=== PATIENT | female | born 1970 ===

== ENCOUNTER 2020-09-25 07:52 | Outpatient (REF) | payer OTHER, SELFPAY ==
--- NOTE | 2020-09-25 | US_ITS ---
EXAMINATION: US RETROPERITONEAL LIMITED (RENAL ONLY) CLINICAL INFORMATION: Follow-up renal cyst. History of nephroblastoma. COMPARISON: None. TECHNIQUE: Routine grayscale imaging of kidneys was performed. FINDINGS: RIGHT KIDNEY: 14.6 x 5.8 x 7.7 cm (SAG x AP x TRV). The kidney is normal in size, contour, and echogenicity. Renal cortical thickness is normal. No calculi or focal parenchymal lesions. No hydronephrosis. LEFT KIDNEY: Left kidney removed 4 years ago. US/US renal BI IMPRESSION: Unremarkable right kidney. The left kidney has been surgically removed.
== END 2020-09-25 07:53 | disposition home or self-care (01) ==
LOC: HO.US 07:52
PROVIDERS: PCP Internal Medicine; Visit Provider Internal Medicine Nephrology
DX: C64.2 Malignant neoplasm of left kidney, except renal pelvis (principal); N28.1 Cyst of kidney, acquired; Z90.5 Acquired absence of kidney
CPT/HCPCS: 76775

== ENCOUNTER → 2020-10-10 07:59 | Outpatient (BNVA) | payer OTHER, SELFPAY | PROVIDERS: PCP Internal Medicine; Referring Provider Internal Medicine; Visit Provider Student in an Organized Health Care Education/Training Program | DX: Z76.89 Persons encountering health services in other specified circumstances (principal) ==

== ENCOUNTER 2020-12-15 09:30 | Outpatient (REF) | payer OTHER, SELFPAY ==
--- NOTE | 2020-12-15 | MM_ITS ---
EXAMINATION: MM SCREENING DIGITAL BREAST TOMOSYNTHESIS, BILATERAL CLINICAL INFORMATION: Screening. Asymptomatic. The lifetime risk of breast cancer based on the Tyrer-Cuzick Model is 14%. COMPARISON: Mammography: 12/10/2019, 08/28/2018, 07/15/2017 TECHNIQUE: Digital breast tomosynthesis is performed in both the craniocaudal and mediolateral oblique views along with computer-aided detection (CAD). Synthesized 2D images are generated from the tomosynthesis. FINDINGS: There are scattered areas of fibroglandular density (ACR BI-RADS breast composition Category b). There are no significant masses, abnormal calcifications, or other abnormalities. Parenchymal pattern is similar to prior exams. No significant changes. MM/MM tomosynthesis screening BI IMPRESSION: No mammographic evidence of malignancy. ASSESSMENT: BI-RADS 1: Negative RECOMMENDATION: Routine annual mammography screening. This patient's information was entered into a reminder system with a target due date for their next mammogram.
== END 2020-12-15 09:31 | disposition home or self-care (01) ==
LOC: HO.MAMMO 09:30
PROVIDERS: PCP Internal Medicine; Visit Provider Internal Medicine
DX: Z12.31 Encounter for screening mammogram for malignant neoplasm of breast (principal)
CPT/HCPCS: 77063; 77067

== ENCOUNTER 2021-01-29 09:54 | Outpatient (REF) | payer OTHER, SELFPAY ==
[2021-01-30 13:32] LABS: C. trachomatis RNA TMA NOT DETECTED (NOT DETECTED); N. gonorrhoeae RNA TMA NOT DETECTED (NOT DETECTED)
== END 2021-01-29 09:55 | disposition home or self-care (01) ==
LOC: HO.LAB 09:54
PROVIDERS: PCP Internal Medicine; Visit Provider Obstetrics & Gynecology
DX: Z01.419 Encounter for gynecological examination (general) (routine) without abnormal findings (principal); K64.9 Unspecified hemorrhoids; Z86.010 Personal history of colon polyps; Z79.899 Other long term (current) drug therapy; R10.2 Pelvic and perineal pain
CPT/HCPCS: 36415; 87491; 87591

== ENCOUNTER 2021-02-27 06:54 | Day surgery (SDC) | payer OTHER, SELFPAY ==
--- NOTE | 2021-02-26 08:51 | P.CONAN_ITS ---
Documented by User: Anisa Casarez 02/26/21 08:54 HPI - Anesthesia Eval Consult details Narrative: 50yo F for Colonoscopy PMFSH Active Problems Active Problems: All Active Problems (Updated 01/30/21 @ 15:25 by Sindhu Ocasio PA-C) Left wrist pain (Acute) Annual physical exam (Acute) Impaired glucose tolerance (Acute) Well woman exam (Acute) Pelvic pain (Acute) History of colon polyps (Acute) Anxiety and depression (Acute) GERD (gastroesophageal reflux disease) (Acute) Hypercholesterolemia (Acute) Obesity (BMI 30-39.9) (Acute) Asthma (Acute) MARIO positive (Acute) Past Medical History Medical History (Updated 02/27/21 @ 08:27 by Shannan Howard) Abdominal wall hernia MARIO positive Anxiety and depression Asthma Dysplasia of cervix, low grade (REGINE 1) GERD (gastroesophageal reflux disease) History of colon polyps History of pulmonary embolism Hypercholesterolemia Insomnia Irritable bowel syndrome Obesity (BMI 30-39.9) Peroneal tendon rupture Tubular adenoma of colon Wilms' tumor Family History Family History Father Diabetes Chronic mental illness Mother Hypertension CVD (cardiovascular disease) Cancer Maternal Grandfather Breast cancer Paternal Grandmother Breast cancer Paternal Aunt Breast cancer Brother Pancreatic cancer Daughter In good health Maternal Uncle Myocardial infarction Maternal Aunt CHF (congestive heart failure) Surgical History Surgical History History of abdominal hysterectomy History of cystoscopy History of nephrectomy Hx of breast reduction, elective Hx of colonoscopy Hx of tonsillectomy S/P peroneal tendon repair Social History Social History Household Members: Spouse and Children Alcohol intake: current Alcohol intake frequency: does not drink Alcohol type: wine Smoking Status: Never smoker Use of substances other than those prescribed or required for medical reasons: No Advance Directives: No Advance Directives Information Provided: Yes Current occupational status: employed 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 Allergies Allergy/AdvReac Type Severity Reaction Status Date / Time No Known Allergies Allergy Verified 02/20/21 16:35 Home Medications Medication Instructions Recorded Confirmed Last Taken Type acetaminophen 650 mg 650 mg PO Q8H 10/10/20 02/20/21 Unknown History tablet,extended release biotin 10 mg tablet 10 mg PO DAILY 10/10/20 02/20/21 Unknown History cholecalciferol (vitamin D3) 50 50 mcg PO DAILY 10/10/20 02/20/21 Unknown History mcg (2,000 unit) capsule fluticasone furoate 100 1 inh INHALATION DAILY 10/10/20 02/27/21 02/27/21 05:30 History mcg-vilanterol 25 mcg/dose inhalation powder multivitamin 1 tab PO DAILY 10/10/20 02/20/21 Unknown History mometasone 50 mcg/actuation nasal 2 spray INTRANASAL DAILY 12/15/20 02/20/21 Unknown History spray prenat.vits,alyce,wwo-gusk-fxhtq 1 tab PO BEDTIME 12/15/20 02/20/21 Unknown History albuterol sulfate 2 puff PO Q6H PRN 02/20/21 02/20/21 Unknown History fluticasone propionate 2 spray INTRANASAL DAILY 02/20/21 02/20/21 Unknown History Exam Exam Date and Time: February 26, 2021 0851 Assessment and Plan Assessment Anesthesia Assessment: Chart Reviewed Documented by User: Shannan Howard 02/27/21 08:31 [facility] Past Medical History Medical History (Updated 02/27/21 @ 08:27 by Shannan Howard) Abdominal wall hernia MARIO positive Anxiety and depression Asthma Dysplasia of cervix, low grade (REGINE 1) GERD (gastroesophageal reflux disease) History of colon polyps History of pulmonary embolism Hypercholesterolemia Insomnia Irritable bowel syndrome Obesity (BMI 30-39.9) Peroneal tendon rupture Tubular adenoma of colon Wilms' tumor Family History Family History Father Diabetes Chronic mental illness Mother Hypertension CVD (cardiovascular disease) Cancer Maternal Grandfather Breast cancer Paternal Grandmother Breast cancer Paternal Aunt Breast cancer Brother Pancreatic cancer Daughter In good health Maternal Uncle Myocardial infarction Maternal Aunt CHF (congestive heart failure) Family history of problems with anesthesia: No Surgical History Surgical History History of abdominal hysterectomy History of cystoscopy History of nephrectomy Hx of breast reduction, elective Hx of colonoscopy Hx of tonsillectomy S/P peroneal tendon repair History of Problems with Anesthesia: No Social History Social History Household Members: Spouse and Children Alcohol intake: current Alcohol intake frequency: does not drink Alcohol type: wine Smoking Status: Never smoker Use of substances other than those prescribed or required for medical reasons: No Advance Directives: No Advance Directives Information Provided: Yes Current occupational status: employed 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 Allergies Allergy/AdvReac Type Severity Reaction Status Date / Time No Known Allergies Allergy Verified 02/20/21 16:35 Home Medications Medication Instructions Recorded Confirmed Last Taken Type acetaminophen 650 mg 650 mg PO Q8H 10/10/20 02/20/21 Unknown History tablet,extended release biotin 10 mg tablet 10 mg PO DAILY 10/10/20 02/20/21 Unknown History cholecalciferol (vitamin D3) 50 50 mcg PO DAILY 10/10/20 02/20/21 Unknown Hi story mcg (2,000 unit) capsule fluticasone furoate 100 1 inh INHALATION DAILY 10/10/20 02/27/21 02/27/21 05:30 History mcg-vilanterol 25 mcg/dose inhalation powder multivitamin 1 tab PO DAILY 10/10/20 02/20/21 Unknown History mometasone 50 mcg/actuation nasal 2 spray INTRANASAL DAILY 12/15/20 02/20/21 Unknown History spray prenat.vits,alyce,aks-jayx-cpmii 1 tab PO BEDTIME 12/15/20 02/20/21 Unknown History albuterol sulfate 2 puff PO Q6H PRN 02/20/21 02/20/21 Unknown History fluticasone propionate 2 spray INTRANASAL DAILY 02/20/21 02/20/21 Unknown History Exam Height,Weight and Vital Signs: Height 5 ft 2 in Weight 73.028 kg Vital Signs Temp Pulse Resp BP Pulse Ox 02/27/21 07:47 97.1 F 80 16 119/60 100 Airway Mallampati Class: II TM Dist: >3cm Neck ROM: Full Loose/Missing/Broken Teeth: No (Posts in place for dental implants) Heart: RRR Lungs: CTAB Assessment and Plan Assessment Anesthesia Assessment: Anesthesia Plan Discussed and Chart Reviewed Final Anesthetic Review NPO: Yes ASA Class: II Final Preanesthetic Review: No Changes in Pt Med Stat, Meds/Allgs Chart Reviewed, Consent Obtained/Reviewed and Anes Risks/Benef Reviewed Patient Risk: Low Procedure Risk: Low Assessment/Block/Sedation in SS: Assess/Block/Sedation-SS Anesthetic Plan Anesthetic Plan: MAC: Disposition: Standard PACU
[2021-02-27 07:47] VITALS: BP 119/60; PULSE 80; RESP 16; TEMP 36.2; O2SAT 100
[2021-02-27] MEDS: Lactated Ringers 1,000 ML 100 ML IVCONT (07:54)
[2021-02-27 08:26] VITALS: BMI 29.4
--- NOTE | 2021-02-27 08:38 | MHC.SHP ---
Pre-Procedural Eval Section A The patient is an INPATIENT: No Changes since office visit: Yes Patient answered all questions; No Cold of Flu in the past 2 weeks, No New Medical Problems and No Changes in Medication The History & Physical has been completed within 30 days and I have reviewed it.: Yes Section B Chief Complaint: Hx of Colon Polyp Allergies: Allergies Allergy/AdvReac Type Severity Reaction Status Date / Time No Known Allergies Allergy Verified 02/20/21 16:35 Plan I have reviewed the history and physical and performed a pertinent physical examination on my patient. No changes have occurred unless specified.
--- NOTE | 2021-02-27 08:48 | MHC.SHP ---
Pre-Procedural Eval Section A The patient is an INPATIENT: No Changes since office visit: No Cold of Flu in the past 2 weeks, No New Medical Problems and No Changes in Medication The History & Physical has been completed within 30 days and I have reviewed it.: Yes Section B Chief Complaint: Hx of Colon Polyp; TUBULAR ADENOMA SPLENIC FLEXURE Allergies: Allergies Allergy/AdvReac Type Severity Reaction Status Date / Time No Known Allergies Allergy Verified 02/20/21 16:35 Plan I have reviewed the history and physical and performed a pertinent physical examination on my patient. No changes have occurred unless specified.YES
[2021-02-27 09:34] VITALS: BP 108/62; PULSE 90; RESP 12; TEMP 36.6; O2SAT 100
--- NOTE | 2021-02-27 09:37 | PM.OP ---
Brief Operative Note Date of Service: 02/27/21 Pre-op diagnosis: COLON CANCER SCREENING, HX [id number] FLEXURE, 2015-NEG Post-op diagnosis: other (COLON POLYPS) Procedure: COLONOSCOPY WITH EXCISIONAL POLYPECTOMY X 2(COLD BX FORCEPS) Implants: NONE Surgeon: Rebecca Baez MD Anesthesia: MAC (Jude ODEN CRNA) Estimated blood loss (mL): 5 Pathology: other (70 CM) Condition: stable Disposition: PACU
[2021-02-27 09:49] VITALS: BP 120/65; PULSE 83; RESP 17; TEMP 36.6; O2SAT 98
--- NOTE | 2021-02-27 09:51 | W.PM.OPN ---
Operative Note Operative Note Date of Service: 02/27/21 Narrative: Pre-op diagnosis: COLON CANCER SCREENING, HX [id number] FLEXURE, 2015-NEG Post-op diagnosis: other (COLON POLYPS) Procedure: COLONOSCOPY WITH EXCISIONAL POLYPECTOMY X 2(COLD BX FORCEPS) Implants: NONE Surgeon: Rebecca Baez MD Anesthesia: MAC (Jude ODEN CRNA) FINDINGS: BHAVIN:Normal sphincter tone Adult slim videocolonoscope was introduced with out difficulty. There was residual fluid retained with some turbidity. This necessitated ongoing flushing and suctioning as I advanced from rectum to ascending colon into the cecum. 1000cc of sterile water was used to allow adequated visibility. Appendiceal orifice, ileocecal valve was seen. Slow withdrawal of scope good rotational views I did identify and remove 2 polyps in the region of 70 cm.(Cold bx forceps technique.) No additional lesions seen. ARV was clear. Estimated blood loss (mL): 5 Pathology: 70 CM 2 polyps--PATH REPORT BACK @ [facility]: TUBULAR ADENOMA. Condition: stable Disposition: PACU Plan: REPEAT SCREENING IN 5 YEARS--CONSIDER 2 DAY PREP.
== END 2021-02-27 10:25 | disposition home or self-care (01) ==
PROVIDERS: PCP Internal Medicine; Visit Provider Internal Medicine Gastroenterology
PROC: 0DJD8ZZ Inspection of Lower Intestinal Tract, Via Natural or Artificial Opening Endoscopic (ICD-10-PCS; CPT 45378; principal; 2021-02-27 08:20)
DX: Z12.11 Encounter for screening for malignant neoplasm of colon (principal); Z86.010 Personal history of colon polyps; D12.4 Benign neoplasm of descending colon
CPT/HCPCS: 45380; 88305

== ENCOUNTER 2021-03-19 13:48 | Outpatient (REF) | payer OTHER, SELFPAY ==
--- NOTE | ~2021-03-19 | US_ITS ---
EXAMINATION: PELVIC ULTRASOUND CLINICAL INFORMATION: Pelvic and perineal pain COMPARISON: Previous pelvic ultrasound exam most recent January [address] of the abdomen and pelvis July 2019 TECHNIQUE: Transabdominal and transvaginal pelvic ultrasound was performed. Transvaginal exam was performed for better visualization of the ovaries. The left ovary is seen transabdominally only. FINDINGS: The patient is post partial hysterectomy. There are nabothian cysts in the cervix. The right ovary is not seen. The left ovary is slightly enlarged measuring 5 x 2.2 x 3.7 cm. There are 2 simple left ovarian cysts measuring 1.7 x 1.3 x 1.5 cm and 1.3 x 1.2 x 1.4 cm. These are new from previous exam. There is no fluid in the pelvis. US/US transvaginal IMPRESSION: Two left ovarian small simple cysts. Right ovary not seen.
--- NOTE | ~2021-03-19 | US_ITS ---
EXAMINATION: PELVIC ULTRASOUND CLINICAL INFORMATION: Pelvic and perineal pain COMPARISON: Previous pelvic ultrasound exam most recent January [address] of the abdomen and pelvis July 2019 TECHNIQUE: Transabdominal and transvaginal pelvic ultrasound was performed. Transvaginal exam was performed for better visualization of the ovaries. The left ovary is seen transabdominally only. FINDINGS: The patient is post partial hysterectomy. There are nabothian cysts in the cervix. The right ovary is not seen. The left ovary is slightly enlarged measuring 5 x 2.2 x 3.7 cm. There are 2 simple left ovarian cysts measuring 1.7 x 1.3 x 1.5 cm and 1.3 x 1.2 x 1.4 cm. These are new from previous exam. There is no fluid in the pelvis. US/US pelvic complete IMPRESSION: Two left ovarian small simple cysts. Right ovary not seen.
== END 2021-03-19 13:49 | disposition home or self-care (01) ==
LOC: HO.US 13:48
PROVIDERS: PCP Internal Medicine; Visit Provider Obstetrics & Gynecology
DX: R10.2 Pelvic and perineal pain (principal)
CPT/HCPCS: 76830; 76856

== ENCOUNTER → 2021-04-02 11:06 | Outpatient (BNVA) | payer OTHER, SELFPAY | PROVIDERS: PCP Internal Medicine; Visit Provider Obstetrics & Gynecology ==

== ENCOUNTER 2021-04-06 14:09 | Outpatient (REF) | payer OTHER, SELFPAY ==
[2021-04-06 15:04] LABS: MANUAL DIFF FLAG NO
[2021-04-06 15:07] LABS: Basophils Absolute Auto 0.1 X10*3/uL (0.0-0.2); Basophils Percent Auto 0.6 % (0-2); Eosinophils Absolute Auto 0.3 X10*3/uL (0.0-0.4); Eosinophils Percent Auto 3.2 % (0-4); Hematocrit 39.2 % (37-47); Imm Gran Abs Auto 0.02 X10*3/uL (0.00-0.03); Imm Gran Pct Auto 0.3 % (0.0-0.4); Lymphocytes Absolute Auto 2.2 X10*3/uL (1.2-4.9); Lymphocytes Percent Auto 28.2 % (20-40); Mean Corpuscular HGB Conc 33.2 g/dl (31.0-35.0); Mean Corpuscular Hemoglobin 29.8 pg (27.0-33.0); Mean Corpuscular Volume 89.9 fL (80-98); Mean Platelet Volume 10.8 fL (9.4-12.3); Monocytes Absolute Auto 0.6 X10*3/uL (0.1-1.2); Monocytes Percent Auto 7.1 % (2-11); Neutrophils Absolute Auto 4.8 X10*3/uL (2.0-8.3); Neutrophils Percent Auto 60.6 % (45-73); Platelet Count 276 X10*3/uL (160-400); Red Blood Count 4.36 X10*6/uL (4.20-5.50); Red Cell Distribution Width 12.5 % (11.0-16.0); White Blood Count 7.9 X10*3/uL (4.8-10.8)
[2021-04-06 15:33] LABS: Alanine Aminotransferase 21 U/L (0-31); Albumin Level 4.1 g/dL (3.5-5.0); Alkaline Phosphatase 81 U/L (39-117); Anion Gap 11 (12-20); Aspartate Amino Transferase 27 U/L (5-31); Bilirubin Total 0.5 mg/dL (0.0-1.0); Blood Urea Nitrogen 6 mg/dL (9-16); Calcium 9.1 mg/dL (8.4-10.2); Carbon Dioxide 24 mmol/L (22-29); Chloride 105 mmol/L (96-108); Cholesterol 235 mg/dL; Estimated Glomerular Filt Rate > 60; Glucose Random 89 mg/dL (60-115); HDL Cholesterol 57 mg/dL; LDL Cholesterol Calculated 163 mg/dl; Potassium 4.2 mmol/L (3.3-5.1); Sodium 136 mmol/L (135-145); Triglycerides 76 mg/dL
[2021-04-06 15:54] LABS: Free T4 (Free Thyroxine) 1.02 ng/dL (0.71-1.85); Vitamin D 25-OH Total 32.3 ng/mL (>30)
[2021-04-06 16:04] LABS: Folate 16.7 ng/mL (> or = 4.0); Vitamin B12 865 pg/mL (200-900)
[2021-04-07 01:14] LABS: CT PCR NOT DETECTED (Not Detect.); NG PCR NOT DETECTED (Not Detect.)
[2021-04-09 04:26] LABS: HBS Num1 5.35 mIU/mL (0-7.99); HBc Num1 0.05 S/CO (0.00-0.79); HBsAGNum1 0.22 S/CO (0.00-0.99); Hepatitis B Core Antibody Nonreactive (Nonreactive); Hepatitis B Surface Antigen Negative (Negative); ~Hepatitis B Surface Antibody NONREACTIVE (Nonreactive)
[2021-04-21 01:47] LABS: Estradiol, Ultrasensitive 157 pg/mL
== END 2021-04-06 14:10 | disposition home or self-care (01) ==
LOC: HO.LAB 14:09
PROVIDERS: Obstetrics & Gynecology; PCP Internal Medicine; Visit Provider Internal Medicine
DX: R10.2 Pelvic and perineal pain (principal); E78.00 Pure hypercholesterolemia, unspecified; K21.9 Gastro-esophageal reflux disease without esophagitis
CPT/HCPCS: 36415; 80053; 80061; 82306; 82607; 82670; 82681; 82746; 84439; 84443; 85025; 86704; 86706; 87340; 87491; 87591

== ENCOUNTER 2021-10-25 13:04 | Outpatient (REF) | payer OTHER, SELFPAY ==
[2021-10-25 10:05] LABS: Anion Gap 8 (12-20); Blood Urea Nitrogen 8 mg/dL (9-16); Calcium 8.9 mg/dL (8.4-10.2); Carbon Dioxide 26 mmol/L (22-29); Chloride 108 mmol/L (96-108); Estimated Glomerular Filt Rate > 60; Potassium 4.1 mmol/L (3.3-5.1); Sodium 138 mmol/L (135-145)
[2021-10-25 10:14] LABS: Appearance Urine CLEAR; Color Urine YELLOW; Glucose Urine UA NEG (NEG); Leukocyte Esterase Urine NEG (NEG); Nitrite Urine NEG (NEG); PH 6.5 (5.0-8.0); Urine Blood NEG (NEG); Urine Ketones NEG (NEG); Urine Protein NEG (NEG-TRACE)
[2021-10-25 11:02] LABS: Total Protein Urine Random 10 mg/dL (<12)
== END 2021-10-25 13:05 | disposition home or self-care (01) ==
LOC: HO.LAB 13:04
PROVIDERS: PCP Internal Medicine; Visit Provider Internal Medicine Nephrology
DX: C64.9 Malignant neoplasm of unspecified kidney, except renal pelvis (principal); N18.9 Chronic kidney disease, unspecified
CPT/HCPCS: 36415; 80051; 81003; 82310; 82565; 84156; 84520

== ENCOUNTER 2021-12-24 11:48 | Outpatient (REF) | payer OTHER, SELFPAY ==
--- NOTE | ~2021-12-24 | MM_ITS ---
EXAMINATION: MM SCREENING DIGITAL BREAST TOMOSYNTHESIS, BILATERAL CLINICAL INFORMATION: Screening. Asymptomatic. Prior reduction mammoplasty, 2017. Family history breast cancer, sister. The lifetime risk of breast cancer based on the Tyrer-Cuzick Model is 18%. COMPARISON: Mammography: 12/15/2020, 12/10/2019, 08/28/2018, 07/15/2017, MRI breasts 07/19/2019 TECHNIQUE: Digital breast tomosynthesis is performed in both the craniocaudal and mediolateral oblique views along with computer-aided detection (CAD). Synthesized 2D images are generated from the tomosynthesis. FINDINGS: There are scattered areas of fibroglandular density (ACR BI-RADS breast composition Category b). Parenchymal pattern is similar to prior studies. There is stable minor scarring consistent with the reduction mammoplasty. There is no interval mass or architectural abnormality or developing density. Some scattered benign round and rim calcifications are again noted. There are no significant changes. MM/MM tomosynthesis screening BI IMPRESSION: No significant changes from prior studies. ASSESSMENT: BI-RADS 2: Benign RECOMMENDATION: Routine annual mammography screening. This patient's information was entered into a reminder system with a target due date for their next mammogram.
== END 2021-12-24 11:49 | disposition home or self-care (01) ==
LOC: HO.MAMMO 11:48
PROVIDERS: Visit Provider Internal Medicine
DX: Z12.31 Encounter for screening mammogram for malignant neoplasm of breast (principal)
CPT/HCPCS: 77063; 77067

== ENCOUNTER 2022-01-30 11:34 | Outpatient (REF) | payer OTHER, SELFPAY ==
--- NOTE | ~2022-01-30 | XR_ITS ---
EXAMINATION: XR wrist RT w scaphoid CLINICAL INFORMATION: Pain COMPARISON: None TECHNIQUE: 4 views of the wrist XR/XR wrist RT w scaphoid FINDINGS/IMPRESSION: No fracture or dislocation. Joint spaces are maintained. No cortical erosion. Soft tissues are unremarkable.
== END 2022-01-30 11:35 | disposition home or self-care (01) ==
LOC: HO.XRAY 11:34
PROVIDERS: PCP Internal Medicine; Visit Provider Nurse Practitioner Family
DX: M25.531 Pain in right wrist (principal)
CPT/HCPCS: 73110

== ENCOUNTER 2022-02-04 09:56 | Outpatient (REF) | payer OTHER, SELFPAY ==
[2022-02-04 14:41] LABS: CT PCR NOT DETECTED (Not Detect.); NG PCR NOT DETECTED (Not Detect.)
[2022-02-05 14:10] LABS: BV Int Neg Control Negative (Negative); BV Int Pos Control Positive (Positive)
[2022-02-07 11:00] LABS: HPV mRNA E6/E7 rflx Not Detected (Not Detected)
== END 2022-02-04 09:57 | disposition home or self-care (01) ==
LOC: HO.LAB 09:56
PROVIDERS: Visit Provider Obstetrics & Gynecology
DX: Z01.419 Encounter for gynecological examination (general) (routine) without abnormal findings (principal); B37.3 Candidiasis of vulva and vagina
CPT/HCPCS: 87480; 87491; 87510; 87591; 87624; 87660; 88142

== ENCOUNTER → 2022-02-22 08:07 | Outpatient (BNVA) | payer OTHER, SELFPAY | PROVIDERS: Visit Provider Physician Assistant | DX: Z13.89 Encounter for screening for other disorder (principal) ==

== ENCOUNTER 2022-03-29 10:53 | Outpatient (REF) | payer OTHER, SELFPAY ==
--- NOTE | ~2022-03-29 | XR_ITS ---
EXAMINATION: BILATERAL HAND AND WRIST X-RAY CLINICAL INFORMATION: Pain. History of right wrist injury COMPARISON: None TECHNIQUE: 4 views of both hands and wrists FINDINGS: Left: Bone alignment is normal. No fracture or dislocation is seen. The joint spaces are normal. Soft tissues are normal. Right: Bone alignment is normal. No fracture or dislocation is seen. The joint spaces are normal. XR/XR hand wrist LT IMPRESSION: Unremarkable exam.
--- NOTE | ~2022-03-29 | XR_ITS ---
EXAMINATION: BILATERAL HAND AND WRIST X-RAY CLINICAL INFORMATION: Pain. History of right wrist injury COMPARISON: None TECHNIQUE: 4 views of both hands and wrists FINDINGS: Left: Bone alignment is normal. No fracture or dislocation is seen. The joint spaces are normal. Soft tissues are normal. Right: Bone alignment is normal. No fracture or dislocation is seen. The joint spaces are normal. XR/XR hand wrist RT IMPRESSION: Unremarkable exam.
[2022-03-29 11:05] LABS: MANUAL DIFF FLAG NO
[2022-03-29 11:29] LABS: Basophils Percent Auto 0.5 % (0-2); Eosinophils Absolute Auto 0.3 X10*3/uL (0.0-0.4); Hematocrit 39.1 % (37.0-47.0); Hemoglobin 12.8 g/dl (12.0-16.0); Imm Gran Abs Auto 0.02 X10*3/uL (0.00-0.03); Imm Gran Pct Auto 0.3 % (0.0-0.4); Lymphocytes Absolute Auto 2.4 X10*3/uL (1.2-4.9); Lymphocytes Percent Auto 32.4 % (20-40); Mean Corpuscular HGB Conc 32.7 g/dl (31.0-35.0); Mean Corpuscular Hemoglobin 29.2 pg (27.0-33.0); Mean Corpuscular Volume 89.3 fL (80.0-98.0); Mean Platelet Volume 10.7 fL (9.4-12.3); Monocytes Absolute Auto 0.6 X10*3/uL (0.1-1.2); Monocytes Percent Auto 7.5 % (2-11); Neutrophils Absolute Auto 4.1 x10*3/uL (2.0-8.3); Neutrophils Percent Auto 55.3 % (45-73); Platelet Count 282 X10*3/uL (160-400); Red Blood Count 4.38 X10*6/uL (4.20-5.50); White Blood Count 7.5 X10*3/uL (4.8-10.8)
[2022-03-29 11:46] LABS: Estimated Average Glucose 114 mg/dL; Hemoglobin A1c % 5.6 %
[2022-03-29 12:14] LABS: Alanine Aminotransferase 21 U/L (0-31); Albumin Level 4.1 g/dL (3.5-5.0); Alkaline Phosphatase 79 U/L (39-117); Anion Gap 11 (12-20); Aspartate Amino Transferase 25 U/L (5-31); Bilirubin Total 0.5 mg/dL (0.0-1.0); Blood Urea Nitrogen 11 mg/dL (9-16); Calcium 9.6 mg/dL (8.4-10.2); Carbon Dioxide 25 mmol/L (22-29); Chloride 109 mmol/L (96-108); Cholesterol 238 mg/dL; Estimated Glomerular Filt Rate > 60; Glucose Random 100 mg/dL (60-115); HDL Cholesterol 57 mg/dL; LDL Cholesterol Calculated 170 mg/dl; Potassium 4.2 mmol/L (3.3-5.1); Sodium 141 mmol/L (135-145); Total Protein 7.3 g/dL (6.5-8.0); Triglycerides 59 mg/dL
[2022-03-29 12:29] LABS: Thyroid Stimulating Hormone 0.95 uIU/mL (0.32-4.0); Vitamin D 25-OH Total 29.8 ng/mL (>30)
[2022-03-29 12:32] LABS: Folate 18.6 ng/mL (> or = 4.0); Vitamin B12 995 pg/mL (200-900)
== END 2022-03-29 10:54 | disposition home or self-care (01) ==
LOC: HO.XRAY 10:53
PROVIDERS: PCP Internal Medicine; Visit Provider Internal Medicine
DX: M25.532 Pain in left wrist (principal); M25.531 Pain in right wrist; E78.00 Pure hypercholesterolemia, unspecified; R73.02 Impaired glucose tolerance (oral)
CPT/HCPCS: 36415; 73110; 73130; 80053; 80061; 82306; 82607; 82746; 83036; 84439; 84443; 85025

== ENCOUNTER → 2022-04-12 08:16 | Outpatient (BNVA) | payer OTHER, SELFPAY | PROVIDERS: PCP Internal Medicine; Visit Provider Physician Assistant | DX: M65.4 Radial styloid tenosynovitis [de Quervain] (principal) | CPT/HCPCS: 99212; J1100 ==

== ENCOUNTER 2022-09-21 11:23 | Outpatient (REF) | payer OTHER, SELFPAY ==
--- NOTE | ~2022-09-21 | XR_ITS ---
EXAMINATION: XR ABDOMEN KUB CLINICAL INDICATION: Gross hematuria COMPARISON: Renal ultrasound 09/25/[address] abdomen pelvis 08/11/2019 TECHNIQUE: Single view, two film KUB of the abdomen was obtained. Overlying stool limits sensitivity for small renal calculi. FINDINGS: No focal densities are appreciated overlying the renal shadows or expected course of the ureters. Calcifications in the pelvis are most consistent with phleboliths. Nonobstructive bowel gas pattern. Moderate colonic stool burden. No acute osseous abnormality. XR/XR KUB IMPRESSION: No radiographic evidence of renal calculi overlying the renal shadows or expected course of the ureters.
== END 2022-09-21 11:24 | disposition home or self-care (01) ==
LOC: HO.HMGCX 11:23
PROVIDERS: PCP Internal Medicine; Visit Provider Physician Assistant
DX: R31.0 Gross hematuria (principal)
CPT/HCPCS: 74018

== ENCOUNTER 2022-09-27 10:35 | Outpatient (REF) | payer OTHER, SELFPAY ==
[2022-09-27 10:49] LABS: MANUAL DIFF FLAG NO
[2022-09-27 11:00] LABS: Basophils Absolute Auto 0.1 X10*3/uL (0.0-0.2); Basophils Percent Auto 0.7 % (0-2); Eosinophils Absolute Auto 0.3 X10*3/uL (0.0-0.4); Eosinophils Percent Auto 3.5 % (0-4); Hemoglobin 13.2 g/dl (12.0-16.0); Imm Gran Abs Auto 0.03 X10*3/uL (0.00-0.03); Imm Gran Pct Auto 0.4 % (0.0-0.4); Lymphocytes Absolute Auto 2.1 X10*3/uL (1.2-4.9); Lymphocytes Percent Auto 29.1 % (20-40); Mean Corpuscular Hemoglobin 29.2 pg (27.0-33.0); Mean Corpuscular Volume 88.5 fL (80.0-98.0); Mean Platelet Volume 10.5 fL (9.4-12.3); Monocytes Absolute Auto 0.5 X10*3/uL (0.1-1.2); Monocytes Percent Auto 6.8 % (2-11); Neutrophils Absolute Auto 4.2 x10*3/uL (2.0-8.3); Neutrophils Percent Auto 59.5 % (45-73); Platelet Count 297 X10*3/uL (160-400); Red Blood Count 4.52 X10*6/uL (4.20-5.50); Red Cell Distribution Width 12.7 % (11.0-16.0); White Blood Count 7.1 X10*3/uL (4.8-10.8)
[2022-09-27 11:28] LABS: Alanine Aminotransferase 15 U/L (0-31); Albumin Level 4.3 g/dL (3.5-5.0); Alkaline Phosphatase 88 U/L (39-117); Anion Gap 16 (12-20); Aspartate Amino Transferase 23 U/L (5-31); Bilirubin Total 0.5 mg/dL (0.0-1.0); Blood Urea Nitrogen 11 mg/dL (9-16); Calcium 9.6 mg/dL (8.4-10.2); Carbon Dioxide 22 mmol/L (22-29); Chloride 107 mmol/L (96-108); Estimated Glomerular Filt Rate > 60; Glucose Random 108 mg/dL (60-115); Magnesium 2.1 mg/dL (1.6-2.6); Sodium 141 mmol/L (135-145); Total Protein 7.3 g/dL (6.5-8.0)
[2022-09-27 14:56] LABS: Free T4 (Free Thyroxine) 1.35 ng/dL (0.71-1.85); Thyroid Stimulating Hormone 0.83 uIU/mL (0.32-4.0)
== END 2022-09-27 10:36 | disposition home or self-care (01) ==
LOC: HO.LAB 10:35
PROVIDERS: PCP Internal Medicine; Visit Provider Internal Medicine
DX: K52.9 Noninfective gastroenteritis and colitis, unspecified (principal)
CPT/HCPCS: 36415; 80053; 83735; 84439; 84443; 85025

== ENCOUNTER 2022-09-28 07:27 | Outpatient (REF) | payer OTHER, SELFPAY | END 2022-09-28 07:28 | disposition home or self-care (01) | LOC: HO.LNP 07:27 | PROVIDERS: Visit Provider Internal Medicine | DX: K52.9 Noninfective gastroenteritis and colitis, unspecified (principal) | CPT/HCPCS: 87177; 87209 ==

== ENCOUNTER 2022-09-30 15:06 | Outpatient (REF) | payer OTHER, SELFPAY ==
[2022-09-30 15:43] LABS: Leukocytes Stool Qualitative NEGATIVE (NEGATIVE)
[2022-09-30 17:13] LABS: CDiff Gene PCR NEGATIVE (Negative)
== END 2022-09-30 15:07 | disposition home or self-care (01) ==
LOC: HO.LNP 15:06
PROVIDERS: Visit Provider Internal Medicine
DX: K52.9 Noninfective gastroenteritis and colitis, unspecified (principal)
CPT/HCPCS: 87177; 87209; 87338; 87493; 89055

== ENCOUNTER → 2022-12-04 13:20 | Outpatient (BNVA) | payer OTHER, SELFPAY | PROVIDERS: PCP Internal Medicine; Visit Provider Internal Medicine | DX: Z13.89 Encounter for screening for other disorder (principal) ==

== ENCOUNTER 2022-12-30 11:30 | Outpatient (REF) | payer OTHER, SELFPAY ==
--- NOTE | ~2022-12-30 | MM_ITS ---
EXAMINATION: MM SCREENING DIGITAL BREAST TOMOSYNTHESIS, BILATERAL CLINICAL INFORMATION: Screening. Asymptomatic. Status post breast reduction surgery. Sister with history of breast cancer at age 32. The lifetime risk of breast cancer based on the Tyrer-Cuzick Model is 17.2%. COMPARISON: Mammography: 12/24/2021 and studies dating back to 01/22/2016. TECHNIQUE: Digital breast tomosynthesis is performed in both the craniocaudal and mediolateral oblique views along with computer-aided detection (CAD). Synthesized 2D images are generated from the tomosynthesis. FINDINGS: There are scattered areas of fibroglandular density (ACR BI-RADS breast composition Category b). Postoperative changes from reduction mammoplasty seen bilaterally. There is a stable parenchymal pattern within the left breast with no new abnormal dominant masses or suspicious grouping of microcalcifications. Within the inferior aspect of the right breast, there are a few groupings of calcifications, some of which appear to have increased in number and for which spot magnification views in craniocaudal and 90-degree mediolateral views are recommended. MM/MM tomosynthesis screening BI IMPRESSION: Right breast calcifications for further evaluation. ASSESSMENT: BI-RADS 0: Incomplete - Need additional imaging evaluation. RECOMMENDATION: 1. Additional views of the right breast. 2. Targeted ultrasound if warranted after review of the additional views. 3. Radiology department staff will contact the patient for additional imaging. This patient's information was entered into a reminder system with a target due date for their next mammogram.
== END 2022-12-30 11:31 | disposition home or self-care (01) ==
LOC: HO.MAMMO 11:30
PROVIDERS: PCP Internal Medicine; Visit Provider Internal Medicine
DX: Z12.31 Encounter for screening mammogram for malignant neoplasm of breast (principal)
CPT/HCPCS: 77063; 77067

== ENCOUNTER 2023-01-06 08:44 | Outpatient (REF) | payer OTHER, SELFPAY ==
--- NOTE | ~2023-01-06 | MM_ITS ---
EXAMINATION: MM DIAGNOSTIC DIGITAL MAMMOGRAPHY, RIGHT CLINICAL INFORMATION: Recall from screening for increased calcifications central lower right breast. Prior history reduction mammoplasty within past several years. Family history premenopausal breast cancer, sister age 32. COMPARISON: Mammography: 12/30/2022 and prior exams dating back to 03/25/2017. TECHNIQUE: Digital mammography is performed in the following views: Magnification CC, magnification ML, magnification MLO. FINDINGS: There are scattered areas of fibroglandular density (ACR BI-RADS breast composition Category b). The additional magnification views confirm some increased grouped and scattered calcifications posterior central lower right breast when compared with prior studies. Results are discussed with the patient at time of visit. Although the calcifications are of low suspicion, possibly related to the reduction mammoplasty, stereotactic sampling is suggested to confirm benignity particularly in light of family history. Patient is in agreement. MM/MM added views RT IMPRESSION: Increased calcifications posterior central lower right breast. ASSESSMENT: BI-RADS 4: Suspicious (subcategory 4A: Low suspicion for malignancy) RECOMMENDATION: Stereotactic sampling right breast calcifications. This patient's information was entered into a reminder system with a target due date for their next mammogram.
== END 2023-01-06 08:45 | disposition home or self-care (01) ==
LOC: HO.MAMMO 08:44
PROVIDERS: PCP Internal Medicine; Visit Provider Internal Medicine
DX: R92.1 Mammographic calcification found on diagnostic imaging of breast (principal)
CPT/HCPCS: 77065

== ENCOUNTER 2023-01-08 12:45 | Outpatient (REF) | payer OTHER, SELFPAY ==
--- NOTE | ~2023-01-08 | MM_ITS ---
EXAMINATION: STEREOTACTIC TOMOSYNTHESIS-GUIDED VACUUM-ASSISTED BREAST BIOPSY, RIGHT SPECIMEN RADIOGRAPH, RIGHT POST PROCEDURE DIGITAL MAMMOGRAM, RIGHT CLINICAL INFORMATION: Calcifications central lower inner right breast likely related to sequela from reduction mammoplasty. Family history premenopausal breast cancer, sister age 32. COMPARISON: Mammography 01/06/2023, 12/30/2022, 12/24/2021. TECHNIQUE/PROCEDURE: Informed consent was obtained from the patient after discussion of the benefits, risks, and alternatives to biopsy today. Patient appeared to understand. Gave opportunity for questions. Patient signed consent form. BIOPSY TABLE: [employer] Prone Biopsy System. LESION: Calcifications central lower inner right breast. LOCAL ANESTHESIA: 10 mL carbonated 1% lidocaine; 10 mL 1% lidocaine with epinephrine. DERMATOTOMY: Single skin orville dermatotomy performed. NEEDLE: Noteiva 9-gauge vacuum assisted core biopsy device. APPROACH: Medial lateral. TARGETING: Combination of digital breast tomosynthesis and stereotactic digital mammography used for targeting. CORES: 6. CLIP: Pose [employer] Cylinder-shaped marker. SPECIMEN RADIOGRAPH: Specimen radiograph is taken in separate room using digital mammography. The index calcifications are in the excised cores. There are over 12 calcifications in the cores. POST PROCEDURE UNILATERAL DIGITAL MAMMOGRAM: The post biopsy mammogram is performed in separate room using separate digital mammography equipment from the biopsy procedure. CC and LM views are obtained. There are scattered areas of fibroglandular density (breast composition category: b). The clip marker is deployed. Suspect mild medial accordion effect. No gross hematoma. The patient tolerated the procedure well. No immediate complications. Home instructions reviewed with the patient. Final pathology results are pending. MM/MM stereotactic biopsy RT IMPRESSION: 1. Digital tomosynthesis-guided core biopsy right breast with clip placement. 2. Specimen radiograph taken and post procedure mammogram. 3. Final pathology results pending. An addendum report will be issued.
[2023-01-08] MEDS: Lidocaine HCl 1 % 20 ML VIAL 9 ML SUBCUT (14:41)
[2023-01-08] MEDS: Sodium Bicarbonate 8.4% 50 MEQ/50 ML VIAL SUBCUT (14:42)
[2023-01-08] MEDS: Lidocaine HCl 1% PF/Epi 1:200,000 30 ML VIAL 10 ML SUBCUT (14:43)
== END 2023-01-08 12:46 | disposition home or self-care (01) ==
LOC: HO.MAMMO 12:45
PROVIDERS: PCP Internal Medicine; Visit Provider Surgery
DX: R92.0 Mammographic microcalcification found on diagnostic imaging of breast (principal); Z79.899 Other long term (current) drug therapy
CPT/HCPCS: 19081; 88305; A4648

== ENCOUNTER 2023-01-13 15:21 | Outpatient (REF) | payer OTHER, SELFPAY ==
[2023-01-13 16:15] LABS: C Reactive Protein 0.64 mg/dL (< or = 0.50)
[2023-01-14 14:33] LABS: Immunoglobulin A 271 mg/dL (47-310)
[2023-01-15 12:39] LABS: Transglutaminase IgA <1.0 U/mL
== END 2023-01-13 15:22 | disposition home or self-care (01) ==
LOC: HO.LAB 15:21
PROVIDERS: PCP Internal Medicine; Visit Provider Internal Medicine
DX: K52.9 Noninfective gastroenteritis and colitis, unspecified (principal)
CPT/HCPCS: 36415; 82784; 86140; 86364

== ENCOUNTER → 2023-01-14 11:14 | Outpatient (BNVA) | payer OTHER, SELFPAY | PROVIDERS: PCP Internal Medicine; Visit Provider Surgery | DX: R92.0 Mammographic microcalcification found on diagnostic imaging of breast (principal) ==

== ENCOUNTER 2023-01-14 12:50 | Outpatient (REF) | payer OTHER, SELFPAY ==
[2023-01-14 14:05] LABS: Leukocytes Stool Qualitative NEGATIVE (NEGATIVE)
[2023-01-14 15:04] LABS: Campylobacter Not Detected (Not Detect.); Cryptosporidium Not Detected (Not Detect.); E. coli EAEC Not Detected (Not Detect.); E. coli EPEC Not Detected (Not Detect.); E. coli ETEC Not Detected (Not Detect.); E. coli STEC Not Detected (Not Detect.); Plesiomonas shigelloides Not Detected (Not Detect.); Salmonella Not Detected (Not Detect.); Shigella sp./EIEC Not Detected (Not Detect.); Vibrio Not Detected (Not Detect.); Vibrio Cholerae Not Detected (Not Detect.); Yersinia enterocolitica Not Detected (Not Detect.)
[2023-01-14 15:05] LABS: Adenovirus F 40/41 Not Detected (Not Detect.); Astrovirus Not Detected (Not Detect.); Cyclospora cayetanensis Not Detected (Not Detect.); Entamoeba histolytica Not Detected (Not Detect.); Giardia lamblia Not Detected (Not Detect.); Norovirus GI/GII Not Detected (Not Detect.); Rotavirus A Not Detected (Not Detect.); Sapovirus Not Detected (Not Detect.)
[2023-01-21 00:40] LABS: Calprotectin, Fecal 6 mcg/g
== END 2023-01-14 12:51 | disposition home or self-care (01) ==
LOC: HO.LNP 12:50
PROVIDERS: Visit Provider Internal Medicine
DX: K52.9 Noninfective gastroenteritis and colitis, unspecified (principal)
CPT/HCPCS: 83993; 87507; 89055

== ENCOUNTER 2023-01-15 10:02 | Day surgery (SDC) | payer OTHER, SELFPAY ==
[2023-01-09 10:53] VITALS: BMI 27.4
[2023-01-15] VITALS (7 sets, daily range): BP systolic 113–141; BP diastolic 62–83; PULSE 76–97; RESP 18–20; TEMP 36.2–36.9; O2SAT 94–100; BMI 25.9
[2023-01-15] MEDS: Lactated Ringers 1,000 ML 50 ML IVCONT (12:28)
--- NOTE | 2023-01-15 12:55 | MHC.SHP ---
Pre-Procedural Eval Section A Date of Service: 01/15/23 Section B Chief Complaint: Chronic diarrhea, weight loss Details of Present Illness: Medical History Abdominal wall hernia MARIO positive Asthma De Quervain's disease (radial styloid tenosynovitis) Dysplasia of cervix, low grade (REGINE 1) GERD (gastroesophageal reflux disease) History of colon polyps History of pulmonary embolism Hypercholesterolemia Insomnia Irritable bowel syndrome Obesity (BMI 30-39.9) Peroneal tendon rupture Tubular adenoma of colon Wilms' tumor Surgical History History of abdominal hysterectomy History of cystoscopy History of nephrectomy Hx of breast reduction, elective Hx of colonoscopy Hx of tonsillectomy S/P peroneal tendon repair Allergies: Allergies Allergy/AdvReac Type Severity Reaction Status Date / Time No Known Allergies Allergy Verified 01/14/23 11:23 Review of Systems Review of Systems Comment: 10 point ROS negative except as above Exam Exam Comment: Gen appear: No acute distress, well nourished HEENT: no icterus Chest: No overt resp distress Abd: soft, nontender, nondistended Psych: Stable affect, answering questions appropriately Neuro: A/Ox3 noted to move all extremities spontaneously Ext: no peripheral edema Plan Diagnosis/Plan: Unchanged I have reviewed the history and physical and performed a pertinent physical examination on my patient. No changes have occurred unless specified. Time Spent With Patient Time: Total time managing care of this patient today ____ minutes.
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
--- NOTE | 2023-01-15 12:58 | P.OP_ITS ---
Operative Note Operative Note Date of Service: 01/15/23 Narrative: Procedure:?Esophagogastroduodenoscopy and Colonoscopy Indication:?Chronic diarrhea, weight loss Endoscopist:?Anna Marie Quiroz MD Anesthesia Provider:?Dr Winnie Jennings Anesthesia type:?MAC converted to general anesthesia. Instrument:?Olympus GIF-H190, [id number]-[id number] EGD Procedure:?? The procedure, indications, preparation and potential complications were reviewed with the patient, who indicated understanding and gave written informed consent to proceed. A physical exam was performed. The endoscope was introduced through the mouth, and advanced to the second part of the duodenum. The mucosa was carefully examined on slow withdrawal of the endoscope. The patient then developed laryngo and bronchospasm and dropped her O2 sats. She was intubated by the anesthesia provider and the procedure was then resumed. The patient tolerated the procedure well thereafter. There were no immediate complications.? ? EGD Findings:? * Esophagus: Normal mucosa noted in the entire esophagus. The Z line was at 39 cm. * Stomach:?Normal stomach mucosa. Random gastric biopsies were taken to rule out H Pylori infection. * Duodenum:? Normal mucosa to the extent seen.? Cold forceps biopsies were taken duodenal bulb and 2nd portion of the duodenum to rule out celiac sprue. Colonoscopy Procedure:? The patient was then turned for the colonoscopy. A digital rectal exam was performed which was normal. The colonoscope was then inserted through the anus and advanced through the colon to the cecum at 75 cm and terminal ileum. The appendiceal orifice and ileocecal valve was identified.? Mucosa was carefully examined under high definition white light as the instrument was slowly withdrawn in a retrograde panoramic fashion. Ascending colon was intubated twice. Retroflexion was performed in rectum. The procedure was somewhat difficult due to looping of scope in transverse colon. There were no immediate obvious complications. The quality of the prep was BBPS: 2+2+3 = adequate Withdrawal time 14 minutes. Limitations: No limitations. Colonoscopy Findings: Mucosa: Normal mucosa in whole colon and terminal ileum. Cold forceps biospies were taken from right and left side of the colon to rule out microscopic colitis. Protruding lesions: * 3 sessile polyp of size 3-6 mm in transverse colon. Cold snare polypectomy was performed. The polyps were completely removed and retrieved. * 1 pedunculated polyp of size 8 mm in transverse colon. Hot snare polypectomy was performed. The polyp was completely removed and retrieved. * Large internal hemorrhoids without stigmata of recent bleeding. Excavated lesions: * Moderate diverticulosis of sigmoid colon. Impression:? * Normal esophagus * Normal stomach (biopsy) * Normal duodenum (biopsy) * Normal terminal ileum mucosa * Normal colon mucosa (biopsy) * Internal hemorrhoids Recommendations:?? * Follow path results. * If microscopic colitis confirmed on path, will trial budesonide. * If all polyps are adenoma repeat colonoscopy recommended in 3 years. Above has been reviewed with the patient.
--- NOTE | 2023-01-15 15:10 | PC.NURSE ---
DR. ANDERSEN AWARE PATIENT LUNG SOUNDS TIGHT DRY COUGH. NEW ORDERS ANESTHESIA PULLED DUONEB TREATMENT
== END 2023-01-15 16:20 | disposition home or self-care (01) ==
PROVIDERS: PCP Internal Medicine; Visit Provider Internal Medicine
PROC: (CPT 45385; principal; 2023-01-15 11:20)
DX: K52.9 Noninfective gastroenteritis and colitis, unspecified (principal); Z86.010 Personal history of colon polyps; R63.4 Abnormal weight loss; Z68.27 Body mass index [BMI] 27.0-27.9, adult; D12.3 Benign neoplasm of transverse colon; K57.30 Diverticulosis of large intestine without perforation or abscess without bleeding; K64.8 Other hemorrhoids; K21.9 Gastro-esophageal reflux disease without esophagitis; J45.909 Unspecified asthma, uncomplicated; Z90.5 Acquired absence of kidney; Z85.528 Personal history of other malignant neoplasm of kidney; R76.0 Raised antibody titer; E78.00 Pure hypercholesterolemia, unspecified; Z79.899 Other long term (current) drug therapy
CPT/HCPCS: 45385; 45380; 43239; 88305; 88342; J0330; J1100; J2250; J2370; J2405; J3010

== ENCOUNTER → 2023-01-27 09:03 | Outpatient (BNVA) | payer OTHER, SELFPAY | PROVIDERS: PCP Internal Medicine; Visit Provider Internal Medicine | DX: Z13.89 Encounter for screening for other disorder (principal) ==

== ENCOUNTER 2023-03-04 10:08 | Outpatient (REF) | payer OTHER, SELFPAY ==
[2023-03-04 12:11] LABS: Appearance Urine Clear; Color Urine Yellow; Glucose Urine UA Negative (Negative); Leukocyte Esterase Urine Negative (Negative); Nitrite Urine Negative (Negative); PH 5.5 (5.0-9.0); Specific Gravity - Urine 1.015 (1.005-1.025); Urine Blood Negative (Negative); Urine Ketones Negative (Negative); Urine Protein Negative (Neg-Trace)
== END 2023-03-04 10:09 | disposition home or self-care (01) ==
LOC: HO.LAB 10:08
PROVIDERS: PCP Internal Medicine; Visit Provider Internal Medicine
DX: R31.0 Gross hematuria (principal)
CPT/HCPCS: 81003

== ENCOUNTER 2023-06-17 09:17 | Outpatient (AMB) | payer OTHER, SELFPAY ==
--- NOTE | 2023-06-17 09:35 | A.OFFVIS_ITS ---
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 No complaints. Last Pap/HPV was negative in 02/12 Last Mammogram was BI-RADS 4 a, biopsy showed benign tissue fibroadenoma Last Colonoscopy was in 01/16, the recommendation was to repeat in 5 years [facility] Medical History Abdominal wall hernia MARIO positive Asthma De Quervain's disease (radial styloid tenosynovitis) Dysplasia of cervix, low grade (REGINE 1) GERD (gastroesophageal reflux disease) History of colon polyps History of pulmonary embolism Hypercholesterolemia Insomnia Irritable bowel syndrome Obesity (BMI 30-39.9) Peroneal tendon rupture Tubular adenoma of colon Wilms' tumor Surgical History History of abdominal hysterectomy History of cystoscopy History of esophagogastroduodenoscopy (EGD) History of nephrectomy Hx of breast biopsy Hx of breast reduction, elective Hx of colonoscopy Hx of tonsillectomy S/P peroneal tendon repair Family History Father Diabetes Chronic mental illness Mental health disorder Mother Hypertension CVD (cardiovascular disease) Cancer Maternal Grandfather Breast cancer Paternal Grandmother Breast cancer Paternal Aunt Breast cancer Brother Pancreatic cancer Daughter In good health Maternal Uncle Myocardial infarction Maternal Aunt CHF (congestive heart failure) Social History Household Members: Spouse and Children Housing: Apartment Are you a primary certified social workers in health care to a significant other at home: No Do you presently have visiting nurse or other home services: No Alcohol intake: current Alcohol intake frequency: holidays/special occasions only Alcohol type: wine Patient Tobacco Use Status: Never used Tobacco e-Cigarette/Vaping Use: Never Used Second Hand Smoke Exposure: No service: No Current occupational status: unemployed 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 Sexually active: Yes Sexual orientation: Straight/Heterosexual Gender identity: Female Cognitive needs: No Hearing needs: No Vision needs: No Female Reproductive History Menstrual Age of Menarche: 10 Menopause type: natural Total pregnancies: 3 Full term: 3 Number of Living Children: 3 Date of last pap smear: 02/05/22 Date of Mammogram: 01/06/23 Review of Systems Const All systems reviewed & are unremarkable except as noted in HPI and below Card Reports as per HPI Resp Reports as per HPI GI Reports as per HPI and Reports no additional complaints Reports as per HPI Physical Exam Vital Signs: Last Vital Signs BP 116/68 06/17/23 09:36 BMI result Body Mass Index 28.5 Const General: cooperative, healthy appearing and comfortable Chest Chest palpation & inspection: normal inspection of the chest and normal palpation of entire chest wall Breast/axilla inspection: normal inspection of the breasts and normal inspection of the axillae Breast/axilla palpation: normal palpation of the breasts, normal palpation of the axillae and no axillary lymphadenopathy Resp Effort & Inspection: normal respiratory effort Auscultation: clear to auscultation bilaterally Percussion: percussion normal Cardio Palpation: normal PMI Rate: regular rate Rhythm: regular rhythm Heart sounds: no murmurs and no rubs Peripheral pulses: Peripheral pulses 2+ throughout GI Inspection: Yes normal to inspection Palpation (GI): Soft to palpation, nontender, no guarding, not rigid and No hepatosplenomegaly present Percussion: Yes normal to percussion Auscultation: normal bowel sounds Rectal Exam - Female: deferred General: Yes bladder normal to palpation External Female Exam: No lesion Speculum Exam - Vagina: normal appearance of the vagina, normal palpation, normal vaginal discharge and not erythematous Speculum Exam - Cervix: normal appearance of the cervix and normal palpation Bimanual exam- vagina & uterus: normal bimanual exam, normal palpation, uterine size normal, bladder normal to palpation, consistency normal and normal palpation Bimanual Exam- Adnexa, other: normal adnexae, no masses and no tenderness Assessment & Plan Assessment & Plan (1) Well woman exam: Code(s): Z01.419 - Encounter for gynecological examination (general) (routine) without abnormal findings Plan: Co testing not indicated this year. Counseled the patient about the recommended dietary allowance of 1200 mg of Calcium & 600 IU of vitamin D. Instructions given the patient to schedule her next screening Mammogram in 01/17, the patient is up-to-date with her screening colonoscopy . The patient was instructed to perform monthly self-breast exams and schedule annual exam in a year; all questions answered and the patient verbalized understanding. Coding Level of Care Code Est Pt Prev Care 40-64y(85438) Diagnoses Well woman exam Z01.419
[2023-06-17 09:36] VITALS: BP 116/68; BMI 28.5
== END 2023-06-17 10:13 | disposition home or self-care (01) ==
LOC: HO.HWS 09:17
PROVIDERS: PCP Internal Medicine; Visit Provider Obstetrics & Gynecology
DX: Z01.419 Encounter for gynecological examination (general) (routine) without abnormal findings (principal)
CPT/HCPCS: 99396

== ENCOUNTER → 2023-06-17 09:17 | Outpatient (BNVA) | payer OTHER, SELFPAY | PROVIDERS: PCP Internal Medicine; Visit Provider Obstetrics & Gynecology ==

== ENCOUNTER 2023-07-22 12:03 | Outpatient (REF) | payer OTHER, SELFPAY ==
--- NOTE | ~2023-07-22 | MM_ITS ---
EXAMINATION: MM DIAGNOSTIC DIGITAL MAMMOGRAPHY, RIGHT CLINICAL INFORMATION: Follow-up right breast calcifications status post benign stereotactic biopsy. COMPARISON: Mammography: 01/06/2023, 12/30/2022, 12/24/2021, and stereotactic biopsy 01/08/2023. TECHNIQUE: Digital mammography is performed utilizing 2-D spot magnification right CC and ML views. FINDINGS: There are scattered areas of fibroglandular density (ACR BI-RADS breast composition Category b). There is a biopsy clip in the approximately 5:00 location just inferior to the nipple line marking site of biopsy. There is a cylinder-shaped clip in this region, and a markedly decreased amount of calcifications in this region. No new calcifications, or aggressive changes are apparent. Findings are benign. Results are provided to the patient at time of visit by the technologist. MM/MM diagnostic mammo unilat RT IMPRESSION: Stable post biopsy changes right breast 5:00 axis without new aggressive features. Recommend the patient resume annual screening routine mammography. ASSESSMENT: BI-RADS BI-RADS 2 - Benign Findings RECOMMENDATION: 1 year F/U This patient's information was entered into a reminder system with a target due date for their next mammogram.
== END 2023-07-22 12:04 | disposition home or self-care (01) ==
LOC: HO.MAMMO 12:03
PROVIDERS: Visit Provider Surgery
DX: R92.8 Other abnormal and inconclusive findings on diagnostic imaging of breast (principal)
CPT/HCPCS: 77062; 77065

== ENCOUNTER → 2023-07-22 12:30 | Outpatient (BNV) | payer OTHER, SELFPAY | PROVIDERS: Visit Provider Radiology Diagnostic Radiology | DX: R92.1 Mammographic calcification found on diagnostic imaging of breast (principal) | CPT/HCPCS: 77065 ==

== ENCOUNTER 2023-07-31 09:43 | Outpatient (AMB) | payer OTHER, SELFPAY ==
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
[2023-07-31 09:46] VITALS: BP 144/90; PULSE 95; O2SAT 98; BMI 27.1
== END 2023-07-31 10:19 | disposition home or self-care (01) ==
PROVIDERS: PCP Internal Medicine; Visit Provider Nurse Practitioner Family
DX: F41.1 Generalized anxiety disorder (principal); F32.A Depression, unspecified
CPT/HCPCS: 99213

== ENCOUNTER 2023-09-17 10:00 | Outpatient (AMB) | payer OTHER, SELFPAY ==
--- NOTE | 2023-09-17 10:04 | MHC.PC.OV ---
Vital Signs 09/17/23 10:06 Height 5 ft 2 in Weight 148 lb BMI 27.1 BP 122/72 Blood Pressure Location Lt brachial Position Sitting Intake Visit Reasons: [facility], Hallucinations, 09/05-09/05 Intake Note: Patient is here for hospital discharge follow up. Patient was discharged from [facility] on 09/05/23 . Machine I Cutter Required: No Dispatcher Bus And Trolley: Present Accompanied by: Spouse Allergies No Known Allergies Allergy (Verified 09/28/23 13:06) Medication List - Last Reconciled 09/28/23 by Byron Kat MD acetaminophen ER (Tylenol Arthritis Pain) 650 mg PO Q8H albuterol sulfate 90 mcg/actuation 2 puffs PO Q6H PRN budesonide-formoterol 160-4.5 mcg/actuation (Symbicort) 2 puffs inhalation Q12H bupropion HCl 100 mg PO BID cholecalciferol (vitamin D3) 50 mcg PO DAILY fluticasone propionate 50 mcg/actuation 2 sprays intranasal DAILY hydroxyzine HCl 25 mg PO BID PRN multivitamin 1 tab PO DAILY quetiapine 25 mg PO BEDTIME Tobacco use date assessed: 09/17/23 Dental Screening Dental Screen Date: 09/17/23 HPI [facility], Hallucinations, 09/05-09/05 HPI Details 52-year-old female presents to the office after a recent hospitalization. Patient was in the psychiatry wing of the hospital after she had an acute episode of hallucinations. Her noted that she was talking to inanimate objects and took her to the hospital. She was there for a week and has been discharged home on Seroquel. Patient feels fine and reports she is at baseline state of health. [facility] Medical History (Updated 07/31/23 @ 10:19 by SAURAV King) De Quervain's disease (radial styloid tenosynovitis) Hypercholesterolemia History of colon polyps Peroneal tendon rupture Abdominal wall hernia History of pulmonary embolism Wilms' tumor Insomnia Dysplasia of cervix, low grade (REGINE 1) GERD (gastroesophageal reflux disease) Tubular adenoma of colon Obesity (BMI 30-39.9) Asthma Irritable bowel syndrome MARIO positive Surgical History History of esophagogastroduodenoscopy (EGD) Hx of breast biopsy History of cystoscopy Hx of colonoscopy S/P peroneal tendon repair History of nephrectomy Hx of breast reduction, elective Hx of tonsillectomy History of abdominal hysterectomy Family History Father Diabetes Chronic mental illness Mental health disorder Mother Hypertension CVD (cardiovascular disease) Cancer Maternal Grandfather Breast cancer Paternal Grandmother Breast cancer Paternal Aunt Breast cancer Brother Pancreatic cancer Daughter In good health Maternal Uncle Myocardial infarction Maternal Aunt CHF (congestive heart failure) Social History Household Members: Spouse and Children Housing: Apartment Are you a primary lawn care professional to a significant other at home: No Do you presently have visiting nurse or other home services: No Alcohol intake: current Alcohol intake frequency: holidays/special occasions only Alcohol type: wine Patient Tobacco Use Status: Never used Tobacco e-Cigarette/Vaping Use: Never Used Second Hand Smoke Exposure: No service: No Current occupational status: unemployed 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 Harsh Levy, Jacqueline Renee, Fransisco Granger and colleagues, with an educational valery from [employer]. Physical exam (Primary Care) Vital Signs: Last Vital Signs BP 122/72 09/17/23 10:06 BMI result Body Mass Index 27.1 Tobacco/Smoking Status: Tobacco use Status Tobacco use date assessed 09/17/23 09/17/23 10:13 Patient Tobacco Use Status Never used Tobacco 09/17/23 10:13 e-Cigarette/Vaping Use Never Used 09/17/23 10:13 Thrive Assessment: Date of Thrive Assessment Date Thrive assessed 12/27/22 09/17/23 10:13 Const General: cooperative and healthy appearing Nutritional Appearance: well nourished Orientation/consciousness: patient oriented x3 Limitations: no limitations HENMT Head: Yes normal to inspection Eyes General: appearance normal, both eyes and all related structures Neck Neck: Yes normal visual inspection Chest Chest palpation & inspection: normal palpation of entire chest wall Resp Effort & Inspection: normal respiratory effort Neuro General: patient oriented x3 Assessment and Plan Assessment & Plan (1) Depression: Code(s): F32.A - Depression, unspecified Plan: Patient does not have any psychotic symptoms now. She has an appointment with a psychiatrist. Encouraged her to keep it. Medications: Changed From fluticasone propionate 50 mcg/actuation 2 sprays intranasal DAILY 48 mL 3RF To fluticasone propionate 50 mcg/actuation 2 sprays intranasal DAILY 48 mL 3RF From albuterol sulfate 90 mcg/actuation 2 puffs PO Q6H PRN 8.5 grams 2RF Wheezing J45.909 - Unspecified asthma, uncomplicated To albuterol sulfate 90 mcg/actuation 2 puffs PO Q6H PRN 8.5 grams 2RF Wheezing J45.909 - Unspecified asthma, uncomplicated Refilled hydroxyzine HCl 25 mg PO BID PRN 14 tabs 0RF anxietyu F41.1 - Generalized anxiety disorder Coding Level of Care Code Est Pt Level 4 (85290) Diagnoses Depression F32.A
[2023-09-17 10:06] VITALS: BP 122/72; BMI 27.1
== END 2023-09-17 10:52 | disposition home or self-care (01) ==
PROVIDERS: PCP Internal Medicine; Visit Provider Internal Medicine
DX: F32.A Depression, unspecified (principal)
CPT/HCPCS: 99214

== ENCOUNTER 2023-10-22 13:50 | Outpatient (AMB) | payer OTHER, SELFPAY ==
--- NOTE | 2023-10-22 14:12 | HO.NEPHOV_ITS ---
HPI HPI Comments History of Present Illness Details I had the privilege of seeing Marlen in follow-up of her acquired solitary kidney and a renal cyst. 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 She does not have any hematuria, night sweats, urinary symptoms, nausea, vomiting, diarrhea, chest pain, shortness of breath, proximal nocturnal dyspnea or orthopnea. She does not have any pedal edema. Her blood pressure has been at goal. She has no protein or blood in the urine. Her renal functions had been stable. She recently had hospitalization for hallucinations. Currently she does not have any systemic complaints. She does not take any nonsteroidal anti-inflammatory medications and tries to keep herself well hydrated. [facility] Medical History (Updated 10/22/23 @ 14:42 by Srinivas Pinto MD) De Quervain's disease (radial styloid tenosynovitis) Hypercholesterolemia History of colon polyps Peroneal tendon rupture Abdominal wall hernia History of pulmonary embolism Wilms' tumor Insomnia Dysplasia of cervix, low grade (REGINE 1) GERD (gastroesophageal reflux disease) Tubular adenoma of colon Obesity (BMI 30-39.9) Asthma Irritable bowel syndrome MARIO positive Surgical History History of esophagogastroduodenoscopy (EGD) Hx of breast biopsy History of cystoscopy Hx of colonoscopy S/P peroneal tendon repair History of nephrectomy Hx of breast reduction, elective Hx of tonsillectomy History of abdominal hysterectomy Family History Father Diabetes Chronic mental illness Mental health disorder Mother Hypertension CVD (cardiovascular disease) Cancer Maternal Grandfather Breast cancer Paternal Grandmother Breast cancer Paternal Aunt Breast cancer Brother Pancreatic cancer Daughter In good health Maternal Uncle Myocardial infarction Maternal Aunt CHF (congestive heart failure) Social History Household Members: Spouse and Children Housing: Apartment Are you a primary rn complex care to a significant other at home: No Do you presently have visiting nurse or other home services: No Alcohol intake: current Alcohol intake frequency: holidays/special occasions only Alcohol type: wine Patient Tobacco Use Status: Never used Tobacco e-Cigarette/Vaping Use: Never Used Second Hand Smoke Exposure: No service: No Current occupational status: unemployed 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 Sexual orientation: Straight/Heterosexual Gender identity: Female Cognitive needs: No Hearing needs: No Vision needs: No Female Reproductive History Menstrual Age of Menarche: 10 Vital Signs 10/22/23 14:14 Height 5 ft 2 in Weight 147 lb 6 oz BMI 27.0 BP 130/80 Blood Pressure Location Lt brachial Position Sitting Pulse 69 Pulse Source Pulse Oximeter Physical Exam Vital Signs: Last Vital Signs Pulse 69 10/22/23 14:14 BP 130/80 10/22/23 14:14 BMI result Body Mass Index 27.0 Const General: comfortable and no acute distress Orientation/consciousness: patient oriented x3 HEENT Head: Yes normocephalic Mouth: Normal oral and palatal mucosa present Eyes EOM: EOMs intact bilaterally Neck Neck: Yes supple Resp Auscultation: clear to auscultation bilaterally Cardio Jugular venous distension: no JVD Rate: regular rate GI Palpation (GI): Soft to palpation Auscultation: normal bowel sounds General: Yes no CVA tenderness Back/Spine/Pelvis Back: no CVA tenderness Skin General skin exam: no rashes or lesions noted Neuro General: patient oriented x3 and moves all extremities Extrem General: Yes no pedal edema Assessment & Plan Assessment & Plan (1) Solitary kidney, acquired: Code(s): Z90.5 - Acquired absence of kidney Plan 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 Her renal functions are at baseline. She does not have blood or protein in the urine. Her blood pressure is at goal. Her volume status is optimal. She needs to lose weight. She needs to hydrate herself well and avoid nonsteroidal anti-inflammatory medications. Her last renal imaging studies were unremarkable. I did not make any medication changes today. All her and her 's questions were answered. Follow-up laboratory workup ordered. Time spent retrieving data, documentation and patient encounter 24 minutes. Follow-up given. Orders: Orders Electrolytes 11 Months Z90.5 - Acquired absence of kidney Blood Urea Nitrogen 11 Months Z90.5 - Acquired absence of kidney Creatinine 11 Months Z90.5 - Acquired absence of kidney Calcium 11 Months Z90.5 - Acquired absence of kidney UA and rflx microscopic 11 Months Z90.5 - Acquired absence of kidney Protein Creatinine Ratio, Ur 11 Months Z90.5 - Acquired absence of kidney Coding Level of Care Code Est Pt Level 3 (80104) Diagnoses Solitary kidney, acquired Z90.5
[2023-10-22 14:14] VITALS: BP 130/80; PULSE 69; BMI 27.0
== END 2023-10-22 14:44 | disposition home or self-care (01) ==
PROVIDERS: PCP Internal Medicine; Visit Provider Internal Medicine Nephrology
DX: Z90.5 Acquired absence of kidney (principal)
CPT/HCPCS: 99213

== ENCOUNTER → 2023-10-22 13:50 | Outpatient (BNVA) | payer OTHER, SELFPAY | PROVIDERS: PCP Internal Medicine; Visit Provider Internal Medicine Nephrology ==

== ENCOUNTER 2023-12-04 13:02 | Outpatient (AMB) | payer OTHER, SELFPAY ==
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
[2023-12-04 13:11] VITALS: BP 124/72; BMI 26.2
== END 2023-12-04 14:04 | disposition home or self-care (01) ==
PROVIDERS: PCP Internal Medicine; Visit Provider Nurse Practitioner Family
DX: R41.89 Other symptoms and signs involving cognitive functions and awareness (principal); R44.3 Hallucinations, unspecified
CPT/HCPCS: 99204

== ENCOUNTER → 2023-12-04 13:02 | Outpatient (BNVA) | payer OTHER, SELFPAY | PROVIDERS: PCP Internal Medicine; Visit Provider Nurse Practitioner Family ==

== ENCOUNTER 2023-12-26 06:14 | Outpatient (REF) | payer OTHER, SELFPAY ==
--- NOTE | 2023-12-26 06:27 | EEG_ITS ---
This is a 16-channel EEG with an EKG lead. The patient is reported awake and drowsy during the tracing. Background EEG rhythm is mostly medium amplitude theta range with intermittent right hemispheric sharp and slow wave complexes. Photic stimulation does not produce any significant abnormality. Hyperventilation is not performed. Cardiac lead does not reveal any significant abnormality. IMPRESSION: Abnormal EEG suggestive of right hemispheric seizure focus, which could result in partial and complex partial seizure disorder. MD MIRYAM Shepherd/DENZEL / [phone]
== END 2023-12-26 06:15 | disposition home or self-care (01) ==
LOC: HO.NEURO 06:14
PROVIDERS: PCP Internal Medicine; Visit Provider Nurse Practitioner Family
DX: R41.89 Other symptoms and signs involving cognitive functions and awareness (principal)
CPT/HCPCS: 95819

== ENCOUNTER 2024-01-05 11:23 | Outpatient (REF) | payer OTHER, SELFPAY ==
--- NOTE | ~2024-01-05 | MM_ITS ---
EXAMINATION: MM SCREENING DIGITAL BREAST TOMOSYNTHESIS, BILATERAL CLINICAL INFORMATION: Screening. Asymptomatic. Patient is status post bilateral breast reduction surgery. COMPARISON: Mammography: This study is compared with prior exams dating back to 2018. TECHNIQUE: Digital breast tomosynthesis is performed in both the craniocaudal and mediolateral oblique views along with computer-aided detection (CAD). Synthesized 2D images are generated from the tomosynthesis. FINDINGS: There are scattered areas of fibroglandular density (ACR BI-RADS breast composition Category b). There are no significant masses, abnormal calcifications, or other abnormalities. There is a tissue marker in the medial aspect of the right breast from prior benign stereotactic biopsy. Few, benign residual calcifications remain in close association with the tissue marker in the deep third of the right breast. There are minor post reduction changes in each breast. MM/MM tomosynthesis screening BI IMPRESSION: No mammographic evidence of malignancy. ASSESSMENT: BI-RADS BI-RADS 2 - Benign Findings RECOMMENDATION: Routine annual mammography screening. 1 year F/U This examination should not preclude the clinical evaluation of a suspicious palpable abnormality. This patient's information was entered into a reminder system with a target due date for their next mammogram.
== END 2024-01-05 11:24 | disposition home or self-care (01) ==
LOC: HO.MAMMO 11:23
PROVIDERS: PCP Internal Medicine; Visit Provider Internal Medicine
DX: Z12.31 Encounter for screening mammogram for malignant neoplasm of breast (principal)
CPT/HCPCS: 77063; 77067

== ENCOUNTER → 2024-01-05 11:30 | Outpatient (BNV) | payer OTHER, SELFPAY | PROVIDERS: PCP Internal Medicine; Visit Provider Radiology Diagnostic Radiology | DX: Z12.31 Encounter for screening mammogram for malignant neoplasm of breast (principal) | CPT/HCPCS: 77063; 77067 ==

== ENCOUNTER 2024-01-08 09:57 | Outpatient (AMB) | payer OTHER, SELFPAY ==
[2024-01-08 10:08] VITALS: BP 130/68; PULSE 71; O2SAT 98; BMI 26.0
--- NOTE | 2024-01-08 10:08 | A.OFFPC_ITS ---
Vital Signs 01/08/24 10:08 Height 5 ft 2 in Weight 142 lb BMI 26.0 BP 130/68 Blood Pressure Location Lt brachial Position Sitting Pulse 71 Pulse Source Pulse Oximeter Pulse Oximetry (%) 98 Oxygen Delivery Method Room Air Intake Visit Reasons: Annual Exam Allergies No Known Allergies Allergy (Verified 01/08/24 10:08) Medication List - Last Reconciled 01/08/24 by Danitza Headley MD acetaminophen ER (Tylenol Arthritis Pain) 650 mg PO Q8H albuterol sulfate 90 mcg/actuation 2 puffs PO Q6H PRN alprazolam mg PO aripiprazole 15 mg PO DAILY budesonide-formoterol 160-4.5 mcg/actuation (Symbicort) 2 puffs inhalation Q12H fluticasone propionate 50 mcg/actuation 2 sprays intranasal DAILY multivitamin 1 tab PO DAILY quetiapine 25 mg PO BEDTIME sertraline 25 mg PO DAILY Tobacco use date assessed: 01/08/24 Dental Screening Dental Screen Date: 01/08/24 Did you have a dental visit in the last 12 months?: Yes Did you have a dental problem in the last 6 months where you did not have access to dental care?: No Was dental information given to patient?: Patient has dentist HPI Annual Exam HPI Details 53-year-old overweight female with a his tory of solitary kidney, generalized anxiety disorder impaired glucose tolerance hypercholesterolemia and GERD coming in for physical exam last seen July 2023. Patient's mammogram is due this month colonoscopy is up-to-date December 2022. Review of the notes had an EEG done showing/suggestive of right hemispheric seizure focus which could result in partial/complex partial seizure. This workup was done due to concerns about hallucinations and memory problems patient has schizophrenia issues. Noted MMSE score of 15. Patient also follows up with Nephrology history of nephrolithiasis stoma years old had nephrectomy. MRI planned February 03, 2024 [facility] Medical History (Updated 01/08/24 @ 10:46 by Danitza Headley MD) Obesity (BMI 30-39.9) De Quervain's disease (radial styloid tenosynovitis) Hypercholesterolemia History of colon polyps Peroneal tendon rupture Abdominal wall hernia History of pulmonary embolism Wilms' tumor Insomnia Dysplasia of cervix, low grade (REGINE 1) GERD (gastroesophageal reflux disease) Tubular adenoma of colon Asthma Irritable bowel syndrome MARIO positive Surgical History History of esophagogastroduodenoscopy (EGD) Hx of breast biopsy History of cystoscopy Hx of colonoscopy S/P peroneal tendon repair History of nephrectomy Hx of breast reduction, elective Hx of tonsillectomy History of abdominal hysterectomy Family History Father Diabetes Chronic mental illness Mental health disorder Mother Hypertension CVD (cardiovascular disease) Cancer Maternal Grandfather Breast cancer Paternal Grandmother Breast cancer Paternal Aunt Breast cancer Brother Pancreatic cancer Daughter In good health Maternal Uncle Myocardial infarction Maternal Aunt CHF (congestive heart failure) Social History (Updated 01/08/24 @ 10:55 by Danitza Headley MD) Household Members: Spouse and Children Housing: Apartment Are you a primary respiratory care specialist to a significant other at home: No Do you presently have visiting nurse or other home services: No Alcohol intake: current Alcohol intake frequency: holidays/special occasions only Alcohol type: wine Comment: glass 1-2 x a week Patient Tobacco Use Status: Never used Tobacco e-Cigarette/Vaping Use: Never Used Second Hand Smoke Exposure: No service: No Current occupational status: unemployed 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 1. Little interest or pleasure in doing things: more than half the days 2. Feeling down, depressed, or hopeless: nearly every day 3. Trouble falling or staying asleep, or sleeping too much: not at all 4. Feeling tired or having little energy: nearly every day 5. Poor appetite or overeating: more than half the days 6. Feeling bad about yourself - or that you are a failure or have let yourself or your family down: nearly every day 7. Trouble concentrating on things, such as reading the newspaper or watching television: more than half the days 8. Moving or speaking so slowly that other people could have noticed. Or the opposite - being so fidgety or restless that you have been moving around a lot more than usual: several days 9. Thoughts that you would be better off or of hurting yourself in some way: not at all Total score: 16 Depression Screening Interpretation: Positive Depression Screening Done: Yes 18598 - PHQ-9 Billing: Yes Source: Developed by Drs. Harsh Levy, Jacqueline Renee, Fransisco Granger and colleagues, with an educational valery from [employer]. Thrive Questionnaire Date Thrive assessed: 01/08/24 I am a: Patient What is your living situation today?: I have a steady place to live Within the past 12 months, did the food you bought not last and you didn't have the money to get more?: Never true Within the past 12 months, did you worry whether your food would run out before you got money to buy more?: Never true Do you have trouble paying for medicines?: No Do you have trouble getting transportation to medical appointments?: No Do you have trouble paying your heating and electricity bill?: No Do you have trouble taking care of your child, family member or friend?: No Do you have trouble with day-to-day activities such as bathing, preparing meals, shopping, managing finances, etc.?: No Are you currently unemployed and looking for a job?: No Are you interested in more education?: No Currently or been in a relationship where the following occur: no concerns reported THRIVE Score: 0 AUDIT C Alcohol Use Questionnaire (AUDIT-C) 1. How often do you have a drink containing alcohol?: Monthly or less 2. How many drinks containing alcohol do you have on a typical day when you are drinking?: 1 or 2 3. How often do you have six or more drinks on one occasion?: Never Total Score: 1 Score Reviewed/Action Taken: No MARY JO-7 AMB Questionnaire MARY JO-7 Date MARY JO - 7 assessed: 01/08/24 Feeling nervous, anxious, or on edge: 2 = More than half the days Not being able to stop or control worryin = More than half the days Worrying too much about different things: 2 = More than half the days Trouble relaxin = Several days Being so restless that it is hard to sit still: 1 = Several days Becoming easily annoyed or irritable: 0 = Not at all Feeling afraid as if something awful might happen: 2 = More than half the days Total MARY JO-7 score (0-4 normal; 5-9 mild; 10-14 moderate; 15-21 severe): 10 Source: Developed by Drs. Harsh Levy, Jacqueline Renee, Fransisco Granger and colleagues, with an educational valery from [employer]. Review of Systems Const Denies poor appetite and Denies weakness Eyes Denies no additional complaints ENT Reports Normal hearing present, Denies dizziness, Denies nasal congestion, Denies tinnitus and Denies sore throat Card Denies chest pain, Denies syncope, Denies rapid heart rate and Denies dyspnea Resp Denies cough and Denies dyspnea GI Denies change in stool character, Reports constipation, Denies diarrhea, Denies nausea and Denies vomiting Denies urinary frequency, Denies difficulty voiding and Denies dysuria Neuro Reports Normal hearing present, Denies confusion, Denies dizziness, Denies syncope and Denies weakness Psych Denies confusion Physical exam (Primary Care) Vital Signs: Last Vital Signs Pulse 71 01/08/24 10:08 BP 130/68 01/08/24 10:08 Pulse Ox 98 01/08/24 10:08 Oxygen Delivery Method Room Air 01/08/24 10:08 BMI result Body Mass Index 26.0 Tobacco/Smoking Status: Tobacco use Status Tobacco use date assessed 01/08/24 01/08/24 10:11 Patient Tobacco Use Status Never used Tobacco 01/08/24 10:11 e-Cigarette/Vaping Use Never Used 01/08/24 10:11 PHQ-9: PHQ-9 Score PHQ-9: Total score 16 01/08/24 10:27 Depression Screening Interpretation: Positive Thrive Assessment: Date of Thrive Assessment Date Thrive assessed 01/08/24 01/08/24 10:11 Currently or been in a relationship where the following occur: no concerns reported Const General: No confusion Orientation/consciousness: No confusion HENMT Head: Yes normocephalic Ears: external ears normal and TM's normal bilaterally Face and sinus: Yes normal facial exam Mouth: moist mucous membranes Throat: Yes tonsils normal Eyes Conjunctivae: conjunctivae normal Pupils: Equal, round and reactive pupils present and Pupil accommodation reflex normal Direct Ophthalmoscopy: normal light reflex Neck Neck: No lymphadenopathy Thyroid: Thyroid normal Chest Chest palpation & inspection: normal inspection of the chest Resp Effort & Inspection: normal respiratory effort and no audible wheezes Auscultation: clear to auscultation bilaterally, no crackles, no wheezes and lung sounds not diminished Cardio Rate: regular rate Rhythm: regular rhythm Peripheral pulses: radial pulses present and dorsalis pedis present GI Palpation (GI): no masses Auscultation: normal bowel sounds and normoactive bowel sounds Rectal Exam - Female: deferred Skin General skin exam: no rashes or lesions noted Rashes: no rashes Neuro General: No confusion Cranial nerves: Yes Equal, round and reactive pupils present and Yes Normal hearing present Cognition (Neuro): normal cognition Gait exam (Neuro): Normal gait present Motor exam (neuro): 5/5 motor strength present throughout Deep tendon reflexes (DTR's): Right brachioradialis reflex intensity grade: 2+, Left brachioradialis reflex intensity grade: 2+, Right patellar reflex intensity grade: 2+ and Left patellar reflex intensity grade: 2+ Extrem General: No edema Assessment and Plan Assessment & Plan (1) Annual physical exam: Code(s): Z00.00 - Encounter for general adult medical examination without abnormal findings (2) Asthma: Comment: Stable Code(s): J45.909 - Unspecified asthma, uncomplicated Qualifiers: Asthma severity: mild Asthma persistence: intermittent Asthma complication type: uncomplicated Qualified Code(s): J45.20 - Mild intermittent asthma, uncomplicated Plan: Continue with the inhaler as needed on Symbicort (3) GERD (gastroesophageal reflux disease): Code(s): K21.9 - Gastro-esophageal reflux disease without esophagitis Qualifiers: Esophagitis presence: without esophagitis Qualified Code(s): K21.9 - Gastro-esophageal reflux disease without esophagitis Plan: Avoid the foods that causes that usually spicy foods, tomato products, juices, coffee, soda and foods that your sensitive to. After eating do not lie down, allow 3-4 hours before in lie down. And keep the head of bed above 30 degrees to avoid the acid from going up. (4) Generalized anxiety disorder: Code(s): F41.1 - Generalized anxiety disorder Plan: Continue with present medication (5) Impaired glucose tolerance: Code(s): R73.02 - Impaired glucose tolerance (oral) Plan: Decrease the amount of carbohydrate intake, pasta, bread, rice and potatoes are all sugar and that is aside from all the sweet stuff, remember that fruits are good but they are Sweet also. (6) Hypercholesterolemia: Code(s): E78.00 - Pure hypercholesterolemia, unspecified Plan: Avoid fried foods, chicken skin, eggs, butter margarine, pastries and meat. 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 Renal function is stable (8) Cognitive impairment: Code(s): R41.89 - Other symptoms and signs involving cognitive functions and awareness Plan: Patient has met with Neurology and workup presently underway. Had an EEG done showing abnormal EEG seizure focus. Coding Level of Care Code Est Pt Prev Care 40-64y(98021) Diagnoses Annual physical exam Z00.00 Mild intermittent asthma without complication J45.20 Asthma severity: mild Asthma persistence: intermittent Asthma complication type: uncomplicated Gastroesophageal reflux disease without esophagitis K21.9 Esophagitis presence: without esophagitis Generalized anxiety disorder F41.1 Impaired glucose tolerance R73.02 Hypercholesterolemia E78.00 Solitary kidney, acquired Z90.5 Cognitive impairment R41.89
== END 2024-01-08 11:09 | disposition home or self-care (01) ==
PROVIDERS: PCP Internal Medicine; Visit Provider Internal Medicine
DX: Z00.00 Encounter for general adult medical examination without abnormal findings (principal); J45.20 Mild intermittent asthma, uncomplicated; K21.9 Gastro-esophageal reflux disease without esophagitis; F41.1 Generalized anxiety disorder; R73.02 Impaired glucose tolerance (oral); E78.00 Pure hypercholesterolemia, unspecified; Z90.5 Acquired absence of kidney; R41.89 Other symptoms and signs involving cognitive functions and awareness
CPT/HCPCS: 99396

== ENCOUNTER 2024-02-04 09:23 | Outpatient (REF) | payer OTHER, SELFPAY ==
--- NOTE | ~2024-02-04 | MR_ITS ---
EXAMINATION: MR BRAIN WITH AND WITHOUT CONTRAST CLINICAL INFORMATION: Abnormal EEG suggestive of right hemispheric seizure focus COMPARISON: None. TECHNIQUE: MRI of the brain was obtained using routine sequences before and following administration of intravenous contrast. A total of 6.5 mL of Gadavist was administered intravenously. FINDINGS: Dedicated coronal oblique imaging through the temporal lobes reveal symmetric appearance of the bilateral hippocampi with normal morphology and signal intensity. No evidence of mesial temporal sclerosis. No identifiable malformation of cortical development. No acute infarct. The GRE sequence is without susceptibility artifact to suggest acute or chronic blood products. No extra-axial fluid collection. Mild global cerebral volume loss. Left cerebellar developmental venous anomaly. No significant mass effect or herniation pattern. The intracranial dural venous sinus and arterial flow voids are preserved. Minimally low-lying cerebellar tonsils terminating just below the foramen magnum. The orbits are grossly unremarkable. The paranasal sinuses and mastoids are well aerated. Normal marrow signal. MR/MR head/brain wo/w con IMPRESSION: No structural epileptogenic lesion identified within limitations of a 1.5 [facility] examination. No hippocampal pathology. Mild global cerebral volume loss.
[2024-02-04] MEDS: gadobutroL 7.5 ML VIAL IVPUSH (10:24)
== END 2024-02-04 09:24 | disposition home or self-care (01) ==
LOC: HO.MRI 09:23
PROVIDERS: PCP Internal Medicine; Visit Provider Nurse Practitioner Family
DX: R41.89 Other symptoms and signs involving cognitive functions and awareness (principal); R94.01 Abnormal electroencephalogram [EEG]
CPT/HCPCS: 70553; A9585

== ENCOUNTER 2024-02-10 15:00 | Outpatient (AMB) | payer OTHER, SELFPAY ==
--- NOTE | 2024-02-10 15:03 | MHC.OFFVIS ---
Vital Signs 02/10/24 15:10 Height 5 ft 2 in Weight 140 lb 4 oz BMI 25.6 BP 132/80 Blood Pressure Location Lt brachial Position Sitting Pulse 66 Pulse Source Pulse Oximeter Pulse Oximetry (%) 96 Oxygen Delivery Method Room Air Intake Visit Reasons: 2m memory loss and EEG - LVM w/address Intake Note: Patient presents 2 months f/u. Allergies No Known Allergies Allergy (Verified 01/08/24 10:08) HPI Comments Details: 53 y/o female patient presents for follow up of hallucination and cognitive impairment. Brain MRI result reviewed. No structural epileptogenic lesion identified within limitations of a 1.5 [facility] examination. No hippocampal pathology. Mild global cerebral volume loss. EEG result was Abnormal EEG suggestive of right hemispheric seizure focus, which could result in partial and complex partial seizure disorder. PET scan of brain ordered, but not done yet. Pt's states that patient has hard time figuring out the dressing, needs help for. She can take a shower herself and brush her teeth. She is on aripirazole, and seroquel, she is doing much better, no visual or auditory hallucination. She trying to keep writing journal for daily tasks and activities, but having difficulty keeping it. [facility] Medical History (Updated 03/15/24 @ 15:13 by Ethan Alvarez CNP) Obesity (BMI 30-39.9) De Quervain's disease (radial styloid tenosynovitis) Hypercholesterolemia History of colon polyps Peroneal tendon rupture Abdominal wall hernia History of pulmonary embolism Wilms' tumor Insomnia Dysplasia of cervix, low grade (REGINE 1) GERD (gastroesophageal reflux disease) Tubular adenoma of colon Asthma Irritable bowel syndrome MARIO positive Surgical History History of esophagogastroduodenoscopy (EGD) Hx of breast biopsy History of cystoscopy Hx of colonoscopy S/P peroneal tendon repair History of nephrectomy Hx of breast reduction, elective Hx of tonsillectomy History of abdominal hysterectomy Family History Father Diabetes Chronic mental illness Mental health disorder Mother Hypertension CVD (cardiovascular disease) Cancer Maternal Grandfather Breast cancer Paternal Grandmother Breast cancer Paternal Aunt Breast cancer Brother Pancreatic cancer Daughter In good health Maternal Uncle Myocardial infarction Maternal Aunt CHF (congestive heart failure) Social History Household Members: Spouse and Children Housing: Apartment Are you a primary career technology teacher to a significant other at home: No Do you presently have visiting nurse or other home services: No Alcohol intake: current Alcohol intake frequency: holidays/special occasions only Alcohol type: wine Comment: glass 1-2 x a week Patient Tobacco Use Status: Never used Tobacco e-Cigarette/Vaping Use: Never Used Second Hand Smoke Exposure: No service: No Current occupational status: unemployed 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 Sexual orientation: Straight/Heterosexual Gender identity: Female Cognitive needs: No Hearing needs: No Vision needs: Yes Female Reproductive History Menstrual Age of Menarche: 10 Physical Exam Vital Signs: Last Vital Signs Pulse 66 02/10/24 15:10 BP 132/80 02/10/24 15:10 Pulse Ox 96 02/10/24 15:10 Oxygen Delivery Method Room Air 02/10/24 15:10 BMI result Body Mass Index 25.6 Assessment & Plan Assessment & Plan (1) Cognitive impairment: Code(s): R41.89 - Other symptoms and signs involving cognitive functions and awareness Category: Medical (2) Hallucination: Code(s): R44.3 - Hallucinations, unspecified Category: Medical (3) Partial seizure: Code(s): R56.9 - Unspecified convulsions Category: Medical Plan Start trileptal 300 mg daily for a week and then increased to 300 mg BID. Continue to take abilify 15 mg daily and quetiapine 25 mg daily to manage hallucination. Continue to participate in physical, social and cognitive activities. Medications: New oxcarbazepine (Trileptal) 300 mg PO BID 60 tabs 1RF 30 days
[2024-02-10 15:10] VITALS: BP 132/80; PULSE 66; O2SAT 96; BMI 25.6
== END 2024-02-10 15:30 | disposition home or self-care (01) ==
PROVIDERS: PCP Internal Medicine; Visit Provider Nurse Practitioner Family
DX: R41.89 Other symptoms and signs involving cognitive functions and awareness (principal); R44.3 Hallucinations, unspecified; R56.9 Unspecified convulsions
CPT/HCPCS: 99214

== ENCOUNTER → 2024-02-10 15:00 | Outpatient (BNVA) | payer OTHER, SELFPAY | PROVIDERS: PCP Internal Medicine; Visit Provider Nurse Practitioner Family ==

== ENCOUNTER 2024-03-24 08:29 | Outpatient (REF) | payer OTHER, SELFPAY | END 2024-03-24 08:30 | disposition home or self-care (01) | LOC: HO.HKASLDS 08:29 | PROVIDERS: PCP Internal Medicine; Visit Provider Nurse Practitioner Family | DX: Z13.89 Encounter for screening for other disorder (principal) ==

== ENCOUNTER 2024-03-24 08:29 | Outpatient (AMB) | payer OTHER, SELFPAY ==
--- NOTE | 2024-03-24 08:35 | MHC.OFFVIS ---
Vital Signs 03/24/24 08:41 Height 5 ft 2 in Weight 142 lb 6 oz BMI 26.0 BP 134/80 Blood Pressure Location Lt brachial Position Sitting Pulse 75 Pulse Source Pulse Oximeter Pulse Oximetry (%) 95 Oxygen Delivery Method Room Air Intake Visit Reasons: 2m memory loss and EEG - LVM w/address Intake Note: Patient presents for 2 months f/u. Allergies No Known Allergies Allergy (Verified 03/24/24 08:40) HPI Comments Details: 53 y/o female patient presents with her for follow up of hallucination and cognitive impairment. Brain MRI result reviewed. No structural epileptogenic lesion identified within limitations of a 1.5 [facility] examination. No hippocampal pathology. Mild global cerebral volume loss. EEG result was Abnormal EEG suggestive of right hemispheric seizure focus, which could result in partial and complex partial seizure disorder. Pt started trileptal 300 mg BID. PET scan of brain ordered, but not done yet. Pt's states that patient is more confused, has hard time figuring out the dressing, needs help for. She is forgetting her name, too. She is physically active, but need assistance for ADLs. She is on aripirazole, and seroquel, she is doing much better, no visual or auditory hallucination. Pt was [facility] to [facility] for hallucination last year, and started abilify and seroquel. She is followed by psychiatrist. Pt has family hx of Alzheimer, her father and her sister, they all had early onset of Alzheimer. [facility] Medical History (Updated 03/15/24 @ 15:13 by Ethan Alvarez CNP) Obesity (BMI 30-39.9) De Quervain's disease (radial styloid tenosynovitis) Hypercholesterolemia History of colon polyps Peroneal tendon rupture Abdominal wall hernia History of pulmonary embolism Wilms' tumor Insomnia Dysplasia of cervix, low grade (REGINE 1) GERD (gastroesophageal reflux disease) Tubular adenoma of colon Asthma Irritable bowel syndrome MARIO positive Surgical History History of esophagogastroduodenoscopy (EGD) Hx of breast biopsy History of cystoscopy Hx of colonoscopy S/P peroneal tendon repair History of nephrectomy Hx of breast reduction, elective Hx of tonsillectomy History of abdominal hysterectomy Family History Father Diabetes Chronic mental illness Mental health disorder Mother Hypertension CVD (cardiovascular disease) Cancer Maternal Grandfather Breast cancer Paternal Grandmother Breast cancer Paternal Aunt Breast cancer Brother Pancreatic cancer Daughter In good health Maternal Uncle Myocardial infarction Maternal Aunt CHF (congestive heart failure) Social History Household Members: Spouse and Children Housing: Apartment Are you a primary healthcare network consultant to a significant other at home: No Do you presently have visiting nurse or other home services: No Alcohol intake: current Alcohol intake frequency: holidays/special occasions only Alcohol type: wine Comment: glass 1-2 x a week Patient Tobacco Use Status: Never used Tobacco e-Cigarette/Vaping Use: Never Used Second Hand Smoke Exposure: No service: No Current occupational status: unemployed 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 Sexual orientation: Straight/Heterosexual Gender identity: Female Cognitive needs: No Hearing needs: No Vision needs: Yes Female Reproductive History Menstrual Age of Menarche: 10 Review of Systems Const All systems reviewed & are unremarkable except as noted in HPI and below Physical Exam Vital Signs: Last Vital Signs Pulse 75 03/24/24 08:41 BP 134/80 03/24/24 08:41 Pulse Ox 95 03/24/24 08:41 Oxygen Delivery Method Room Air 03/24/24 08:41 BMI result Body Mass Index 26.0 Const General: cooperative Nutritional Appearance: overweight Orientation/consciousness: oriented to person Neck Neck: Yes full ROM and Yes supple Resp Effort & Inspection: normal respiratory effort and able to speak in complete sentences Neuro General: oriented to person Cranial nerves: Yes CN's II-XII intact bilaterally Gait exam (Neuro): Normal gait present Motor exam (neuro): 5/5 motor strength present throughout, Pronator motor function not present and no tremor noted Deep tendon reflexes (DTR's): Rt Biceps (C5, C6): 2+, Left biceps reflex intensity grade: 2+, Right brachioradialis reflex intensity grade: 2+, Left brachioradialis reflex intensity grade: 2+, Right patellar reflex intensity grade: 2+ and Left patellar reflex intensity grade: 2+ Coordination: [id number] test normal Psych Appearance: grossly normal Mental Status: mental status grossly normal Speech and movement: Normal speech and movement present Affect: normal affect Attitude: cooperative Assessment & Plan Assessment & Plan (1) Cognitive impairment: Code(s): R41.89 - Other symptoms and signs involving cognitive functions and awareness Category: Medical (2) Hallucination: Code(s): R44.3 - Hallucinations, unspecified Category: Medical (3) Partial seizure: Code(s): R56.9 - Unspecified convulsions Category: Medical Plan Pt was evaluated and discussed the plan of care with Dr. Bhatt. Continue trileptal 300 mg BID. Advised patient to start donepezil, 5 mg daily for two weeks and then increase to 10 mg daily. Start memantine titraion when donepeizl 10 mg starts. Will consider lumbar puncture after PET scan done. Continue to take abilify 15 mg daily and quetiapine 25 mg daily to manage hallucination. Continue to participate in physical, social and cognitive activities. Orders: Orders Complete Blood Count Auto Diff Today R41.89 - Other symptoms and signs involving cognitive functions and awareness, R56.9 - Unspecified convulsions Comprehensive Met. Panel Today R41.89 - Other symptoms and signs involving cognitive functions and awareness, R56.9 - Unspecified convulsions Medications: New memantine 7 mg PO DAILY 14 days 14 ea 0RF memantine Start after finishing memantine 7 mg. 14 mg PO DAILY 14 days 14 ea 0RF memantine 28 mg PO DAILY 90 ea 1RF donepezil 5 mg daily for 2 weeks and then increase to 10 mg daily. 10 mg PO BEDTIME 90 days 90 tabs 1RF memantine Start after finishing memantine 14 mg. 21 mg PO DAILY 14 days 14 ea 0RF Coding Level of Care Code Est Pt Level 4 (98012) Diagnoses Cognitive impairment R41.89 Hallucination R44.3 Partial seizure R56.9
[2024-03-24 08:41] VITALS: BP 134/80; PULSE 75; O2SAT 95; BMI 26.0
== END 2024-03-24 09:17 | disposition home or self-care (01) ==
PROVIDERS: PCP Internal Medicine; Visit Provider Nurse Practitioner Family
DX: R41.89 Other symptoms and signs involving cognitive functions and awareness (principal); R44.3 Hallucinations, unspecified; R56.9 Unspecified convulsions
CPT/HCPCS: 99214

== ENCOUNTER 2024-03-24 09:25 | Outpatient (REF) | payer OTHER, SELFPAY ==
[2024-03-24 14:24] LABS: MANUAL DIFF FLAG NO
[2024-03-24 14:41] LABS: Basophils Absolute Auto 0.1 X10*3/uL (0.0-0.2); Eosinophils Absolute Auto 0.4 X10*3/uL (0.0-0.4); Hematocrit 37.3 % (37.0-47.0); Hemoglobin 12.4 g/dl (12.0-16.0); Imm Gran Abs Auto 0.01 X10*3/uL (0.00-0.03); Imm Gran Pct Auto 0.2 % (0.0-0.4); Lymphocytes Absolute Auto 1.9 X10*3/uL (1.2-4.9); Lymphocytes Percent Auto 32.1 % (20-40); Mean Corpuscular HGB Conc 33.2 g/dl (31.0-35.0); Mean Corpuscular Hemoglobin 29.9 pg (27.0-33.0); Mean Corpuscular Volume 89.9 fL (80.0-98.0); Mean Platelet Volume 11.3 fL (9.4-12.3); Monocytes Absolute Auto 0.4 X10*3/uL (0.1-1.2); Monocytes Percent Auto 6.5 % (2-11); Neutrophils Absolute Auto 3.3 x10*3/uL (2.0-8.3); Neutrophils Percent Auto 54.2 % (45-73); Platelet Count 262 X10*3/uL (160-400); Red Blood Count 4.15 X10*6/uL (4.20-5.50); Red Cell Distribution Width 13.2 % (11.0-16.0)
[2024-03-24 14:46] LABS: Estimated Average Glucose 114 mg/dL; Hemoglobin A1c % 5.6 % (<6.0)
[2024-03-24 15:38] LABS: Alanine Aminotransferase 15 U/L (0-31); Alkaline Phosphatase 85 U/L (39-117); Anion Gap 12 (12-20); Aspartate Amino Transferase 24 U/L (5-31); Bilirubin Total 0.3 mg/dL (0.0-1.0); Blood Urea Nitrogen 10 mg/dL (9-16); Calcium 9.6 mg/dL (8.4-10.2); Carbon Dioxide 27 mmol/L (22-29); Chloride 108 mmol/L (96-108); Cholesterol 234 mg/dL (<200); Estimated Glomerular Filt Rate > 60; Glucose Random 92 mg/dL (60-115); HDL Cholesterol 72 mg/dL (>40); LDL Cholesterol Calculated 150 mg/dL (<100); Potassium 3.9 mmol/L (3.3-5.1); Sodium 143 mmol/L (135-145); Triglycerides 62 mg/dL (<150)
[2024-03-24 15:45] LABS: Folate 13.3 ng/mL (> or = 4.0); Vitamin B12 1082 pg/mL (200-900)
[2024-03-24 15:46] LABS: Thyroid Stimulating Hormone 0.84 uIU/mL (0.32-4.0); Vitamin D 25-OH Total 37.6 ng/mL (>30)
== END 2024-03-24 09:26 | disposition home or self-care (01) ==
LOC: HO.MAMMO 09:25
PROVIDERS: PCP Internal Medicine; Visit Provider Internal Medicine
DX: R73.02 Impaired glucose tolerance (oral) (principal); E78.00 Pure hypercholesterolemia, unspecified
CPT/HCPCS: 36415; 80053; 80061; 82306; 82607; 82746; 83036; 84439; 84443; 85025

== ENCOUNTER 2024-04-15 09:24 | Outpatient (AMB) | payer OTHER, SELFPAY ==
--- NOTE | 2024-04-15 09:26 | MHC.PC.OV ---
Vital Signs 04/15/24 09:28 Height 5 ft 2 in Weight 139 lb BMI 25.4 BP 118/70 Blood Pressure Location Lt brachial Position Sitting Pulse 79 Pulse Source Pulse Oximeter Pulse Oximetry (%) 98 Oxygen Delivery Method Room Air Intake Visit Reasons: seizure, MARY JO Allergies No Known Allergies Allergy (Verified 04/15/24 09:28) Tobacco use date assessed: 01/08/24 Dental Screening Dental Screen Date: 01/08/24 HPI seizure, MARY JO HPI Details 53-year-old female with a history of asthma GERD generalized anxiety disorder impaired glucose tolerance hypercholesterolemia coming in for follow-up. Last seen for physical exam in December 2023. Patient's mammogram is up-to-date colonoscopy done in December 2022 advised 3 years. Patient has been having problems with memory and has been referred to Neurology MRI done negative but an EEG done showing right hemispheric seizure focus question of partial/complex partial seizure disorder started on Trileptal. PET scan has been ordered patient has been placed on Abilify and Seroquel which helps the hallucinations she is followed up by psychiatrist patient advised to continue with Trileptal 300 mg twice a day donepezil 10 mg once a day and recommended mountain titration patient was advised to have lumbar puncture as well as the PET scan [facility] Medical History (Updated 03/15/24 @ 15:13 by Ethan Alvarez CNP) Obesity (BMI 30-39.9) De Quervain's disease (radial styloid tenosynovitis) Hypercholesterolemia History of colon polyps Peroneal tendon rupture Abdominal wall hernia History of pulmonary embolism Wilms' tumor Insomnia Dysplasia of cervix, low grade (REGINE 1) GERD (gastroesophageal reflux disease) Tubular adenoma of colon Asthma Irritable bowel syndrome MARIO positive Surgical History History of esophagogastroduodenoscopy (EGD) Hx of breast biopsy History of cystoscopy Hx of colonoscopy S/P peroneal tendon repair History of nephrectomy Hx of breast reduction, elective Hx of tonsillectomy History of abdominal hysterectomy Family History Father Diabetes Chronic mental illness Mental health disorder Mother Hypertension CVD (cardiovascular disease) Cancer Maternal Grandfather Breast cancer Paternal Grandmother Breast cancer Paternal Aunt Breast cancer Brother Pancreatic cancer Daughter In good health Maternal Uncle Myocardial infarction Maternal Aunt CHF (congestive heart failure) Social History Household Members: Spouse and Children Housing: Apartment Are you a primary director of healthcare systems to a significant other at home: No Do you presently have visiting nurse or other home services: No Alcohol intake: current Alcohol intake frequency: holidays/special occasions only Alcohol type: wine Comment: glass 1-2 x a week Patient Tobacco Use Status: Never used Tobacco e-Cigarette/Vaping Use: Never Used Second Hand Smoke Exposure: No service: No Current occupational status: unemployed 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 1. Little interest or pleasure in doing things: more than half the days 2. Feeling down, depressed, or hopeless: nearly every day 3. Trouble falling or staying asleep, or sleeping too much: not at all 4. Feeling tired or having little energy: nearly every day 5. Poor appetite or overeating: more than half the days 6. Feeling bad about yourself - or that you are a failure or have let yourself or your family down: nearly every day 7. Trouble concentrating on things, such as reading the newspaper or watching television: more than half the days 8. Moving or speaking so slowly that other people could have noticed. Or the opposite - being so fidgety or restless that you have been moving around a lot more than usual: several days 9. Thoughts that you would be better off or of hurting yourself in some way: not at all Total score: 16 Depression Screening Interpretation: Positive Depression Screening Done: Yes 00276 - PHQ-9 Billing: Yes Source: Developed by Drs. Harsh Levy, Jacqueline Renee, Fransisco Granger and colleagues, with an educational valery from [employer]. Thrive Questionnaire Date Thrive assessed: 01/08/24 AUDIT C Alcohol Use Questionnaire (AUDIT-C) 1. How often do you have a drink containing alcohol?: Monthly or less 2. How many drinks containing alcohol do you have on a typical day when you are drinking?: 1 or 2 3. How often do you have six or more drinks on one occasion?: Never Total Score: 1 Score Reviewed/Action Taken: No MARY JO-7 AMB Questionnaire MARY JO-7 Date MARY JO - 7 assessed: 01/08/24 Source: Developed by Drs. Harsh Levy, Jacqueline Renee, Fransisco Granger and colleagues, with an educational valery from [employer]. Physical exam (Primary Care) Vital Signs: Last Vital Signs Pulse 79 04/15/24 09:28 BP 118/70 04/15/24 09:28 Pulse Ox 98 04/15/24 09:28 Oxygen Delivery Method Room Air 04/15/24 09:28 BMI result Body Mass Index 25.4 Tobacco/Smoking Status: Tobacco use Status Tobacco use date assessed 01/08/24 04/15/24 09:28 Patient Tobacco Use Status Never used Tobacco 04/15/24 09:28 e-Cigarette/Vaping Use Never Used 04/15/24 09:28 PHQ-9: PHQ-9 Score PHQ-9: Total score 16 04/15/24 09:33 Depression Screening Interpretation: Positive Thrive Assessment: Date of Thrive Assessment Date Thrive assessed 01/08/24 04/15/24 09:28 Const General: alert; No acute distress Eyes Conjunctivae: conjunctivae normal Resp Auscultation: clear to auscultation bilaterally Cardio Rate: regular rate Rhythm: regular rhythm GI Inspection: Yes normal to inspection Extrem General: Yes normal to inspection and No edema Assessment and Plan Assessment & Plan (1) Partial seizure: Code(s): R56.9 - Unspecified convulsions Plan: Patient presently on Trileptal. (2) Cognitive impairment: Code(s): R41.89 - Other symptoms and signs involving cognitive functions and awareness Plan: Patient has met with the neurologist and PET scan requested and is going to be done next week. Long discussion with the family regarding help at home as the patient has progressed on seeing in the office. Will get back with them as far as options for home care. Family is presently able to cope up but patient is not able to read not able to do any ADLs on her own. (3) GERD (gastroesophageal reflux disease): Code(s): K21.9 - Gastro-esophageal reflux disease without esophagitis Qualifiers: Esophagitis presence: without esophagitis Qualified Code(s): K21.9 - Gastro-esophageal reflux disease without esophagitis Plan: Avoid the foods that causes that usually spicy foods, tomato products, juices, coffee, soda and foods that your sensitive to. After eating do not lie down, allow 3-4 hours before in lie down. And keep the head of bed above 30 degrees to avoid the acid from going up. (4) Generalized anxiety disorder: Code(s): F41.1 - Generalized anxiety disorder Plan: Continue with follow-up with psychiatry on quetiapine and Abilify (5) Hypercholesterolemia: Code(s): E78.00 - Pure hypercholesterolemia, unspecified Plan: Avoid fried foods, chicken skin, eggs, butter margarine, pastries and meat. Be it pork or beef they have a lot of cholesterol Coding Level of Care Code Est Pt Level 4 (36685) Diagnoses Partial seizure R56.9 Cognitive impairment R41.89 Gastroesophageal reflux disease without esophagitis K21.9 Esophagitis presence: without esophagitis Generalized anxiety disorder F41.1 Hypercholesterolemia E78.00
[2024-04-15 09:28] VITALS: BP 118/70; PULSE 79; O2SAT 98; BMI 25.4
== END 2024-04-15 10:10 | disposition home or self-care (01) ==
PROVIDERS: PCP Internal Medicine; Visit Provider Internal Medicine
DX: R56.9 Unspecified convulsions (principal); R41.89 Other symptoms and signs involving cognitive functions and awareness; K21.9 Gastro-esophageal reflux disease without esophagitis; F41.1 Generalized anxiety disorder; E78.00 Pure hypercholesterolemia, unspecified
CPT/HCPCS: 99214

== ENCOUNTER 2024-06-23 09:25 | Outpatient (AMB) | payer OTHER, SELFPAY ==
[2024-06-23 09:39] VITALS: BP 112/70; BMI 24.5
--- NOTE | 2024-06-23 09:39 | A.OFFVIS_ITS ---
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 No complaints. Last Pap/HPV was negative in 02/12 Last Mammogram was BI-RADS 2 in 01/17 Last Colonoscopy was done in 01/16 [facility] Medical History Obesity (BMI 30-39.9) De Quervain's disease (radial styloid tenosynovitis) Hypercholesterolemia History of colon polyps Peroneal tendon rupture Abdominal wall hernia History of pulmonary embolism Wilms' tumor Insomnia Dysplasia of cervix, low grade (REGINE 1) GERD (gastroesophageal reflux disease) Tubular adenoma of colon Asthma Irritable bowel syndrome MARIO positive Surgical History History of esophagogastroduodenoscopy (EGD) Hx of breast biopsy History of cystoscopy Hx of colonoscopy S/P peroneal tendon repair History of nephrectomy Hx of breast reduction, elective Hx of tonsillectomy History of abdominal hysterectomy Family History Father Diabetes Chronic mental illness Mental health disorder Mother Hypertension CVD (cardiovascular disease) Cancer Maternal Grandfather Breast cancer Paternal Grandmother Breast cancer Paternal Aunt Breast cancer Brother Pancreatic cancer Daughter In good health Maternal Uncle Myocardial infarction Maternal Aunt CHF (congestive heart failure) Social History Household Members: Spouse and Children Housing: Apartment Are you a primary career manager to a significant other at home: No Do you presently have visiting nurse or other home services: No Alcohol intake: current Alcohol intake frequency: holidays/special occasions only Alcohol type: wine Comment: glass 1-2 x a week Patient Tobacco Use Status: Never used Tobacco e-Cigarette/Vaping Use: Never Used Second Hand Smoke Exposure: No service: No Current occupational status: disabled Sexual orientation: Straight/Heterosexual Gender identity: Female Cognitive needs: No Hearing needs: No Vision needs: Yes Female Reproductive History Menstrual Age of Menarche: 10 Date of last pap smear: 02/05/22 Date of Mammogram: 01/05/24 Review of Systems Const All systems reviewed & are unremarkable except as noted in HPI and below Card Reports as per HPI and Reports no additional complaints Resp Reports as per HPI and Reports no additional complaints GI Reports as per HPI and Reports no additional complaints Reports as per HPI Physical Exam Const General: cooperative, healthy appearing and comfortable Chest Chest palpation & inspection: normal inspection of the chest Breast/axilla inspection: normal inspection of the breasts and normal inspection of the axillae Resp Effort & Inspection: normal respiratory effort Auscultation: clear to auscultation bilaterally Cardio Jugular venous distension: no JVD Rate: regular rate General: Yes bladder normal to palpation External Female Exam: No lesion Speculum Exam - Vagina: normal appearance of the vagina, normal vaginal discharge and not erythematous Speculum Exam - Cervix: normal appearance of the cervix and normal palpation Bimanual exam- vagina & uterus: bladder normal to palpation, normal palpation and uterus absent Bimanual Exam- Adnexa, other: Other (No masses detected) Assessment & Plan Assessment & Plan (1) Well woman exam: Code(s): Z01.419 - Encounter for gynecological examination (general) (routine) without abnormal findings Category: Medical Plan: Co testing not indicated this year. Counseled the patient about the recommended dietary allowance of 1200 mg of Calcium & 600 IU of vitamin D. Instructions given the patient to schedule next screening Mammogram in 01/18. The patient was instructed to perform monthly self-breast exams and schedule annual exam in a year. All questions answered and the patient verbalized understanding. Coding Level of Care Code Est Pt Prev Care 40-64y(86729) Diagnoses Well woman exam Z01.419
== END 2024-06-23 10:13 | disposition home or self-care (01) ==
PROVIDERS: PCP Internal Medicine; Visit Provider Obstetrics & Gynecology
DX: Z01.419 Encounter for gynecological examination (general) (routine) without abnormal findings (principal)
CPT/HCPCS: 99396

== ENCOUNTER → 2024-06-23 09:25 | Outpatient (BNVA) | payer OTHER, SELFPAY | PROVIDERS: PCP Internal Medicine; Visit Provider Obstetrics & Gynecology ==

== ENCOUNTER 2024-09-15 10:42 | Outpatient (AMB) | payer OTHER, SELFPAY ==
[2024-09-15 11:04] VITALS: BP 140/78; PULSE 75; O2SAT 98; BMI 24.0
--- NOTE | 2024-09-15 11:04 | MHC.PC.OV ---
Vital Signs 09/15/24 11:04 09/15/24 11:50 Height 5 ft 2 in Weight 131 lb BMI 24.0 BP 140/78 H 120/80 Blood Pressure Location Lt brachial Lt brachial Position Sitting Sitting Pulse 75 Pulse Source Pulse Oximeter Pulse Oximetry (%) 98 Oxygen Delivery Method Room Air Intake Visit Reasons: 5mth f/u Allergies No Known Allergies Allergy (Verified 09/15/24 11:04) Tobacco use date assessed: 01/08/24 Dental Screening Dental Screen Date: 01/08/24 HPI 5mth f/u HPI Details 53-year-old female with a history of seizures, cognitive impairment GERD generalized anxiety disorder hypercholesterolemia coming in for follow-up. last seen 03/2024. up to date with mammogram, colonoscopy. Review of the notes ER visit May 16 diagnosis of seizures and had injury. PET scan done in 04/19/2024 consistent with the diagnosis of Alzheimer's disease patient on Trileptal advised start new donepezil 5 mg for 2 weeks then increase to 10 mg once a day and patient was started on memantine on Abilify 15 mg and quetiapine 25 mg once a day MRI done no structural epileptogenic lesion identified mild global cerebral volume loss.. oriented to person , not to place and time, eating = not as big . [facility]- daughter [facility] Medical History Obesity (BMI 30-39.9) De Quervain's disease (radial styloid tenosynovitis) Hypercholesterolemia History of colon polyps Peroneal tendon rupture Abdominal wall hernia History of pulmonary embolism Wilms' tumor Insomnia Dysplasia of cervix, low grade (REGINE 1) GERD (gastroesophageal reflux disease) Tubular adenoma of colon Asthma Irritable bowel syndrome MARIO positive Surgical History History of esophagogastroduodenoscopy (EGD) Hx of breast biopsy History of cystoscopy Hx of colonoscopy S/P peroneal tendon repair History of nephrectomy Hx of breast reduction, elective Hx of tonsillectomy History of abdominal hysterectomy Family History Father Diabetes Chronic mental illness Mental health disorder Mother Hypertension CVD (cardiovascular disease) Cancer Maternal Grandfather Breast cancer Paternal Grandmother Breast cancer Paternal Aunt Breast cancer Brother Pancreatic cancer Daughter In good health Maternal Uncle Myocardial infarction Maternal Aunt CHF (congestive heart failure) Social History Household Members: Spouse and Children Housing: Apartment Are you a primary anesthesiologist and critical care to a significant other at home: No Do you presently have visiting nurse or other home services: No Alcohol intake: current Alcohol intake frequency: holidays/special occasions only Alcohol type: wine Comment: glass 1-2 x a week Patient Tobacco Use Status: Never used Tobacco e-Cigarette/Vaping Use: Never Used Second Hand Smoke Exposure: No service: No Current occupational status: disabled Sexual orientation: Straight/Heterosexual Gender identity: Female Cognitive needs: No Hearing needs: No Vision needs: Yes Female Reproductive History Menstrual Age of Menarche: 10 Questionnaire PHQ-9 Over the last 2 weeks, how often have you been bothered by any of the following problems? 1. Little interest or pleasure in doing things: more than half the days 2. Feeling down, depressed, or hopeless: nearly every day 3. Trouble falling or staying asleep, or sleeping too much: not at all 4. Feeling tired or having little energy: nearly every day 5. Poor appetite or overeating: more than half the days 6. Feeling bad about yourself - or that you are a failure or have let yourself or your family down: nearly every day 7. Trouble concentrating on things, such as reading the newspaper or watching television: more than half the days 8. Moving or speaking so slowly that other people could have noticed. Or the opposite - being so fidgety or restless that you have been moving around a lot more than usual: several days 9. Thoughts that you would be better off or of hurting yourself in some way: not at all Total score: 16 Depression Screening Interpretation: Positive Depression Screening Done: Yes 19325 - PHQ-9 Billing: Yes Source: Developed by Drs. Harsh Levy, Jacqueline Renee, Fransisco Granger and colleagues, with an educational valery from [employer]. Thrive Questionnaire Date Thrive assessed: 01/08/24 AUDIT C Alcohol Use Questionnaire (AUDIT-C) 1. How often do you have a drink containing alcohol?: Monthly or less 2. How many drinks containing alcohol do you have on a typical day when you are drinking?: 1 or 2 3. How often do you have six or more drinks on one occasion?: Never Total Score: 1 Score Reviewed/Action Taken: No MARY JO-7 AMB Questionnaire MARY JO-7 Date MARY JO - 7 assessed: 01/08/24 Source: Developed by Drs. Harsh Levy, Jacqueline Renee, Fransisco Granger and colleagues, with an educational valery from [employer]. Physical exam (Primary Care) Vital Signs: Last Vital Signs Pulse 75 09/15/24 11:04 BP 140/78 H 09/15/24 11:04 Pulse Ox 98 09/15/24 11:04 Oxygen Delivery Method Room Air 09/15/24 11:04 BMI result Body Mass Index 24.0 Tobacco/Smoking Status: Tobacco use Status Tobacco use date assessed 01/08/24 09/15/24 11:10 Patient Tobacco Use Status Never used Tobacco 09/15/24 11:10 e-Cigarette/Vaping Use Never Used 09/15/24 11:10 PHQ-9: PHQ-9 Score PHQ-9: Total score 16 09/15/24 11:10 Depression Screening Interpretation: Positive Thrive Assessment: Date of Thrive Assessment Date Thrive assessed 01/08/24 09/15/24 11:10 Const General: alert; No acute distress Eyes Conjunctivae: conjunctivae normal Resp Auscultation: clear to auscultation bilaterally Cardio Rate: regular rate Rhythm: regular rhythm GI Inspection: Yes normal to inspection Extrem General: Yes normal to inspection and No edema Coding Level of Care Code Est Pt Level 4 (82100) Diagnoses Alzheimer's dementia G30.9; F02.80 Partial seizure R56.9 Gastroesophageal reflux disease without esophagitis K21.9 Esophagitis presence: without esophagitis Mild intermittent asthma without complication J45.20 Asthma severity: mild Asthma persistence: intermittent Asthma complication type: uncomplicated Assessment & Plan Assessment & Plan (1) Alzheimer's dementia: Code(s): G30.9 - Alzheimer's disease, unspecified; F02.80 - Dementia in other diseases classified elsewhere, unspecified severity, without behavioral disturbance, psychotic disturbance, mood disturbance, and anxiety Category: Medical Plan: Patient has seen Neurology and has been advised to start on donepezil and memantine continuing with Abilify. (2) Partial seizure: Code(s): R56.9 - Unspecified convulsions Category: Medical Plan: Continue with Trileptal and quetiapine. (3) GERD (gastroesophageal reflux disease): Code(s): K21.9 - Gastro-esophageal reflux disease without esophagitis Category: Medical Qualifiers: Esophagitis presence: without esophagitis Qualified Code(s): K21.9 - Gastro-esophageal reflux disease without esophagitis Plan: Avoid the foods that causes that usually spicy foods, tomato products, juices, coffee, soda and foods that your sensitive to. After eating do not lie down, allow 3-4 hours before in lie down. And keep the head of bed above 30 degrees to avoid the acid from going up. (4) Asthma: Comment: Stable Code(s): J45.909 - Unspecified asthma, uncomplicated Category: Medical Qualifiers: Asthma severity: mild Asthma persistence: intermittent Asthma complication type: uncomplicated Qualified Code(s): J45.20 - Mild intermittent asthma, uncomplicated Plan: Stable and on albuterol as needed. Orders: Orders Complete Blood Count Auto Diff 3 Months K21.9 - Gastro-esophageal reflux disease without esophagitis Free T4 (Free Thyroxine) 3 Months K21.9 - Gastro-esophageal reflux disease without esophagitis Lipid Panel 3 Months E78.00 - Pure hypercholesterolemia, unspecified, K21.9 - Gastro-esophageal reflux disease without esophagitis Vitamin B12 and Folate 3 Months K21.9 - Gastro-esophageal reflux disease without esophagitis Vitamin D 25-OH Total 3 Months K21.9 - Gastro-esophageal reflux disease without esophagitis EEG electroencephalogram Today R56.9 - Unspecified convulsions Comprehensive Met. Panel 3 Months K21.9 - Gastro-esophageal reflux disease without esophagitis Thyroid Stimulating Hormone 3 Months K21.9 - Gastro-esophageal reflux disease without esophagitis UA CC w/rflx Micro + Cult 3 Months K21.9 - Gastro-esophageal reflux disease without esophagitis, R30.0 - Dysuria
[2024-09-15 11:50] VITALS: BP 120/80
== END 2024-09-15 12:02 | disposition home or self-care (01) ==
PROVIDERS: PCP Internal Medicine; Visit Provider Internal Medicine
DX: G30.9 Alzheimer's disease, unspecified (principal); F02.80 Dementia in other diseases classified elsewhere, unspecified severity, without behavioral disturbance, psychotic disturbance, mood disturbance, and anxiety; R56.9 Unspecified convulsions; K21.9 Gastro-esophageal reflux disease without esophagitis; J45.20 Mild intermittent asthma, uncomplicated

== ENCOUNTER → 2024-09-15 10:42 | Outpatient (BNVA) | payer OTHER, SELFPAY | PROVIDERS: PCP Internal Medicine; Visit Provider Internal Medicine ==

== ENCOUNTER 2024-09-30 10:01 | Outpatient (AMB) | payer OTHER, SELFPAY ==
[2024-09-30 10:03] VITALS: BMI 24.4
--- NOTE | 2024-09-30 10:03 | A.OFFVIS_ITS ---
Vital Signs 09/30/24 10:03 Height 5 ft 2 in Weight 133 lb 4 oz BMI 24.4 Intake Visit Reasons: 7 month F/U Intake Note: Patient presents for 7 month follow up. Patient had a seizure in April. Allergies No Known Allergies Allergy (Verified 09/30/24 10:07) Medication List - Last Reconciled 09/30/24 by Ciera Bhatt MD acetaminophen ER (Tylenol Arthritis Pain) 650 mg PO Q8H albuterol sulfate 90 mcg/actuation 2 puffs PO Q6H PRN alprazolam mg PO aripiprazole 15 mg PO DAILY budesonide-formoterol 160-4.5 mcg/actuation (Symbicort) 2 puffs inhalation Q12H donepezil 10 mg PO BEDTIME 90 days fluticasone propionate 50 mcg/actuation 2 sprays intranasal DAILY memantine 28 mg PO DAILY multivitamin 1 tab PO DAILY oxcarbazepine (Trileptal) 300 mg PO BID 30 days quetiapine 25 mg PO BEDTIME sertraline 25 mg PO DAILY HPI Comments Details: 53 y/o female patient presents with her for follow up of dementia 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 she is very calm - does not get excited, very confused . she has 27 year old daughter and 29 year old son. PET SCAN consistent with Alzheimers disease . Brain MRI result reviewed. No structural epileptogenic lesion identified within limitations of a 1.5 [facility] examination. No hippocampal pathology. Mild global cerebral volume loss. EEG result was Abnormal EEG suggestive of right hemispheric seizure focus, which could result in partial and complex partial seizure disorder. Pt started trileptal 300 mg BID. Pt's states that patient is more confused, has hard time figuring out the dressing, needs help for. She is forgetting her name, too. She is physically active, but need assistance for ADLs. She is on aripirazole, and seroquel, she is doing much better, no visual or auditory hallucination. Pt was admitted to [facility] for hallucination last year, and started abilify and seroquel. She is followed by psychiatrist. Pt has family hx of Alzheimer, her father and her sister, they all had early onset of Alzheimer. [facility] Medical History Obesity (BMI 30-39.9) De Quervain's disease (radial styloid tenosynovitis) Hypercholesterolemia History of colon polyps Peroneal tendon rupture Abdominal wall hernia History of pulmonary embolism Wilms' tumor Insomnia Dysplasia of cervix, low grade (REGINE 1) GERD (gastroesophageal reflux disease) Tubular adenoma of colon Asthma Irritable bowel syndrome MARIO positive Surgical History History of esophagogastroduodenoscopy (EGD) Hx of breast biopsy History of cystoscopy Hx of colonoscopy S/P peroneal tendon repair History of nephrectomy Hx of breast reduction, elective Hx of tonsillectomy History of abdominal hysterectomy Family History Father Diabetes Chronic mental illness Mental health disorder Mother Hypertension CVD (cardiovascular disease) Cancer Maternal Grandfather Breast cancer Paternal Grandmother Breast cancer Paternal Aunt Breast cancer Brother Pancreatic cancer Daughter In good health Maternal Uncle Myocardial infarction Maternal Aunt CHF (congestive heart failure) Social History Household Members: Spouse and Children Housing: Apartment Are you a primary care team assistant to a significant other at home: No Do you presently have visiting nurse or other home services: No Alcohol intake: current Alcohol intake frequency: holidays/special occasions only Alcohol type: wine Comment: glass 1-2 x a week Patient Tobacco Use Status: Never used Tobacco e-Cigarette/Vaping Use: Never Used Second Hand Smoke Exposure: No service: No Current occupational status: disabled Sexual orientation: Straight/Heterosexual Gender identity: Female Cognitive needs: No Hearing needs: No Vision needs: Yes Female Reproductive History Menstrual Age of Menarche: 10 Physical Exam Vital Signs: BMI result Body Mass Index 24.4 Const General: cooperative Nutritional Appearance: overweight Orientation/consciousness: oriented to person Neck Neck: Yes full ROM and Yes supple Resp Effort & Inspection: normal respiratory effort and able to speak in complete sentences Neuro General: oriented to person Cranial nerves: Yes CN's II-XII intact bilaterally Gait exam (Neuro): Normal gait present Motor exam (neuro): 5/5 motor strength present throughout, Pronator motor function not present and no tremor noted Deep tendon reflexes (DTR's): Rt Biceps (C5, C6): 2+, Left biceps reflex intensity grade: 2+, Right brachioradialis reflex intensity grade: 2+, Left brachioradialis reflex intensity grade: 2+, Right patellar reflex intensity grade: 2+ and Left patellar reflex intensity grade: 2+ Coordination: [id number] test normal Psych Appearance: grossly normal Mental Status: mental status grossly normal Speech and movement: Normal speech and movement present Affect: normal affect Attitude: cooperative Assessment & Plan Assessment & Plan (1) Alzheimer's dementia: Code(s): G30.9 - Alzheimer's disease, unspecified; F02.80 - Dementia in other diseases classified elsewhere, unspecified severity, without behavioral disturbance, psychotic disturbance, mood disturbance, and anxiety Category: Medical Qualifiers: Alzheimer's disease onset: early onset Dementia behavioral or psychological symptom: with other behavioral disturbance Dementia severity: severe Qualified Code(s): G30.0 - Alzheimer's disease with early onset; F02.C18 - Dementia in other diseases classified elsewhere, severe, with other behavioral disturbance (2) Partial seizure: Code(s): R56.9 - Unspecified convulsions Category: Medical (3) Neurodegenerative gait disorder: Code(s): R26.89 - Other abnormalities of gait and mobility Plan Discussed the diagnosis in detail . Discussed about newer advancements in early diagnosis and treatment for her son and daughter. she has fh/o early onset ALzheimers. Continue donepezil 10mg qd Namenda Xr 28 mg qd Trileptal 300mg bid [email or web address] [facility] elder care Orders: Referrals [facility] Referral F02.C18 - Dementia in other diseases classified elsewhere, severe, with other behavioral disturbance, G30.0 - Alzheimer's disease with early onset, R26.89 - Other abnormalities of gait and mobility Coding Level of Care Code Est Pt Level 4 (40892) Complex EM visit Add On G2211 Diagnoses Severe early onset Alzheimer's dementia with other behavioral disturbance G30.0; F02.C18 Alzheimer's disease onset: early onset Dementia behavioral or psychological symptom: with other behavioral disturbance Dementia severity: severe Partial seizure R56.9 Neurodegenerative gait disorder R26.89
== END 2024-09-30 10:36 | disposition home or self-care (01) ==
LOC: HO.HSMS 10:02
PROVIDERS: PCP Internal Medicine; Visit Provider Psychiatry & Neurology Neurology
DX: G30.0 Alzheimer's disease with early onset (principal); F02.C18 Dementia in other diseases classified elsewhere, severe, with other behavioral disturbance; R56.9 Unspecified convulsions; R26.89 Other abnormalities of gait and mobility
CPT/HCPCS: 99214; G2211

== ENCOUNTER 2024-10-27 13:57 | Outpatient (AMB) | payer OTHER, SELFPAY ==
--- NOTE | 2024-10-27 14:04 | HO.NEPHOV ---
Vital Signs 10/27/24 14:06 Height 5 ft 2 in Weight 129 lb 4 oz BMI 23.6 BP 110/70 Blood Pressure Location Rt brachial Position Sitting Pulse 99 Pulse Source Pulse Oximeter Pulse Oximetry (%) 99 Oxygen Delivery Method Room Air Intake Visit Reasons: 1 year f/u/ LVM Account Resolution Expert Required: No Accompanied by: Spouse Allergies No Known Allergies Allergy (Verified 10/27/24 14:06) HPI Comments Details: Marlen was seen in follow-up of her acquired solitary kidney and a renal cyst. 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 She does not have any hematuria, night sweats, urinary symptoms, nausea, vomiting, diarrhea, chest pain, shortness of breath, proximal nocturnal dyspnea or orthopnea. She does not have any pedal edema. Her blood pressure has been at goal. She has no protein or blood in the urine. Her renal functions had been stable. She recently had hospitalization for hallucinations. Currently she does not have any systemic complaints. She does not take any nonsteroidal anti-inflammatory medications and tries to keep herself well hydrated [facility] Medical History Obesity (BMI 30-39.9) De Quervain's disease (radial styloid tenosynovitis) Hypercholesterolemia History of colon polyps Peroneal tendon rupture Abdominal wall hernia History of pulmonary embolism Wilms' tumor Insomnia Dysplasia of cervix, low grade (REGINE 1) GERD (gastroesophageal reflux disease) Tubular adenoma of colon Asthma Irritable bowel syndrome MARIO positive Surgical History History of esophagogastroduodenoscopy (EGD) Hx of breast biopsy History of cystoscopy Hx of colonoscopy S/P peroneal tendon repair History of nephrectomy Hx of breast reduction, elective Hx of tonsillectomy History of abdominal hysterectomy Family History Father Diabetes Chronic mental illness Mental health disorder Mother Hypertension CVD (cardiovascular disease) Cancer Maternal Grandfather Breast cancer Paternal Grandmother Breast cancer Paternal Aunt Breast cancer Brother Pancreatic cancer Daughter In good health Maternal Uncle Myocardial infarction Maternal Aunt CHF (congestive heart failure) Social History Household Members: Spouse and Children Housing: Apartment Are you a primary manager home healthcare to a significant other at home: No Do you presently have visiting nurse or other home services: No Alcohol intake: current Alcohol intake frequency: holidays/special occasions only Alcohol type: wine Comment: glass 1-2 x a week Patient Tobacco Use Status: Never used Tobacco e-Cigarette/Vaping Use: Never Used Second Hand Smoke Exposure: No service: No Current occupational status: disabled Sexual orientation: Straight/Heterosexual Gender identity: Female Cognitive needs: No Hearing needs: No Vision needs: Yes Female Reproductive History Menstrual Age of Menarche: 10 Review of Systems Const All systems reviewed & are unremarkable except as noted in HPI and below Physical Exam Vital Signs: Last Vital Signs Pulse 99 10/27/24 14:06 BP 110/70 10/27/24 14:06 Pulse Ox 99 10/27/24 14:06 Oxygen Delivery Method Room Air 10/27/24 14:06 BMI result Body Mass Index 23.6 Const General: comfortable and no acute distress Orientation/consciousness: patient oriented x3 HEENT Head: Yes normocephalic Mouth: Normal oral and palatal mucosa present Eyes EOM: EOMs intact bilaterally Neck Neck: Yes supple Resp Auscultation: clear to auscultation bilaterally Cardio Jugular venous distension: no JVD Rate: regular rate GI Palpation (GI): Soft to palpation Auscultation: normal bowel sounds General: Yes no CVA tenderness Back/Spine/Pelvis Back: no CVA tenderness Skin General skin exam: no rashes or lesions noted Neuro General: patient oriented x3 and moves all extremities Extrem General: Yes no pedal edema Results Reviewed Nephrology Results: Hgb 12.4 g/dl (12.0-16.0) 03/24/24 WBC 6.0 X10*3/uL (4.8-10.8) 03/24/24 Plt Count 262 X10*3/uL (160-400) 03/24/24 Sodium 143 mmol/L (135-145) 03/24/24 Potassium 3.9 mmol/L (3.3-5.1) 03/24/24 Chloride 108 mmol/L (96-108) 03/24/24 Carbon Dioxide 27 mmol/L (22-29) 03/24/24 BUN 10 mg/dL (9-16) 03/24/24 Creatinine 0.74 mg/dL (0.5-1.4) 03/24/24 Calcium 9.6 mg/dL (8.4-10.2) 03/24/24 Assessment & Plan Assessment & Plan (1) Solitary kidney, acquired: Comment: Nephro blastoma 8 years old nephrectomy Code(s): Z90.5 - Acquired absence of kidney Category: Medical Plan 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 Her renal functions are at baseline. She does not have blood or protein in the urine. Her blood pressure is at goal. Her volume status is optimal. She needs to hydrate herself well and avoid nonsteroidal anti-inflammatory medications. Her last renal imaging studies were unremarkable. I did not make any medication changes today. All her and her 's questions were answered. Coding Level of Care Code Est Pt Level 4 (53896) Diagnoses Solitary kidney, acquired Z90.5
[2024-10-27 14:06] VITALS: BP 110/70; PULSE 99; O2SAT 99; BMI 23.6
== END 2024-10-27 14:43 | disposition home or self-care (01) ==
PROVIDERS: PCP Internal Medicine; Visit Provider Internal Medicine Nephrology
DX: Z90.5 Acquired absence of kidney (principal)
CPT/HCPCS: 99213

== ENCOUNTER → 2024-10-27 13:57 | Outpatient (BNVA) | payer OTHER, SELFPAY | PROVIDERS: PCP Internal Medicine; Visit Provider Internal Medicine Nephrology ==

== ENCOUNTER 2024-11-19 08:37 | Outpatient (AMB) | payer OTHER, SELFPAY ==
--- NOTE | 2024-11-19 09:38 | AM.OFFWIN_ITS ---
Intake Vital Signs 11/19/24 09:39 Weight 56.245 kg BP 114/72 Blood Pressure Location Rt brachial Position Sitting Pulse 72 Pulse Source Pulse Oximeter Temp 97.9 F Temp Source Oral Pulse Oximetry (%) 98 Oxygen Delivery Method Room Air Intake Visit Reasons: EP ?UTI Intake Note: Patient here for lower back pain, burning when urinating which started about 2 days ago. Patient Tobacco Use Status: Never used Tobacco Allergies No Known Allergies Allergy (Verified 11/19/24 09:40) Do you need a note to return to daycare/school/sports/work: No HPI HPI Comments History of Present Illness Details 54 yo f hx of dementia here with her hus band presents w/ lower abd discomfort, flank pain, and difficulties w/ urination ( dysuria, urinary urgency, frequency) X 2 days. Patient has not had fevers, chills, nausea, vomiting, headache, vision changes, dizziness, weakness. Most of the hx obtained from Pe benign no CVAT, no abd tenderness on exam Hx and pe concerning for UTI vs cystitis. Unlikley pylo, acute abdomen, appendicitis, cholecysitits, pancreatitis Plan- UA Patients UA w/ 2+ leukocytes, cloud with sediment will treat w/ ceftin for UTI micro pending. NO abd tenderness one exam or CVAT no need for further iaging at this time. Advised to go to ed w/ new or worsening sx. [facility] Medical History Obesity (BMI 30-39.9) De Quervain's disease (radial styloid tenosynovitis) Hypercholesterolemia History of colon polyps Peroneal tendon rupture Abdominal wall hernia History of pulmonary embolism Wilms' tumor Insomnia Dysplasia of cervix, low grade (REGINE 1) GERD (gastroesophageal reflux disease) Tubular adenoma of colon Asthma Irritable bowel syndrome MARIO positive Surgical History History of esophagogastroduodenoscopy (EGD) Hx of breast biopsy History of cystoscopy Hx of colonoscopy S/P peroneal tendon repair History of nephrectomy Hx of breast reduction, elective Hx of tonsillectomy History of abdominal hysterectomy Family History Father Diabetes Chronic mental illness Mental health disorder Mother Hypertension CVD (cardiovascular disease) Cancer Maternal Grandfather Breast cancer Paternal Grandmother Breast cancer Paternal Aunt Breast cancer Brother Pancreatic cancer Daughter In good health Maternal Uncle Myocardial infarction Maternal Aunt CHF (congestive heart failure) Social History Household Members: Spouse and Children Housing: Apartment Are you a primary pediatric acute care unit nurse to a significant other at home: No Do you presently have visiting nurse or other home services: No Alcohol intake: current Alcohol intake frequency: holidays/special occasions only Alcohol type: wine Comment: glass 1-2 x a week Patient Tobacco Use Status: Never used Tobacco e-Cigarette/Vaping Use: Never Used Second Hand Smoke Exposure: No service: No Current occupational status: disabled Sexual orientation: Straight/Heterosexual Gender identity: Female Cognitive needs: No Hearing needs: No Vision needs: Yes Female Reproductive History Menstrual Age of Menarche: 10 Review of Systems Const All systems reviewed & are unremarkable except as noted in HPI and below Physical Exam Vital Signs: Last Vital Signs Temp 97.9 F 11/19/24 09:39 Pulse 72 11/19/24 09:39 BP 114/72 11/19/24 09:39 Pulse Ox 98 11/19/24 09:39 Oxygen Delivery Method Room Air 11/19/24 09:39 vss Appearance: Alert.? Oriented X3.? No acute distress.? Head: Normocephalic, atraumatic, no step-offs or deformities Eyes: Pupils equal, round and reactive to light.? CVS: Normal heart rate and rhythm.? Pulses normal.? Respiratory: No respiratory distress.? Breath sounds normal.? Abdomen: Soft and nontender.? Skin: Skin warm and dry.? Normal skin color.? Normal skin turgor.? Extremities: No lower extremity edema.? No calf ttp. 5/5 strength to bilateral upper and lower extremities Back: No midline tenderness, no C-spine tenderness, full range of motion, no CVA tenderness bilaterally Neuro: Oriented X 3.? No motor deficit.? No sensory deficit. CN 2-12 intact Assessment & Plan Assessment & Plan (1) UTI (urinary tract infection): Code(s): N39.0 - Urinary tract infection, site not specified Plan Take your medications as prescribed. If you were prescribed antibiotics today, it is important that you take your medication to their entirety, do not skip any doses, do not finish them early. Follow-up with your primary care provider this week. Return to the emergency department with new or worsening symptoms. In case of emergency call 911 Medications: New cefuroxime axetil 250 mg PO BID 14 tabs 0RF 7 days Coding Level of Care Code Est Pt Level 3 (98589) Diagnoses UTI (urinary tract infection) N39.0
[2024-11-19 09:39] VITALS: BP 114/72; PULSE 72; TEMP 36.6; O2SAT 98
== END 2024-11-19 11:23 | disposition home or self-care (01) ==
PROVIDERS: PCP Internal Medicine; Visit Provider Physician Assistant
DX: N39.0 Urinary tract infection, site not specified (principal); R30.0 Dysuria

== ENCOUNTER → 2024-11-19 08:37 | Outpatient (BNVA) | payer OTHER, SELFPAY | PROVIDERS: PCP Internal Medicine; Visit Provider Physician Assistant | DX: N39.0 Urinary tract infection, site not specified (principal) | CPT/HCPCS: 81003 ==

== ENCOUNTER 2024-12-09 07:58 | Outpatient (REF) | payer OTHER, SELFPAY ==
--- NOTE | 2024-12-09 08:12 | EEG_ITS ---
This is a 16-channel EEG with an EKG lead. The patient is reported awake and drowsy during the tracing. Background EEG rhythm is mixed theta beta, medium amplitude with no obvious asymmetry or paroxysmal tendency. Photic stimulation does not produce any significant driving. Hyperventilation is not performed. Cardiac lead does not reveal any significant abnormality. IMPRESSION: Generalized slowing with no evidence of seizure disorder. MD MIRYAM Shepherd/DENZEL / [id number]
== END 2024-12-09 07:59 | disposition home or self-care (01) ==
LOC: HO.NEURO 07:58
PROVIDERS: PCP Internal Medicine; Visit Provider Internal Medicine
DX: R56.9 Unspecified convulsions (principal)
CPT/HCPCS: 95816

== ENCOUNTER 2024-12-27 14:41 | Outpatient (AMB) | payer OTHER, SELFPAY ==
[2024-12-27 14:56] VITALS: BP 118/72; BMI 22.2
--- NOTE | 2024-12-27 14:56 | MHC.PC.OV ---
Vital Signs 12/27/24 14:56 Height 5 ft 2 in Weight 121 lb 7.595 oz BMI 22.2 BP 118/72 Blood Pressure Location Lt brachial Position Sitting Intake Visit Reasons: Alzheimer's Linen Attendant Required: No Accompanied by: Spouse Allergies No Known Allergies Allergy (Verified 12/27/24 15:03) Medication List - Last Reconciled 12/27/24 by Danitza Headley MD acetaminophen ER (Tylenol Arthritis Pain) 650 mg PO Q8H albuterol sulfate 90 mcg/actuation 2 puffs PO Q6H PRN aripiprazole 15 mg PO DAILY budesonide-formoterol 160-4.5 mcg/actuation (Symbicort) 2 puffs inhalation Q12H clonazepam 0.5 mg PO DAILY donepezil 10 mg PO BEDTIME 90 days fluticasone propionate 50 mcg/actuation 2 sprays intranasal DAILY memantine 28 mg PO DAILY multivitamin 1 tab PO DAILY oxcarbazepine (Trileptal) 300 mg PO BID 30 days sertraline 25 mg PO DAILY Tobacco use date assessed: 12/27/24 Dental Screening Dental Screen Date: 12/27/24 Did you have a dental visit in the last 12 months?: No Did you have a dental problem in the last 6 months where you did not have access to dental care?: No Was dental information given to patient?: Patient has dentist HPI Alzheimer's HPI Details The patient is a 54-year-old female presenting with anxiety and ongoing challenges related to Alzheimer's disease. The anxiety has been noted to fluctuate, often requiring interventions with prescribed clonazepam, administered at a dose of 0.5 mg once daily as needed. Concerns regarding the potential for dependency were discussed, and the usage is reportedly restricted to occasions when necessary. The patient's diagnosis of Alzheimer's disease has been confirmed through a PET scan, and she is currently under the care of a telepsychiatrist, Dr. Vogel, who resides in [place]. Recent treatments for Alzheimer's-related symptoms have included donepezil and memantine. These medications may contribute to the patient's current issue with sialorrhea, as they have been associated with decreased saliva production; these observations are contrary as sialorrhea is generally characterized by an overproduction of saliva. An additional concern is the appearance of a rash, for which [id number] hydrocortisone cream was suggested for symptom management. The patient's mother prior to a planned visit to [place], which may have contributed to increased emotional distress during that period. The patient has been compliant with her vaccinations, including the flu vaccine received at a local [facility] Medical History Obesity (BMI 30-39.9) De Quervain's disease (radial styloid tenosynovitis) Hypercholesterolemia History of colon polyps Peroneal tendon rupture Abdominal wall hernia History of pulmonary embolism Wilms' tumor Insomnia Dysplasia of cervix, low grade (REGINE 1) GERD (gastroesophageal reflux disease) Tubular adenoma of colon Asthma Irritable bowel syndrome MARIO positive Surgical History History of esophagogastroduodenoscopy (EGD) Hx of breast biopsy History of cystoscopy Hx of colonoscopy S/P peroneal tendon repair History of nephrectomy Hx of breast reduction, elective Hx of tonsillectomy History of abdominal hysterectomy Family History Father Diabetes Chronic mental illness Mental health disorder Mother Hypertension CVD (cardiovascular disease) Cancer Maternal Grandfather Breast cancer Paternal Grandmother Breast cancer Paternal Aunt Breast cancer Brother Pancreatic cancer Daughter In good health Maternal Uncle Myocardial infarction Maternal Aunt CHF (congestive heart failure) Social History (Updated 12/27/24 @ 15:04 by NOAH Dooley) Household Members: Spouse and Children Housing: Apartment Are you a primary primary care nurse practitioner to a significant other at home: No Do you presently have visiting nurse or other home services: No Alcohol intake: former Comment: glass 1-2 x a week Patient Tobacco Use Status: Never used Tobacco e-Cigarette/Vaping Use: Never Used Second Hand Smoke Exposure: No service: No Current occupational status: disabled Sexual orientation: Straight/Heterosexual Gender identity: Female Cognitive needs: No Hearing needs: No Vision needs: Yes Female Reproductive History Menstrual Age of Menarche: 10 Questionnaire PHQ-9 Over the last 2 weeks, how often have you been bothered by any of the following problems? 1. Little interest or pleasure in doing things: not at all 2. Feeling down, depressed, or hopeless: not at all 3. Trouble falling or staying asleep, or sleeping too much: not at all 4. Feeling tired or having little energy: not at all 5. Poor appetite or overeating: not at all 6. Feeling bad about yourself - or that you are a failure or have let yourself or your family down: not at all 7. Trouble concentrating on things, such as reading the newspaper or watching television: not at all 8. Moving or speaking so slowly that other people could have noticed. Or the opposite - being so fidgety or restless that you have been moving around a lot more than usual: not at all 9. Thoughts that you would be better off or of hurting yourself in some way: not at all Total score: 0 Depression Screening Interpretation: Negative Depression Screening Done: Yes Source: Developed by Drs. Harsh Levy, Jacqueline Renee, Fransisco Granger and colleagues, with an educational valery from [employer]. Thrive Questionnaire Date Thrive assessed: 12/27/24 I am a: Parent/Caregiver What is your living situation today?: I have a steady place to live Within the past 12 months, did the food you bought not last and you didn't have the money to get more?: Never true Within the past 12 months, did you worry whether your food would run out before you got money to buy more?: Never true Do you have trouble paying for medicines?: No Do you have trouble getting transportation to medical appointments?: No Do you have trouble paying your heating and electricity bill?: No Do you have trouble taking care of your child, family member or friend?: No Do you have trouble with day-to-day activities such as bathing, preparing meals, shopping, managing finances, etc.?: No Are you currently unemployed and looking for a job?: No Are you interested in more education?: No Please select the resources that you would like help with: None Currently or been in a relationship where the following occur: No concerns reported THRIVE Score: 0 AUDIT C Alcohol Use Questionnaire (AUDIT-C) 1. How often do you have a drink containing alcohol?: Never Total Score: 0 MARY JO-7 AMB Questionnaire MARY JO-7 Date MARY JO - 7 assessed: 12/27/24 Feeling nervous, anxious, or on edge: 1 = Several days Not being able to stop or control worryin = Not at all Worrying too much about different things: 0 = Not at all Trouble relaxin = Several days Being so restless that it is hard to sit still: 0 = Not at all Becoming easily annoyed or irritable: 0 = Not at all Feeling afraid as if something awful might happen: 0 = Not at all Total MARY JO-7 score (0-4 normal; 5-9 mild; 10-14 moderate; 15-21 severe): 2 Source: Developed by Drs. Harsh Levy, Jacqueline Renee, Fransisco Granger and colleagues, with an educational valery from [employer]. Physical exam (Primary Care) Vital Signs: Last Vital Signs BP 118/72 12/27/24 14:56 BMI result Body Mass Index 22.2 Tobacco/Smoking Status: Tobacco use Status Tobacco use date assessed 12/27/24 12/27/24 15:05 Patient Tobacco Use Status Never used Tobacco 12/27/24 15:04 e-Cigarette/Vaping Use Never Used 12/27/24 15:04 PHQ-9: PHQ-9 Score PHQ-9: Total score 0 12/27/24 15:37 Depression Screening Interpretation: Negative Thrive Assessment: Date of Thrive Assessment Date Thrive assessed 12/27/24 12/27/24 15:05 Currently or been in a relationship where the following occur: No concerns reported Const Other: minimal words and speaks in a slow monotonous tone General: alert; No acute distress Eyes Conjunctivae: conjunctivae normal Resp Auscultation: clear to auscultation bilaterally Cardio Rate: regular rate Rhythm: regular rhythm GI Inspection: Yes normal to inspection Extrem General: Yes normal to inspection and No edema Coding Level of Care Code Est Pt Level 4 (87005) Diagnoses Severe early onset Alzheimer's dementia with other behavioral disturbance G30.0; F02.C18 Alzheimer's disease onset: early onset Dementia behavioral or psychological symptom: with other behavioral disturbance Dementia severity: severe Solitary kidney, acquired Z90.5 Gastroesophageal reflux disease without esophagitis K21.9 Esophagitis presence: without esophagitis Generalized anxiety disorder F41.1 Assessment & Plan Assessment & Plan (1) Alzheimer's dementia: Comment: PET scan 2023 Code(s): G30.9 - Alzheimer's disease, unspecified; F02.80 - Dementia in other diseases classified elsewhere, unspecified severity, without behavioral disturbance, psychotic disturbance, mood disturbance, and anxiety Category: Medical Qualifiers: Alzheimer's disease onset: early onset Dementia behavioral or psychological symptom: with other behavioral disturbance Dementia severity: severe Qualified Code(s): G30.0 - Alzheimer's disease with early onset; F02.C18 - Dementia in other diseases classified elsewhere, severe, with other behavioral disturbance (2) Solitary kidney, 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 - Continue neurologic management of Alzheimer's disease with donepezil and memantine, assessing for potential side effects such as sialorrhea and adverse interactions. - Manage sialorrhea symptomatically and consider evaluating current medication regimen for potential adjustments. - Prescribe [id number] hydrocortisone cream for localized rash management and reassess if symptoms persist or worsen. - Follow preventive measures for allergic rhinitis by limiting exposure to allergens, with fluticasone nasal spray used only for acute symptom relief as needed. - Maintain vigilance with preventive health measures, ensuring vaccinations are up-to-date and addressing any gaps in care.
--- OUTSIDE RECORDS SUMMARY | 2024-12-27 16:14 | XMS_ITS | Clinical Summary ---
Author Organization [facility] Address [address] [place] [address] Phone Care Team Providers Care Executive Vp Name Role Phone Danitza Headley MD Primary Care Provider [phone] Allergies No known active allergies Medications Fluticasone Furoate-Vilante rol (Breo Ellipta) 100-25 MCG/INH aerosol powder Active fluticasone (FLONASE) 50 MCG/ACT nasal spray Administer 2 sprays into each nostril 1 (one) time each day Active albuterol HFA (PROVENTIL HFA;VENTOLIN HFA) 108 (90 Base) MCG/ACT inhaler Active Multiple Vitamin (multivitamin) tablet Take 1 tablet by mouth 1 (one) time each day Active Active Problems Problem Noted Date Diagnosed Date Abnormal cytology findings 10/30/2022 Irritable bowel syndrome 10/30/2022 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 Varicella 10/30/2022 Mixed anxiety and depressive disorder 10/30/2022 Simple renal cyst 10/25/2021 Total nephrectomy 10/25/2021 Resolved Problems Problem Noted Date Diagnosed Date Resolved Date Anxiety state 10/25/2021 10/25/2021 Asthma 10/25/2021 10/25/2021 Depressive disorder 10/25/2021 10/25/20 21 Disorder of small intestine 10/25/2021 10/25/2021 H/O Spinal surgery 10/25/2021 History of reduction of breast 10/25/2021 10/25/2021 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 Lipoma of skin and subcutane ous tissue of face 03/31/2018 10/25/2021 Family History Relation Status Comments Father Mother Alive Social History Tobacco Use Types Packs/Day Years Used Date Smoking Tobacco: Never Smokeless Tobacco: Never Tobacco Cessation:Counseling Given: Not Answered Alcohol Use Standard Drinks/Week Comments Yes 0 (1 standard drink = 0.6 oz pure alcohol) Alcoholic Drinks/day: Occasional social drink Comments Unknown Sex and Gender Information Value Date Recorded Sex Assigned at Not on file Legal Sex Female 4:45 PM EST Gender Identity Not on file Sexual Orientation Not on file Last Filed Vital Signs Vital Sign Reading Time Taken Comments Blood Pressure 110/72 10/30/2022 4:12 PM EST Pulse 92 10/30/2022 4:12 PM EST Temperature - - Respiratory Rate - - Oxygen Saturation 98% 10/26/2021 3:27 PM EST Inhaled Oxygen Concentration - - Weight 68.9 kg (152 lb) 10/30/2022 4:12 PM EST Height 157.5 cm (5' 2 ) 07/17/2020 12:00 PM EDT Body Mass Index 27.8 07/17/2020 12:00 PM EDT Plan of Treatment Health Maintenance Due Date Last Done Comments Breast Cancer Screening 1970 Pneumococcal Vaccine: Pediat rics (0 to 5 Years) and At-Risk Patients (6 to 64 Years) (1 of 2 - PCV) 1976 Hepatitis B Vaccine (1 of 3 - 19+ 3-dose series) 11/10 Colorectal Cancer Screening: Annual FOBT 2019 Colorectal Cancer Screening: Colonoscopy 2019 Colorectal Cancer Screening: Sigmoidoscopy 2019 Influenza Vaccine (#1) 2024 Insurance [facility] [place] [address] [facility] Care Teams Executive Vp Relationship Specialty Start Date End Date Danitza Headley MD [address] [place] PCP - General 12/04/20
--- OUTSIDE RECORDS SUMMARY | 2024-12-27 16:15 | XMS_ITS | Encounter Summary ---
Author Organization [facility] Address [phone] [place] [address] Care Team Providers Care Website Admin Name Role Phone Pcp, Unknown Primary Care Provider Danitza Branch MD Primary Care Provider [phone] Encounter Details Date Type Department Care Team ([facility] st Contact Info) Description 11/09/2024 Telephone [facility] Department of Neurology [address] [place] [address] Curly Fatima MD [address] [place] [phone] [email or web address] Social History Tobacco Use Types Packs/Day Years Used Date Smoking Tobacco: Never Assessed Education Answer Date Recorded Are you interested in more education? Not on arvind e 03/22/2023 Are you concerned about learning? Not on file 03/22/2023 No 03/22/2023 No 03/22/2023 Digital Access Answer Date Recorded No 04/22/2023 No 04/22/2023 Reliable internet access at home? Not on file 04/22/2023 Device with a working camera? Not on file Sex and Gender Information Value Date Recorded Sex Assigned at Not on file Gender Identity Not on file Sexual Orientation Not on file documented as of this encounter Progress Notes * Kevin Muñoz - 11/09/2024 11:24 AM EST Trying to contact pt to confirm and obtain records for upcoming NEW Virtual with Dr. Fatima on 11/22/24. Called x4 the only number listed ([phone]), but it only rings and there is no option to leave message. Left message on gateway, but pt hasn't signed onto gateway since 07/04/22. Also, printed appt reminder letter and mailing it today. documented in this encounter Plan of Treatment Upcoming Encounters Date Type Department Care Team (Late st Contact Info) Description 03/29/2025 8:00 AM EDT Office Visit [facility] Department of Neurology [address] [place] [address] Jerald Burgos MD [address] [facility] [place] [address] [email or web address] documented as of this encounter Visit Diagnoses Not on filedocumented in this encounter Care Teams Website Admin Relationship Specialty Start Date End Date Pcp, Unknown PCP - General 06/27/22 11/18/24 Danitza Headley MD [address] [place] [address] PCP - General Internal Medicine 11/19/24 documented as of this encounter Additional Source Comments The information contained in this document represents components of the legal health record. It is not the complete legal health record.[facility]
--- OUTSIDE RECORDS SUMMARY | 2024-12-27 16:15 | XMS_ITS | Encounter Summary ---
Author Organization [facility] Address [phone] [place] [address] Care Team Providers Care Pruner Name Role Phone Pcp, Unknown Primary Care Provider Unavailabl e Danitza Headley MD Primary Care Provider [phone] Encounter Details Date Type Department Care Team (Late st Contact Info) Description 06/27/2022 Procedure Pass [facility], Ct Scan - [address] [address] Social History Tobacco Use Types Packs/Day Years Used Date Smoking Tobacco: Never Assessed Sex and Gender Information Value Date Recorded Sex Assigned at Not on file Gender Identity Not on file Sexual Orientation Not on file documented as of this encounter Plan of Treatment Upcoming Encounters Date Type Department Care Team (Late st Contact Info) Description 03/29/2025 8:00 AM EDT Office Visit [facility] Department of Neurology [address] [place] [address] Jerald Burgos MD 60 [facility] Department [place] [address] [email or web address] documented as of this encounter Visit Diagnoses Not on filedocumented in this encounter Care Teams Pruner Relationship Specialty Start Date End Date Pcp, Unknown PCP - General 06/27/22 11/18/24 Danitza Headley MD [address] [place] [address] PCP - General Internal Medicine 11/19/24 documented as of this encounter Additional Source Comments The information contained in this document represents components of the legal health record. It is not the complete legal health record.[facility]
== END 2024-12-27 15:52 | disposition home or self-care (01) ==
PROVIDERS: PCP Internal Medicine; Visit Provider Internal Medicine
DX: G30.0 Alzheimer's disease with early onset (principal); F02.C18 Dementia in other diseases classified elsewhere, severe, with other behavioral disturbance; Z90.5 Acquired absence of kidney; K21.9 Gastro-esophageal reflux disease without esophagitis; F41.1 Generalized anxiety disorder

== ENCOUNTER → 2024-12-27 14:41 | Outpatient (BNVA) | payer OTHER, SELFPAY | PROVIDERS: PCP Internal Medicine; Visit Provider Internal Medicine ==

== ENCOUNTER 2025-01-06 12:55 | Outpatient (REF) | payer OTHER, SELFPAY ==
--- OUTSIDE RECORDS SUMMARY | 2025-01-06 13:00 | XMS_ITS | Clinical Summary ---
Author Organization [facility] Address [address] [place] [address] Phone Care Team Providers Care Landscaping And Groundskeeping Laborer Name Role Phone Danitza Headley MD Primary Care Provider [phone] Allergies No known active allergies Medications Fluticasone [...] Sigmoidoscopy 2019 Influenza Vaccine (#1) 2024 Insurance [facility] [place] [address] [facility] Care Teams Landscaping And Groundskeeping Laborer Relationship Specialty Start Date End Date Danitza Headley MD [address] [place] PCP - General 12/04/20
== END 2025-01-06 12:56 | disposition home or self-care (01) ==
LOC: HO.MAMMO 12:55
PROVIDERS: PCP Internal Medicine; Visit Provider Internal Medicine
DX: Z13.89 Encounter for screening for other disorder (principal)

== ENCOUNTER 2025-01-10 12:40 | Outpatient (REF) | payer OTHER, SELFPAY ==
--- OUTSIDE RECORDS SUMMARY | 2025-01-10 15:52 | XMS_ITS | Clinical Summary ---
Author Organization [facility] Address [address] [place] [address] Phone Care Team Providers Care Material Assembler Name Role Phone Danitza Headley MD Primary Care Provider [phone] Allergies No known active allergies Medications Fluticasone [...] Sigmoidoscopy 2019 Influenza Vaccine (#1) 2024 Insurance [facility] [place] [address] [facility] Care Teams Material Assembler Relationship Specialty Start Date End Date Danitza Headley MD [address] [place]O MENCHACA PCP - General 12/04/20
--- OUTSIDE RECORDS SUMMARY | 2025-01-10 15:52 | XMS_ITS | Clinical Summary ---
Author Organization [facility] Address [phone] [place] [address] Care Team Providers Care Baker Apprentice Name Role Phone Danitza Headley MD Primary Care Provider [phone] Allergies No known active allergies Medications No known medications Encounters Date Type Department Care Team Description 11/09/2024 Telephone [facility] [place]rology [address] [place] [address] Curly Fatima MD from Last 3 Months [...] Description 03/29/2025 8:00 AM EDT Office Visit [facility] Department of Neurology [address] [place] [address] Jerald Burgos MD 60 [facility] [place] [address] [email or web address] Health Maintenance Due Date Last Done [...] Medical Devices Not on file Care Teams Baker Apprentice Relationship Specialty Start Date End Date Danitza Headley MD 2 [place], [place] [phone] PCP - General Internal Medicine 11/19/24 Additional Source Comments The information contained in this document represents components of the legal health record. It is not the complete legal health record.[facility]
--- OUTSIDE RECORDS SUMMARY | 2025-01-10 15:52 | XMS_ITS | Encounter Summary ---
Author Organization [facility] Address [phone] [place] [address] Care Team Providers Care Restaurant Line Server Name Role Phone Pcp, Unknown Primary Care Provider Unavailabl e Danitza Headley MD Primary Care Provider [phone] Encounter Details Date Type Department Care Team (Late st Contact Info) Description 06/27/2022 Procedure Pass [facility], Ct Scan - [address] [address] Social History Tobacco Use Types Packs/Day Years Used Date Smoking Tobacco: Never Assessed Sex and Gender Information Value Date Recorded Sex Assigned at Not on file Gender Identity Not on file Sexual Orientation Not on file documented as of this encounter Plan of Treatment Upcoming Encounters Date Type Department Care Team (Late st Contact Info) Description 03/29/2025 8:00 AM EDT Office Visit [facility] Department of Neurology [address] [place] [address] Jerald Burgos MD 60 [facility] Department [place] [address] [email or web address] documented as of this encounter Visit Diagnoses Not on filedocumented in this encounter Care Teams Restaurant Line Server Relationship Specialty Start Date End Date Pcp, Unknown PCP - General 06/27/22 11/18/24 Danitza Headley MD [address] [place] [address] PCP - General Internal Medicine 11/19/24 documented as of this encounter Additional Source Comments The information contained in this document represents components of the legal health record. It is not the complete legal health record.[facility]
--- OUTSIDE RECORDS SUMMARY | 2025-01-10 15:52 | XMS_ITS | Encounter Summary ---
Author Organization [facility] Address [phone] [address] Care Team Providers Care Solutions Development Analyst Name Role Phone Pcp, Unknown Primary Care Provider Danitza Branch MD Primary Care Provider [phone] Encounter Details Date Type Department Care Team ([facility] st Contact Info) Description 11/09/2024 Telephone [facility] Department of Neurology [address] [place] [address] Curly Fatima MD [address] [place] [address] [email or web address] Social History Tobacco Use Types Packs/Day [...] 11/22/24. Called x4 the only number listed ([phone]), but it only rings and there is no option to leave message. Left message on gateway, but pt hasn't signed onto gateway since 07/04/22. Also, printed appt reminder letter and mailing it today. documented in this encounter Plan of Treatment Upcoming Encounters Date Type Department Care Team (Late st Contact Info) Description 03/29/2025 8:00 AM EDT Office Visit [facility] Department of Neurology [address] [place] [address] Jerald Burgos MD 60 [facility] [place] [address] [email or web address] documented as of this encounter Visit Diagnoses Not on filedocumented in this encounter Care Teams Solutions Development Analyst Relationship Specialty Start Date End Date Pcp, Unknown PCP - General 06/27/22 11/18/24 Danitza Headley MD [address] [place] [address] PCP - General Internal Medicine 11/19/24 documented as of this encounter Additional Source Comments The information contained in this document represents components of the legal health record. It is not the complete legal health record.[facility]
== END 2025-01-10 12:41 | disposition home or self-care (01) ==
LOC: HO.LNP 12:40
PROVIDERS: Visit Provider Physician Assistant
DX: N39.0 Urinary tract infection, site not specified (principal)
CPT/HCPCS: 87086

== ENCOUNTER 2025-01-10 12:40 | Outpatient (AMB) | payer OTHER, SELFPAY ==
--- OUTSIDE RECORDS SUMMARY | 2025-01-10 12:42 | XMS_ITS | Clinical Summary ---
Author Organization [facility] Address [address] [place] [address] Phone Care Team Providers Care Ornamental Painter Name Role Phone Danitza Headley MD Primary Care Provider [phone] Allergies No known active allergies Medications Fluticasone [...] Sigmoidoscopy 2019 Influenza Vaccine (#1) 2024 Insurance [facility] [place] [address] [facility] Care Teams Ornamental Painter Relationship Specialty Start Date End Date Danitza Headley MD [address] [place] PCP - General 12/04/20
--- OUTSIDE RECORDS SUMMARY | 2025-01-10 12:43 | XMS_ITS | Encounter Summary ---
Author Organization [facility] Address [phone] [address] Care Team Providers Care Hat Brusher Machine Name Role Phone Pcp, Unknown Primary Care Provider Danitza Branch MD Primary Care Provider [phone] Encounter Details Date Type Department Care Team ([facility] st Contact Info) Description 11/09/2024 Telephone [facility] Department of Neurology [address] [place] [address] Curly Fatima MD [address] [place] [phone] [email or web address] Social History Tobacco Use Types Packs/Day Years [...] 11/22/24. Called x4 the only number listed ([phone]), but it only rings and there is no option to leave message. Left message on gateway, but pt hasn't signed onto gateway since 07/04/22. Also, printed appt reminder letter and mailing it today. documented in this encounter Plan of Treatment Upcoming Encounters Date Type Department Care Team (Late st Contact Info) Description 03/29/2025 8:00 AM EDT Office Visit [facility] Department of Neurology [address] [place] [address] Jerald Burgos MD [address] [facility] Department [place] [address] [email or web address] documented as of this encounter Visit Diagnoses Not on filedocumented in this encounter Care Teams Hat Brusher Machine Relationship Specialty Start Date End Date Pcp, Unknown PCP - General 06/27/22 11/18/24 Danitza Headley MD [address] [place] [address] PCP - General Internal Medicine 11/19/24 documented as of this encounter Additional Source Comments The information contained in this document represents components of the legal health record. It is not the complete legal health record.[facility]
--- OUTSIDE RECORDS SUMMARY | 2025-01-10 12:43 | XMS_ITS | Encounter Summary ---
Author Organization [facility] Address [phone] [place] [address] Care Team Providers Care President Educational Institution Name Role Phone Pcp, Unknown Primary Care Provider Unavailabl e Danitza Headley MD Primary Care Provider [phone] Encounter Details Date Type Department Care Team (Late st Contact Info) Description 06/27/2022 Procedure Pass [facility], Ct Scan - [address] [address] Social History Tobacco Use Types Packs/Day Years Used Date Smoking Tobacco: Never Assessed Sex and Gender Information Value Date Recorded Sex Assigned at Not on file Gender Identity Not on file Sexual Orientation Not on file documented as of this encounter Plan of Treatment Upcoming Encounters Date Type Department Care Team (Late st Contact Info) Description 03/29/2025 8:00 AM EDT Office Visit [facility] Department of Neurology [address] [place] [address] Jerald Burgos MD 60 [facility] [place] [address] [email or web address] documented as of this encounter Visit Diagnoses Not on filedocumented in this encounter Care Teams President Educational Institution Relationship Specialty Start Date End Date Pcp, Unknown PCP - General 06/27/22 11/18/24 Danitza Headley MD [address] [place] [address] PCP - General Internal Medicine 11/19/24 documented as of this encounter Additional Source Comments The information contained in this document represents components of the legal health record. It is not the complete legal health record.[facility]
--- OUTSIDE RECORDS SUMMARY | 2025-01-10 12:43 | XMS_ITS | Clinical Summary ---
Author Organization [facility] Address [phone] [place] [address] Care Team Providers Care Manager Retail Name Role Phone Danitza Headley MD Primary Care Provider [phone] Allergies No known active allergies Medications No known medications Encounters Date Type Department Care Team Description 11/09/2024 Telephone [facility] [place] [address] [place] [address] Curly Fatima MD from Last 3 Months Social History Tobacco Use Types Packs/Day Years [...] Sign Reading Time Taken Comments Blood Pressure 138/85 06/27/2022 8:31 PM EDT Pulse 58 06/27/2022 8:31 PM EDT Temperature 36.3 ??C (97.3 ??F) 06/27/2022 8:31 PM ED T Respiratory Rate 16 06/27/2022 8:31 PM EDT Oxygen Saturation 99% 06/27/2022 8:31 PM EDT Inhaled Oxygen Concentration - - Weight 70.3 kg (155 lb) 06/27/2022 2:33 PM EDT Height 157.5 cm (5' 2 ) 06/27/2022 2:33 PM EDT Body Mass Index 28.35 06/27/2022 2:33 PM EDT Plan of Treatment Upcoming Encounters Date Type Department Care Team (Late st Contact Info) Description 03/29/2025 8:00 AM EDT Office Visit [facility] Department of Neurology [address] [place] [address] Jerald Burgos MD 60 [facility] [place] [address] [email or web address] Maintenance Due Date Last Done Comments Adult Td,Tdap Booster 1970 LIPID PANEL 1970 DEPRESSION SCREENING 1982 SMOKING Hx and SMOKELESS TOB ACCO SCREENING 1983 HEPATITIS B SCREENING 1988 HEPATITIS C SCREENING 1988 HIV ONE-TIME SCREENING (18-6 5 YEARS) 1988 HEPATITIS B VACCINES (1 of 3 - 19+ 3-dose series) 1989 PAP SMEAR 1991 MAMMOGRAM 2010 COLOGUARD 2015 COLONOSCOPY 2015 COLORECTAL CANCER SCREENING 2015 FIT TEST 2015 FOBT 2015 SIGMOIDOSCOPY 2015 VIRTUAL COLONOSCOPY 2015 PNEUMOCOCCAL VACCINES (50+ y ears) (1 of 1 - PCV) 2020 ZOSTER VACCINES (1 of 2) 2020 INFLUENZA VACCINE (#1) 2024 COVID-19 VACCINE (1 - 2023-2 5 season) 2024 SCREENING FOR DIABETES 06/27/2025 06/27/2022 HEPATITIS A VACCINES Aged Out No long er eligible based on patient's age to complete this topic HIB VACCINES Aged Out No longer eligi ble based on patient's age to complete this topic MENINGOCOCCAL VACCINES (ACWY) Aged Out No longer eligible based on patient's age to complete this topic Medical Devices Not on file Care Teams Manager Retail Relationship Specialty Start Date End Date Danitza Headley MD 2 [place], [place] [id number] PCP - General Internal Medicine 11/19/24 Additional Source Comments The information contained in this document represents components of the legal health record. It is not the complete legal health record.[facility]
--- NOTE | 2025-01-10 12:48 | AM.OFFWIN_ITS ---
Intake Vital Signs 01/10/25 13:00 Weight 121 lb BP 120/78 Blood Pressure Location Lt brachial Position Sitting Pulse 88 Pulse Source Pulse Oximeter Pulse Oximetry (%) 98 Oxygen Delivery Method Room Air Intake Visit Reasons: EP Pain in stomach Intake Note: Patient here for stomach pain that started today but pt does only have 1 kidney Patient Tobacco Use Status: Never used Tobacco Allergies No Known Allergies Allergy (Verified 01/10/25 13:01) Do you need a note to return to daycare/school/sports/work: No HPI HPI Comments History of Present Illness Details History of Present Illness - The patient is a 54-year-old female wi th pmedhx of Alzheimers disease presenting with abdominal pain with her who is helping answer the questions. - Pain onset occurred during a meal jada ier in the day at 11:30 AM, with no longer present or severe distress. - She reports normal bowel and urinary f unctions, having a bowel movement at 1:00 AM the prior night. - No fever, nausea, or vomiting were rep orted by the patient. - She denies a history of kidney stones and has undergone a nephrectomy. Physical Exam General: Cooperative, healthy appearing, comfortable, no acute distress and well developed Orientation: Patient oriented x3 Limitations: No limitations Head: Normal to inspection Ears: Hearing grossly normal bilaterally Nose: Normal external nose present Face and sinus: Normal facial exam Eyes: Appearance normal, both eyes and all related structures Neck: Normal visual inspection and Yes full ROM Respiratory: Normal respiratory effort GI: normoactive bs, soft, no TTP throughout abdomen, negative Eldridge's. Skin: No rashes or lesions noted Neuro: Patient oriented x3 Extremities: Normal to inspection [facility] Medical History Obesity (BMI 30-39.9) De Quervain's disease (radial styloid tenosynovitis) Hypercholesterolemia History of colon polyps Peroneal tendon rupture Abdominal wall hernia History of pulmonary embolism Wilms' tumor Insomnia Dysplasia of cervix, low grade (REGINE 1) GERD (gastroesophageal reflux disease) Tubular adenoma of colon Asthma Irritable bowel syndrome MARIO positive Surgical History History of esophagogastroduodenoscopy (EGD) Hx of breast biopsy History of cystoscopy Hx of colonoscopy S/P peroneal tendon repair History of nephrectomy Hx of breast reduction, elective Hx of tonsillectomy History of abdominal hysterectomy Family History Father Diabetes Chronic mental illness Mental health disorder Mother Hypertension CVD (cardiovascular disease) Cancer Maternal Grandfather Breast cancer Paternal Grandmother Breast cancer Paternal Aunt Breast cancer Brother Pancreatic cancer Daughter In good health Maternal Uncle Myocardial infarction Maternal Aunt CHF (congestive heart failure) Social History (Updated 12/27/24 @ 15:04 by NOAH Dooley) Household Members: Spouse and Children Housing: Apartment Are you a primary healthcare marketer to a significant other at home: No Do you presently have visiting nurse or other home services: No Alcohol intake: former Comment: glass 1-2 x a week Patient Tobacco Use Status: Never used Tobacco e-Cigarette/Vaping Use: Never Used Second Hand Smoke Exposure: No service: No Current occupational status: disabled Sexual orientation: Straight/Heterosexual Gender identity: Female Cognitive needs: No Hearing needs: No Vision needs: Yes Female Reproductive History Menstrual Age of Menarche: 10 Review of Systems Const All systems reviewed & are unremarkable except as noted in HPI and below Physical Exam Vital Signs: Last Vital Signs Pulse 88 01/10/25 13:00 BP 120/78 01/10/25 13:00 Pulse Ox 98 01/10/25 13:00 Oxygen Delivery Method Room Air 01/10/25 13:00 Assessment & Plan Assessment & Plan (1) Abdominal pain in female: Code(s): R10.9 - Unspecified abdominal pain Plan: The focus was on addressing transient abdominal pain with potential causes i ncluding self-limiting gastrointestinal disturbances. Examination did not highlight any tenderness suggesting a serious condition, vital signs were stable and pt was well appearing. Urinalysis was proposed to rule out any unnoticed urinary infection despite normal bladder examination. UA positive for 2+ leuks, negative nitrites, will treat based on pain and leuks, and send a culture. Cefuroxime sent to pharmacy, advised if pt develops fever, to call PCP office as that would mean the infection traveled to her solo kidney. Observation for fever or pain exacerbation was advised, with a potential emergency response if these symptoms emerged. Recommended calling PCP if pain continues but she is currently not having any pain at this visit. Patient was informed and verbally consented to the use of an ambient scribe for clinic note documentation during this visit. Orders: Orders Urine Culture Today N39.0 - Urinary tract infection, site not specified Medications: New cefuroxime axetil 500 mg PO Q12H 10 tabs 0RF Coding Level of Care Code Est Pt Level 3 (68985) Diagnoses Abdominal pain in female R10.9
[2025-01-10 13:00] VITALS: BP 120/78; PULSE 88; O2SAT 98
== END 2025-01-10 13:40 | disposition home or self-care (01) ==
PROVIDERS: PCP Internal Medicine; Visit Provider Physician Assistant
DX: R10.9 Unspecified abdominal pain (principal); Z13.9 Encounter for screening, unspecified

== ENCOUNTER 2025-01-10 12:40 | Outpatient (REF) | payer OTHER, SELFPAY ==
--- OUTSIDE RECORDS SUMMARY | 2025-01-10 13:31 | XMS_ITS | Clinical Summary ---
Author Organization [facility] Address [address] [place] [address] Phone Care Team Providers Care It Security Specialist Name Role Phone Danitza Headley MD Primary Care Provider [phone] Allergies No known active allergies Medications Fluticasone [...] Sigmoidoscopy 2019 Influenza Vaccine (#1) 2024 Insurance [facility] [place] [address] [facility] Care Teams It Security Specialist Relationship Specialty Start Date End Date Danitza Headley MD [address] [place] MEN[place]ACA PCP - General 12/04/20
--- OUTSIDE RECORDS SUMMARY | 2025-01-10 13:31 | XMS_ITS | Clinical Summary ---
Author Organization [facility] Address [phone] [place] [address] Care Team Providers Care Arbor End Mainspring Former Name Role Phone Danitza Headley MD Primary Care Provider [phone] Allergies No known active allergies Medications No known medications Encounters Date Type Department Care Team Description 11/09/2024 Telephone [facility] [place] Department of Neurology [address] [place] [address] Curly Fatima MD from Last 3 Months [...] Description 03/29/2025 8:00 AM EDT Office Visit [facility] Department of Neurology [address] [place] [address] Jerald Burgos MD 60 [facility] [place] [address] [email or web address] Maintenance Due Date Last Done [...] Medical Devices Not on file Care Teams Arbor End Mainspring Former Relationship Specialty Start Date End Date Danitza Headley MD 2 [place], [place] [phone] PCP - General Internal Medicine 11/19/24 Additional Source Comments The information contained in this document represents components of the legal health record. It is not the complete legal health record.[facility]
--- OUTSIDE RECORDS SUMMARY | 2025-01-10 13:31 | XMS_ITS | Encounter Summary ---
Author Organization [facility] Address [phone] [place] [address] Care Team Providers Care District Manager Postal Service Name Role Phone Pcp, Unknown Primary Care Provider Danitza Branch MD Primary Care Provider [phone] Encounter Details Date Type Department Care Team ([facility] st Contact Info) Description 11/09/2024 [place] [facility] [place] [address] [place] [address] Curly Fatima MD [address] [place] [address] [email or web address] Social History Tobacco Use Types Packs/Day Years [...] 11/22/24. Called x4 the only number listed ([phone]), but it only rings and there is no option to leave message. Left message on gateway, but pt hasn't signed onto gateway since 07/04/22. Also, printed appt reminder letter and mailing it today. documented in this encounter Plan of Treatment Upcoming Encounters Date Type Department Care Team (Late st Contact Info) Description 03/29/2025 8:00 AM EDT Office Visit [facility] Department of Neurology [address] [place] [address] Jerald Burgos MD 60 [facility] [place] [address] [email or web address] documented as of this encounter Visit Diagnoses Not on filedocumented in this encounter Care Teams District Manager Postal Service Relationship Specialty Start Date End Date Pcp, Unknown PCP - General 06/27/22 11/18/24 Danitza Headley MD [address] [place] [address] PCP - General Internal Medicine 11/19/24 documented as of this encounter Additional Source Comments The information contained in this document represents components of the legal health record. It is not the complete legal health record.[facility]
--- OUTSIDE RECORDS SUMMARY | 2025-01-10 13:31 | XMS_ITS | Encounter Summary ---
Author Organization [facility] Address [phone] [place] [address] Care Team Providers Care Meat Blender Name Role Phone Pcp, Unknown Primary Care Provider Unavailabl e Danitza Headley MD Primary Care Provider Encounter Details Date Type Department Care Team (Late st Contact Info) Description 06/27/2022 Procedure Pass [facility], Ct Scan - [address] [address] Social History Tobacco Use Types Packs/Day Years Used Date Smoking Tobacco: Never Assessed Sex and Gender Information Value Date Recorded Sex Assigned at Not on file Gender Identity Not on file Sexual Orientation Not on file documented as of this encounter Plan of Treatment Upcoming Encounters Date Type Department Care Team (Late st Contact Info) Description 03/29/2025 8:00 AM EDT Office Visit [facility] Department of Neurology [address] [place] [address] Jerald Burgos MD 60 [facility] Department [place] [address] [email or web address] documented as of this encounter Visit Diagnoses Not on filedocumented in this encounter Care Teams Meat Blender Relationship Specialty Start Date End Date Pcp, Unknown PCP - General 06/27/22 11/18/24 Danitza Headley MD [address] [place] [address] PCP - General Internal Medicine 11/19/24 documented as of this encounter Additional Source Comments The information contained in this document represents components of the legal health record. It is not the complete legal health record.[facility]
== END 2025-01-10 12:41 | disposition home or self-care (01) ==
LOC: HO.LAB 12:40
PROVIDERS: PCP Internal Medicine
DX: R10.9 Unspecified abdominal pain (principal)
CPT/HCPCS: 81003

== ENCOUNTER 2025-03-02 09:51 | Outpatient (REF) | payer OTHER, SELFPAY ==
--- NOTE | ~2025-03-02 | US_ITS ---
EXAMINATION: US SCREENING ULTRASOUND BREAST, BILATERAL CLINICAL INFORMATION: Dense breasts on mammography. Screening ultrasound. COMPARISON: None available. TECHNIQUE: Ultrasound is performed using grayscale imaging and color Doppler. Imaging is performed to include the four quadrants and retroareolar region. Both breasts are imaged. FINDINGS: Right breast: There is no suspicious finding by ultrasound. There is no solid mass or focal architectural abnormality. Left breast: There is no suspicious finding by ultrasound. There is no solid mass or focal architectural abnormality. US/US breast BI complete IMPRESSION: No suspicious findings on screening breast ultrasound. ASSESSMENT: BI-RADS 1 - Negative RECOMMENDATION: 1 year F/U This patient's information was entered into a reminder system with a target due date for their next mammogram. Electronically signed by: Michelle Thomas DO 03/07/2025 12:26 PM EDT
--- OUTSIDE RECORDS SUMMARY | 2025-03-02 10:50 | XMS_ITS | Clinical Summary ---
Author Organization [facility] Address [address] [place] [address] Phone Care Team Providers Care Chemical Plant Operator Supervisor Name Role Phone Danitza Headley MD Primary Care Provider [phone] Allergies No known active allergies Medications No known medications Social History Tobacco Use Types Packs/Day Years [...] Description 03/29/2025 8:00 AM EDT Office Visit [facility] Department of Neurology [address] [place] [address] Jerald Burgos MD 60 [facility] Department [place] [address] [email or web address] Maintenance Due Date Last Done [...] Medical Devices Not on file Care Teams Chemical Plant Operator Supervisor Relationship Specialty Start Date End Date Danitza Headley MD [address] [place] [address] PCP - General Internal Medicine 11/19/24 Additional Source Comments The information contained in this document represents components of the legal health record. It is not the complete legal health record.[facility]
--- OUTSIDE RECORDS SUMMARY | 2025-03-02 10:50 | XMS_ITS | Encounter Summary ---
Author Organization [facility] Address [address] [address] Phone Care Team Providers Care Outlet Manager Name Role Phone Pcp, Unknown Primary Care Provider Unavailabl e Danitza Headley MD Primary Care Provider [phone] Encounter Details Date Type Department Care Team (Late st Contact Info) Description 06/27/2022 Procedure Pass [facility], Ct Scan - [address] [address] Social History Tobacco Use Types Packs/Day Years Used Date Smoking Tobacco: Never Assessed Sex and Gender Information Value Date Recorded Sex Assigned at Not on file Gender Identity Not on file Sexual Orientation Not on file documented as of this encounter Plan of Treatment Upcoming Encounters Date Type Department Care Team (Late st Contact Info) Description 03/29/2025 8:00 AM EDT Office Visit [facility] Department of Neurology [address] [place] [address] Jerald Burgos MD 60 [facility] [place] [address] [email or web address] documented as of this encounter Visit Diagnoses Not on filedocumented in this encounter Care Teams Outlet Manager Relationship Specialty Start Date End Date Pcp, Unknown PCP - General 06/27/22 11/18/24 Danitza Headley MD [address] [place] [address] PCP - General Internal Medicine 11/19/24 documented as of this encounter Additional Source Comments The information contained in this document represents components of the legal health record. It is not the complete legal health record.[facility]
--- OUTSIDE RECORDS SUMMARY | 2025-03-02 10:50 | XMS_ITS | Clinical Summary ---
Author Organization [facility] Address [address] [place] [address] Phone Care Team Providers Care Wood Sash And Frame Carpenter Name Role Phone Danitza Headley MD Primary Care Provider [phone] Allergies No known active allergies Medications Fluticasone [...] Colorectal Cancer Screening: Sigmoidoscopy 2019 Influenza Vaccine (Season Ended) 2025 Insurance [facility] Care Teams Wood Sash And Frame Carpenter Relationship Specialty Start Date End Date Danitza Headley MD [facility] [place] [address] [place] PCP - General 12/04/20
== END 2025-03-02 09:52 | disposition home or self-care (01) ==
LOC: HO.MAMMO 09:51
PROVIDERS: PCP Internal Medicine; Visit Provider Internal Medicine
DX: Z12.31 Encounter for screening mammogram for malignant neoplasm of breast (principal)
CPT/HCPCS: 76641

== ENCOUNTER → 2025-03-02 10:00 | Outpatient (BNV) | payer OTHER, SELFPAY | PROVIDERS: PCP Internal Medicine; Visit Provider Internal Medicine | DX: R92.8 Other abnormal and inconclusive findings on diagnostic imaging of breast (principal) | CPT/HCPCS: 76641 ==

== ENCOUNTER 2025-03-17 13:23 | Outpatient (AMB) | payer OTHER, SELFPAY ==
--- NOTE | 2025-03-17 13:42 | MHC.OFFVIS ---
Vital Signs 03/17/25 13:43 Height 5 ft 2 in Weight 112 lb BMI 20.5 BP 110/80 Blood Pressure Location Rt brachial Position Sitting Intake Visit Reasons: Follow Up 6mo-Conf Intake Note: Patient presents for follow up referred to [facility] per workload on 11/16 after several attempt to contact patient to book they got no response. referral was closed. Allergies No Known Allergies Allergy (Verified 03/17/25 13:46) HPI Comments Details: 54 y/o female patient presents with her for follow up of dementia. she has been called for Jury duty. she has episodes of crying and laughing. 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 she is very calm - does not get excited, very confused . she has 27 year old daughter and 29 year old son. PET SCAN consistent with Alzheimers disease . History from last visit-Brain MRI result reviewed. No structural epileptogenic lesion identified within limitations of a 1.5 [facility] examination. No hippocampal pathology. Mild global cerebral volume loss. EEG result was Abnormal EEG suggestive of right hemispheric seizure focus, which could result in partial and complex partial seizure disorder. Pt started trileptal 300 mg BID. Pt's states that patient is more confused, has hard time figuring out the dressing, needs help for. She is forgetting her name, too. She is physically active, but need assistance for ADLs. She is on aripirazole, and seroquel, she is doing much better, no visual or auditory hallucination. Pt was [facility] to [facility] for hallucination last year, and started abilify and seroquel. She is followed by psychiatrist. Pt has family hx of Alzheimer, her father and her sister, they all had early onset of Alzheimer. [facility] Medical History Obesity (BMI 30-39.9) De Quervain's disease (radial styloid tenosynovitis) Hypercholesterolemia History of colon polyps Peroneal tendon rupture Abdominal wall hernia History of pulmonary embolism Wilms' tumor Insomnia Dysplasia of cervix, low grade (REGINE 1) GERD (gastroesophageal reflux disease) Tubular adenoma of colon Asthma Irritable bowel syndrome MARIO positive Surgical History History of esophagogastroduodenoscopy (EGD) Hx of breast biopsy History of cystoscopy Hx of colonoscopy S/P peroneal tendon repair History of nephrectomy Hx of breast reduction, elective Hx of tonsillectomy History of abdominal hysterectomy Family History Father Diabetes Chronic mental illness Mental health disorder Mother Hypertension CVD (cardiovascular disease) Cancer Maternal Grandfather Breast cancer Paternal Grandmother Breast cancer Paternal Aunt Breast cancer Brother Pancreatic cancer Daughter In good health Maternal Uncle Myocardial infarction Maternal Aunt CHF (congestive heart failure) Social History Household Members: Spouse and Children Housing: Apartment Are you a primary resident care associate to a significant other at home: No Do you presently have visiting nurse or other home services: No Alcohol intake: former Comment: glass 1-2 x a week Patient Tobacco Use Status: Never used Tobacco e-Cigarette/Vaping Use: Never Used Second Hand Smoke Exposure: No service: No Current occupational status: disabled Sexual orientation: Straight/Heterosexual Gender identity: Female Cognitive needs: No Hearing needs: No Vision needs: Yes Female Reproductive History Menstrual Age of Menarche: 10 Physical Exam Vital Signs: BMI result Body Mass Index 20.5 Const General: cooperative Nutritional Appearance: overweight Orientation/consciousness: oriented to person Neck Neck: Yes full ROM and Yes supple Resp Effort & Inspection: normal respiratory effort and able to speak in complete sentences Neuro General: oriented to person Cranial nerves: Yes CN's II-XII intact bilaterally Gait exam (Neuro): Normal gait present Motor exam (neuro): 5/5 motor strength present throughout, Pronator motor function not present and no tremor noted Coordination: [id number] test normal Psych Appearance: grossly normal Mental Status: mental status grossly normal Speech and movement: Normal speech and movement present Affect: normal affect Attitude: cooperative Assessment & Plan Assessment & Plan (1) Alzheimer's dementia: Comment: PET scan 2023 Code(s): G30.9 - Alzheimer's disease, unspecified; F02.80 - Dementia in other diseases classified elsewhere, unspecified severity, without behavioral disturbance, psychotic disturbance, mood disturbance, and anxiety Category: Medical Qualifiers: Alzheimer's disease onset: early onset Dementia behavioral or psychological symptom: with other behavioral disturbance Dementia severity: severe Qualified Code(s): G30.0 - Alzheimer's disease with early onset; F02.C18 - Dementia in other diseases classified elsewhere, severe, with other behavioral disturbance (2) Partial seizure: Code(s): R56.9 - Unspecified convulsions Category: Medical (3) Neurodegenerative gait disorder: Code(s): R26.89 - Other abnormalities of gait and mobility Plan D/C donepezil 10mg qd Namenda Xr 28 mg qd Trileptal 300mg bid [email or web address] A letter stating that she will not be able to do JUry duty was given to the patients. Medications: New oxcarbazepine (Trileptal) Patient requires oral suspension due to swallowing difficulties. Oxcarbazepine may Take 5mL PO BID daily. 300 mg (5 mL) PO BID 30 days 300 mL 3RF alzheimers dementia MDD 10ml F02.C18 - Dementia in other diseases classified elsewhere, severe, with other behavioral disturbance, G30.0 - Alzheimer's disease with early onset, R41.89 - Other symptoms and signs involving cognitive functions and awareness Coding Level of Care Code Est Pt Level 4 (06591) Complex EM visit Add On G2211 Diagnoses Severe early onset Alzheimer's dementia with other behavioral disturbance G30.0; F02.C18 Alzheimer's disease onset: early onset Dementia behavioral or psychological symptom: with other behavioral disturbance Dementia severity: severe Partial seizure R56.9 Neurodegenerative gait disorder R26.89
[2025-03-17 13:43] VITALS: BP 110/80; BMI 20.5
--- OUTSIDE RECORDS SUMMARY | 2025-03-17 15:42 | XMS_ITS | Clinical Summary ---
Author Organization [facility] Address [address] [place] [address] Phone Care Team Providers Care Spectrographer Name Role Phone Danitza Headley MD Primary Care Provider [phone] Allergies No known active allergies Medications Fluticasone [...] Last Done Comments Breast Cancer Screening 1970 Hepatitis B Vaccine (1 of 3 - 19+ 3-dose series) 11/10 Pneumococcal Vaccine: 50+ Years (1 of 2 - PCV) 989 Colorectal Cancer Screening: Annual FOBT 2019 Colorectal Cancer Screening: Colonoscopy 2019 Colorectal Cancer Screening: Sigmoidoscopy 2019 Influenza Vaccine (Season Ended) 2025 Insurance [facility] Commercial t Commercial Care Teams Spectrographer Relationship Specialty Start Date End Date Danitza Headley MD [address] [place], [place] PCP - General 12/04/20
--- OUTSIDE RECORDS SUMMARY | 2025-03-17 15:42 | XMS_ITS | Clinical Summary ---
Author Organization [facility] Address [address] [place] [address] Phone Care Team Providers Care Affiliate Marketing Coordinator Name Role Phone Danitza Headley MD Primary Care Provider Allergies No known active allergies Medications No [...] Description 03/29/2025 8:00 AM EDT Office Visit [facility] Department of Neurology [address] [place] [address] Jerald Burgos MD [address] [facility] Department [place] [address] [email or web address] Maintenance Due Date Last [...] Medical Devices Not on file Care Teams Affiliate Marketing Coordinator Relationship Specialty Start Date End Date Danitza Headley MD [address] [place] [address] PCP - General Internal Medicine 11/19/24 Additional Source Comments The information contained in this document represents components of the legal health record. It is not the complete legal health record.[facility]
--- OUTSIDE RECORDS SUMMARY | 2025-03-17 15:42 | XMS_ITS | Encounter Summary ---
Author Organization [facility] Address [address] [address] Phone Care Team Providers Care Cigarette Carton Sealer Name Role Phone Pcp, Unknown Primary Care Provider Unavailabl e Danitza Headley MD Primary Care Provider [phone] Encounter Details Date Type Department Care Team (Late st Contact Info) Description 06/27/2022 Procedure Pass [facility], Ct Scan - [address] [address] Social History Tobacco Use Types Packs/Day Years [...] [facility] Department of Neurology [address] [place] [address] Jerald Burgos MD [address] [facility] [place] [address] [email or web address] documented as of this encounter Visit Diagnoses Not on filedocumented in this encounter Care Teams Cigarette Carton Sealer Relationship Specialty Start Date End Date Pcp, Unknown PCP - General 06/27/22 11/18/24 Danitza Headley MD [address] [place] [address] PCP - General Internal Medicine 11/19/24 documented as of this encounter Additional Source Comments The information contained in this document represents components of the legal health record. It is not the complete legal health record.[facility]
== END 2025-03-17 14:10 | disposition home or self-care (01) ==
LOC: HO.HSMS 13:23
PROVIDERS: PCP Internal Medicine; Visit Provider Psychiatry & Neurology Neurology
DX: G30.0 Alzheimer's disease with early onset (principal); F02.C18 Dementia in other diseases classified elsewhere, severe, with other behavioral disturbance; R56.9 Unspecified convulsions; R26.89 Other abnormalities of gait and mobility
CPT/HCPCS: 99214; G2211

== ENCOUNTER 2025-10-06 14:50 | Outpatient (REF) | payer OTHER, MEDICARE, SELFPAY ==
--- NOTE | ~2025-10-06 | XR_ITS ---
EXAMINATION: XR SHOULDER, LEFT CLINICAL INFORMATION: M25.519 - Pain in unspecified shoulder COMPARISON: None available. TECHNIQUE: AP external rotation, Grashey, scapular Y, and axillary views of the left shoulder. FINDINGS: No visible acute fracture, dislocation or suspicious bony lesion. Acromioclavicular alignment is maintained. Glenohumeral articulation is maintained, limited evaluation the joint space on the provided views. No abnormal soft tissue calcification. XR/XR shoulder LT min 2V IMPRESSION: No acute osseous findings Electronically signed by: Hema Neal MD 10/06/2025 04:31 PM EST RP
== END 2025-10-06 14:51 | disposition home or self-care (01) ==
LOC: HO.HMGCX 14:50
PROVIDERS: PCP Internal Medicine; Visit Provider Physician Assistant
DX: M25.512 Pain in left shoulder (principal); G89.11 Acute pain due to trauma
CPT/HCPCS: 73030; 99212

== ENCOUNTER 2025-10-06 14:50 | Outpatient (AMB) | payer MEDICARE, OTHER, SELFPAY ==
[2025-10-06 15:00] VITALS: BP 120/72; PULSE 78; O2SAT 97
--- NOTE | 2025-10-06 15:00 | AM.OFFWIN_ITS ---
Intake Vital Signs 10/06/25 15:00 Height 5 ft 2 in BMI Reason not done Patient refused/unable BP 120/72 Blood Pressure Location Lt brachial Position Sitting Pulse 78 Pulse Source Pulse Oximeter Pulse Oximetry (%) 97 Intake Visit Reasons: EP Injury to left arm Intake Note: pt is here for possible shoulder dislocation, requesting xray Patient Tobacco Use Status: Never used Tobacco Allergies No Known Allergies Allergy (Verified 10/06/25 15:02) Do you need a note to return to daycare/school/sports/work: No HPI HPI Comments History of Present Illness Details History of Present Illness - The patient is a 54-year-old female wi th her presenting with shoulder asymmetry following a fall. - The fall occurred over the weekend whi le visiting family in [place]. - The patient did not hit her head or lo se consciousness during the fall. - She is not on any blood thinners. - Due to frontal lobe dementia, the geneva ent does not express pain, making it difficult to assess discomfort. - The left shoulder appears visibly high er than the right, but clavicles are symmetrical. - The patient has a history of contractu re, limiting range of motion at baseline. Review of Systems - Neurological: Denies loss of conscious ness, unable to express pain due to frontal lobe dementia All systems reviewed and are unremarkable except as noted in HPI Physical Exam General: Cooperative, healthy appearing, comfortable, no acute distress and well developed Orientation: Patient oriented x3 Limitations: Impossible to do any range of motion exercises due to her contracture Head: Normal to inspection Ears: Hearing grossly normal bilaterally Nose: Normal External nose present Face and sinus: Normal facial exam Eyes: Appearance normal, both eyes and all related structures Neck: Normal visual inspection and Yes full ROM Respiratory: Normal respiratory effort and able to speak in complete sentences. Skin: No rashes or lesions noted Neuro: Patient oriented x3 Extremities: Left shoulder visibly higher than the right, but clavicles are symmetrical and equal bilaterally. no TTP of the entire left shoulder anterior, lateral, or posterior. No TTP left elbow or forearm. [facility] Medical History (Updated 10/06/25 @ 15:32 by Quyen Abreu PA-C) Acute shoulder pain due to trauma Obesity (BMI 30-39.9) De Quervain's disease (radial styloid tenosynovitis) Hypercholesterolemia History of colon polyps Peroneal tendon rupture Abdominal wall hernia History of pulmonary embolism Wilms' tumor Insomnia Dysplasia of cervix, low grade (REGINE 1) GERD (gastroesophageal reflux disease) Tubular adenoma of colon Asthma Irritable bowel syndrome MARIO positive Surgical History History of esophagogastroduodenoscopy (EGD) Hx of breast biopsy History of cystoscopy Hx of colonoscopy S/P peroneal tendon repair History of nephrectomy Hx of breast reduction, elective Hx of tonsillectomy History of abdominal hysterectomy Family History Father Diabetes Chronic mental illness Mental health disorder Mother Hypertension CVD (cardiovascular disease) Cancer Maternal Grandfather Breast cancer Paternal Grandmother Breast cancer Paternal Aunt Breast cancer Brother Pancreatic cancer Daughter In good health Maternal Uncle Myocardial infarction Maternal Aunt CHF (congestive heart failure) Social History Household Members: Spouse and Children Housing: Apartment Are you a primary child care associate teacher to a significant other at home: No Do you presently have visiting nurse or other home services: No Alcohol intake: former Comment: glass 1-2 x a week Patient Tobacco Use Status: Never used Tobacco e-Cigarette/Vaping Use: Never Used Second Hand Smoke Exposure: No service: No Current occupational status: disabled Sexual orientation: Straight/Heterosexual Gender identity: Female Cognitive needs: No Hearing needs: No Vision needs: Yes Female Reproductive History Menstrual Age of Menarche: 10 Physical Exam Vital Signs: Last Vital Signs Pulse 78 10/06/25 15:00 BP 120/72 10/06/25 15:00 Pulse Ox 97 10/06/25 15:00 Assessment & Plan Assessment & Plan (1) Acute shoulder pain due to trauma: Code(s): M25.519 - Pain in unspecified shoulder; G89.11 - Acute pain due to trauma Qualifiers: Laterality: left Qualified Code(s): M25.512 - Pain in left shoulder; G89.11 - Acute pain due to trauma Plan: Patient was informed and verbally consented to the use of an ambient scribe for clinic note documentation during this visit. Shoulder Asymmetry - Plan to obtain an x-ray to assess for any injury to the shoulder. - my interpretation of the left shoulder x-ray is there is no dislocation and no fracture. Patient would likely not tolerate a shoulder sling. Patient and her will head home and I will call them if the results are different from my interpretation. Orders: Orders XR shoulder LT min 2V Today G89.11 - Acute pain due to trauma, M25.519 - Pain in unspecified shoulder Coding Level of Care Code Est Pt Level 4 (95670) Diagnoses Acute pain of left shoulder due to trauma M25.512; G89.11 Laterality: left
--- OUTSIDE RECORDS SUMMARY | 2025-10-06 18:05 | XMS_ITS | Encounter Summary ---
Author Organization [facility] Address [address] [place] [address] Phone Care Team Providers Care Coal Chute Worker Name Role Phone Pcp, Unknown Primary Care Provider Danitza Branch MD Primary Care Provider [phone] Encounter Details Date Type Department Care Team (Late st Contact Info) Description 06/27/2022 Procedure Pass [facility], Ct Scan - [facility] [address] [place] [address] Social History Tobacco Use Types Packs/Day Years Used Date Smoking Tobacco: Never Assessed Comments Unknown Sex and Gender Information Value Date Recorded Sex Assigned at Not on file Legal Sex Female 1:27 PM EDT Gender Identity Not on file Sexual Orientation Not on file documented as of this encounter Functional Status * Calculated C-SSRS Risk Score (Lifetime/Recent) Answer Date of Assessment Author No Risk Indicated 06/27/2022 2:35 PM EDT Sarah Barr, LINDA * [place] Suicide Severity Rating Scale (Screener/Recent Self-Report) Question Answer Date of Assessment Author 1. Wish to be (Past 1 Month) No 022 2:35 PM EDT Sarah Barr, RN 2. Non-Specific Active Suici david Thoughts (Past 1 Month) No 06/27/2022 2:35 PM EDT Sarah Barr , RN 6. Suicidal Behavior (Lifetime) No 2:35 PM EDT Sarah Barr, RN documented as of this encounter Plan of Treatment Not on file documented as of this encounter Visit Diagnoses Not on filedocumented in this encounter Care Teams Coal Chute Worker Relationship Specialty Start Date End Date Pcp, Unknown PCP - General 06/27/22 11/18/24 Danitza Headley MD [address] [place] [address] [address] [place] [phone] PCP - General Internal Medicine 11/19/24 documented as of this encounter Additional Source Comments The information contained in this document represents components of the legal health record. It is not the complete legal health record.[facility]
--- OUTSIDE RECORDS SUMMARY | 2025-10-06 18:05 | XMS_ITS | Clinical Summary ---
Author Organization [facility] Address [address] [place] [address] Phone Care Team Providers Care Director Clinical Data Name Role Phone Danitza Headley MD Primary Care Provider [phone] Allergies No known active allergies Medications No [...] with a working camera? Not on file Comments Unknown Sex and Gender Information Value Date Recorded Sex Assigned at Not on file Legal Sex Female 1:27 PM EDT Gender Identity Not on file Sexual Orientation Not on file Last Filed Vital Signs Vital Sign Reading Time Taken Comments Blood Pressure 138/85 06/27/2022 8:31 PM EDT Pulse 58 06/27/2022 8:31 PM EDT Temperature 36.3 C (97.3 F) 06/27/2022 8:31 PM EDT Respiratory Rate 16 06/27/2022 8:31 PM EDT Oxygen Saturation 99% 06/27/2022 8:31 PM EDT Inhaled Oxygen Concentration - - Weight 70.3 kg (155 lb) 06/27/2022 2:33 PM EDT Height 157.5 cm (5' 2 ) 06/27/2022 2:33 PM EDT Body Mass Index 28.35 06/27/2022 2:33 PM EDT Plan of Treatment Health Maintenance Due Date Last Done Comments Adult Td,Tdap Booster 1970 LIPID PANEL 1970 DEPRESSION SCREENING 1982 SMOKING Hx and SMOKELESS TOB ACCO SCREENING 1983 HEPATITIS C SCREENING 1988 HIV ONE-TIME SCREENING (18-6 5 YEARS) 1988 PAP SMEAR 1991 MAMMOGRAM 2010 COLOGUARD 2015 COLONOSCOPY 2015 COLORECTAL CANCER SCREENING 2015 FIT TEST 2015 FOBT 2015 SIGMOIDOSCOPY 2015 VIRTUAL COLONOSCOPY 2015 PNEUMOCOCCAL VACCINES (50+ y ears) (1 of 1 - PCV) 2020 ZOSTER VACCINES (1 of 2) 2020 INFLUENZA VACCINE (#1) 2025 COVID-19 VACCINE (1 - 2024-2 6 season) 2025 RSV VACCINE (1 - 1-dose 75+ series) 2045 HEPATITIS A VACCINES Aged Out No long er eligible based on patient's age to complete this topic HIB VACCINES Aged Out No longer eligi ble based on patient's age to complete this topic IPV VACCINES Aged Out No longer eligi ble based on patient's age to complete this topic MENINGOCOCCAL VACCINES (ACWY) Aged Out No longer eligible based on patient's age to complete this topic MENINGOCOCCAL VACCINES (B) Aged Out N o longer eligible based on patient's age to complete this topic Medical Devices Not on file Insurance [employer] HMO POS EPO [facility] [place] [id number] [facility] POS EPO [employer] [phone] [employer] [id number] [place] [place] [phone] [facility] [place] [id number] [facility] [place] [place] [id number] [employer] POS EPO Care Teams Director Clinical Data Relationship Specialty Start Date End Date Danitza Headley MD [address] [facility] [address] [phone] PCP - General Internal Medicine 11/19/24 Additional Source Comments The information contained in this document represents components of the legal health record. It is not the complete legal health record.[facility]
== END 2025-10-06 16:11 | disposition home or self-care (01) ==
PROVIDERS: PCP Internal Medicine; Visit Provider Physician Assistant
DX: M25.512 Pain in left shoulder (principal); G89.11 Acute pain due to trauma

== ENCOUNTER → 2025-10-06 15:31 | Outpatient (BNV) | payer OTHER, MEDICARE, SELFPAY | PROVIDERS: PCP Internal Medicine; Visit Provider Radiology Diagnostic Ultrasound | DX: M25.512 Pain in left shoulder (principal) | CPT/HCPCS: 73030 ==